=== PATIENT | female | born 1940 | race Caucasian/White ===

== ENCOUNTER 2018-05-31 10:07 | Emergency (ER) | payer OTHER ==
[2018-05-31] MEDS ORDERED: HYDROCODONE/APAP 7.5/325 MG TAB ONE (11:05)
--- NOTE | 2018-05-31 11:50 | ER ---
Nurse's Notes [facility] Name: Radha Limon Age: 78 yrs Sex: Female : 1940 Arrival Date: 05/31/2018 Time: 10:09 Bed 11 Private MD: None, None Diagnosis: Displaced fracture of fifth metatarsal bone, right foot Presentation: 05/31 10:11 Presenting complaint: Patient states: i fell a week ago and hurt my R foot mostly on hj the side of the foot, and now is swollen and it hurts, 8/10; denies hitting head and LOC; denies tingling and numbness;. Transition of care: patient was not received from another setting of care. Onset of symptoms was May 31, 2018. Risk Assessment: Do you want to hurt yourself or someone else? Patient reports no desire to harm self or others. Initial Sepsis Screen: Does the patient meet any 2 criteria? No. Patient's initial sepsis screen is negative. Does the patient have a suspected source of infection? No. Patient's initial sepsis screen is negative. Care prior to arrival: None. 10:11 Method Of Arrival: Ambulatory 10:11 Acuity: CRISTHIAN 4 hj Triage Assessment: 10:16 General: Appears in no apparent distress. uncomfortable, Behavior is calm, cooperative, hj appropriate for age. Pain: Complains of pain in lateral side of right foot and dorsum of right foot. Historical: - Allergies: 10:16 No Known Drug Allergies; hj - Home Meds: 10:16 aspirin 81 mg Oral chew 1 tab once daily [Active]; Furosemide Oral [Active]; ipratropium-albuterol 0.5 mg-3 mg(2.5 mg base)/3 mL Inhl nebu 3 mL 4 times per day [Active]; levothyroxine 50 mcg tab 1 tab once daily [Active]; lisinopril 10 mg Oral tab 1 tab once daily [Active]; metformin 500 mg Oral tab 1 tab 2 times per day [Active]; nitroglycerin 0.4 mg SL subl 1 tab [Active]; Plavix 75 mg Oral tab 1 tab once daily [Active]; ProAir 1to 2 puffs by mouth every 4-6 hrs as needed [Active]; simvastatin 20 mg Oral tab 1 tab once daily [Active]; Simvastatin Oral [Active]; Symbicort inhalation [Active]; - PMHx: 10:16 COPD; Diabetes - NIDDM; Hyperlipidemia; Hypothyroidism; hj - PSHx: 10:16 Heart procedure; Stent to right leg; Cholecystectomy; hj - Immunization history:: Adult Immunizations up to date. - Social history:: Smoking status: Patient uses tobacco products, Patient/guardian denies using alcohol. - Ebola Screening: : Patient negative for fever greater than or equal to 101.5 degrees Fahrenheit, and additional compatible Ebola Virus Disease symptoms Patient denies exposure to infectious person Patient denies travel to an Ebola-affected area in the 21 days before illness onset. Screenin:16 Abuse screen: Denies threats or abuse. Denies injuries from another. Nutritional hj screening: No deficits noted. Tuberculosis screening: No symptoms or risk factors identified. Fall Risk None identified. Assessment: 10:42 General: Appears in no apparent distress. Behavior is calm, cooperative. Pain: iw Complains of pain in right foot. Neuro: Level of Consciousness is awake, alert, obeys commands, Oriented to person, place, time, situation, Moves all extremities. Full function. Cardiovascular: Patient's skin is warm and dry. 10:43 Respiratory: Respiratory effort is even, unlabored, Respiratory pattern is regular, iw symmetrical. Vital Signs: 10:17 BP 109 / 94; Pulse 94; Resp 20; Temp 98.3(TE); Pulse Ox 94% on R/A; Weight 73.94 kg; hj Height 5 ft. 7 in. (170.18 cm); Pain 8/10; 10:17 Body Mass Index 25.53 (73.94 kg, 170.18 cm) ED Course: 10:09 Patient arrived in ED. mr 10:09 None, None is Private Physician. mr 10:14 Triage completed. hj 10:17 Arm band placed on left wrist. hj 10:17 Patient has correct armband on for positive identification. Bed in low position. Call light in reach. Side rails up X 1. 10:38 Johanna Benedict, MIKAL is Primary Nurse. iw 10:39 Owen Mantilla PA is PHCP. jr8 10:39 Taye Addison MD is Attending Physician. jr8 11:47 X-ray completed. Portable x-ray completed in exam room. Patient tolerated procedure la2 well. 11:48 Gilbert Crews DPM is Referral Physician. jr8 11:51 Ronald Carreno DPM is Referral Physician. jr8 11:51 Referral Physician role handed off by Gilbert Crews DPM jr8 12:00 XRAY Foot RIGHT 3 View In Process Unspecified. EDMS 12:20 No provider procedures requiring assistance completed. Patient did not have IV access iw during this emergency room visit. Administered Medications: 11:02 Drug: [place] (7.5 mg-325 mg) 1 tabs Route: PO; iw Outcome: 11:50 Discharge ordered by MD. jr8 12:22 Discharged to home via wheelchair, with family. iw 12:22 Condition: good 12:22 Discharge instructions given to patient, family, Instructed on discharge instructions, follow up and referral plans. medication usage, Demonstrated understanding of instructions, follow-up care, medications, Prescriptions given X 1. 12:24 Patient left the ED. iw Signatures: Dispatcher [employer] EDMS Agnieszka Moulton Irene RN MIKAL Owen Mantilla PA PA jr8 Carlito Andre RN RN hj Ardoin, Leslie la2 Corrections: (The following items were deleted from the chart) 10:14 10:11 Presenting complaint: Patient states: i fell a week ago and hurt my R foot, and hj now is swollen and it hurts, 06/02; denies hitting head and LOC; denies tingling and numbness; hj
--- NOTE | 2018-05-31 11:51 | EDPHYS ---
Physician Documentation [facility] Name: Radha Limon Age: 78 yrs Sex: Female : 1940 Arrival Date: 05/31/2018 Time: 10:09 Bed 11 Private MD: None, None ED Physician Taye Addison HPI: 05/31 10:56 This 78 yrs old Female presents to ER via Ambulatory with complaints of Foot jr8 Pain. 10:56 The patient presents with pain, swelling, tenderness. The complaints affect the lateral jr8 aspect of right foot and dorsum of right foot. Onset: The symptoms/episode began/occurred acutely, 2 week(s) ago. Modifying factors: The symptoms are alleviated by nothing. the symptoms are aggravated by movement, weight bearing. Associated signs and symptoms: The patient has no apparent associated signs or symptoms. Severity of symptoms: At their worst the symptoms were mild, in the emergency department the symptoms are unchanged. The patient has not experienced similar symptoms in the past. The patient has not recently seen a physician. stated that she fell 2 weeks ago on right foot. Since then has had continued pain . Historical: - Allergies: 10:16 No Known Drug Allergies; hj - Home Meds: 10:16 aspirin 81 mg Oral chew 1 tab once daily [Active]; Furosemide Oral [Active]; ipratropium-albuterol 0.5 mg-3 mg(2.5 mg base)/3 mL Inhl nebu 3 mL 4 times per day [Active]; levothyroxine 50 mcg tab 1 tab once daily [Active]; lisinopril 10 mg Oral tab 1 tab once daily [Active]; metformin 500 mg Oral tab 1 tab 2 times per day [Active]; nitroglycerin 0.4 mg SL subl 1 tab [Active]; Plavix 75 mg Oral tab 1 tab once daily [Active]; ProAir 1to 2 puffs by mouth every 4-6 hrs as needed [Active]; simvastatin 20 mg Oral tab 1 tab once daily [Active]; Simvastatin Oral [Active]; Symbicort inhalation [Active]; - PMHx: 10:16 COPD; Diabetes - NIDDM; Hyperlipidemia; Hypothyroidism; hj - PSHx: 10:16 Heart procedure; Stent to right leg; Cholecystectomy; hj - Immunization history:: Adult Immunizations up to date. - Social history:: Smoking status: Patient uses tobacco products, Patient/guardian denies using alcohol. - Ebola Screening: : Patient negative for fever greater than or equal to 101.5 degrees Fahrenheit, and additional compatible Ebola Virus Disease symptoms Patient denies exposure to infectious person Patient denies travel to an Ebola-affected area in the 21 days before illness onset. ROS: 10:56 Eyes: Negative for injury, pain, redness, and discharge, ENT: Negative for injury, jr8 pain, and discharge, Neck: Negative for injury, pain, and swelling, Cardiovascular: Negative for chest pain, palpitations, and edema, Respiratory: Negative for shortness of breath, cough, wheezing, and pleuritic chest pain, Abdomen/GI: Negative for abdominal pain, nausea, vomiting, diarrhea, and constipation, Back: Negative for injury and pain, Skin: Negative for injury, rash, and discoloration, Neuro: Negative for headache, weakness, numbness, tingling, and seizure. 10:56 MS/extremity: Positive for ecchymosis, pain, swelling, tenderness, of the right foot. Exam: 10:56 Cardiovascular: Regular rate and rhythm with a normal S1 and S2. No gallops, murmurs, jr8 or rubs. Normal PMI, no JVD. No pulse deficits. Respiratory: Lungs have equal breath sounds bilaterally, clear to auscultation and percussion. No rales, rhonchi or wheezes noted. No increased work of breathing, no retractions or nasal flaring. Skin: Warm, dry with normal turgor. Normal color with no rashes, no lesions, and no evidence of cellulitis. Neuro: Awake and alert, GCS 15, oriented to person, place, time, and situation. Cranial nerves II-XII grossly intact. Motor strength 5/5 in all extremities. Sensory grossly intact. Cerebellar exam normal. Normal gait. 10:56 Musculoskeletal/extremity: Extremities: grossly normal except: noted in the right foot: ecchymosis, pain, swelling, tenderness, ROM: intact in all extremities, limited active range of motion due to pain, limited passive range of motion due to pain, Circulation is intact in all extremities. Sensation intact. Vital Signs: 10:17 BP 109 / 94; Pulse 94; Resp 20; Temp 98.3(TE); Pulse Ox 94% on R/A; Weight 73.94 kg; hj Height 5 ft. 7 in. (170.18 cm); Pain 06/02; 10:17 Body Mass Index 25.53 (73.94 kg, 170.18 cm) Procedures: 11:48 Splinting: Splint applied to right foot using Ortho 3D boot, applied by nurse. Examined jr8 by me, post splint application: neurovascular intact, 2+ distal pulses palpable, brisk capillary refill noted, Patient tolerated well. MDM: 10:41 Patient medically screened. jr8 11:48 Data reviewed: vital signs, nurses notes, radiologic studies, plain films, and as a jr8 result, I will discharge patient. Data interpreted: Pulse oximetry: on room air is 94 %. Interpretation: acceptable. Counseling: I had a detailed discussion with the patient and/or guardian regarding: the historical points, exam findings, and any diagnostic results supporting the discharge/admit diagnosis, radiology results, the need for outpatient follow up, a freight solicitor, to return to the emergency department if symptoms worsen or persist or if there are any questions or concerns that arise at home. 05/31 10:40 Order name: XRAY Foot RIGHT 3 View; Complete Time: 12:16 jr8 Administered Medications: 11:02 Drug: [place] (7.5 mg-325 mg) 1 tabs Route: PO; Disposition: 15:23 Co-signature as Attending Physician, Taye Addison MD. rn Disposition: 05/31/18 11:50 Discharged to Home. Impression: Displaced fracture of fifth metatarsal bone, right foot. - Condition is Stable. - Discharge Instructions: Avulsion Fracture of the Foot. - Prescriptions for Tramadol 50 mg Oral Tablet - take 1 tablet by ORAL route every 8 hours as needed; 20 tablet. - Medication Reconciliation Form, Thank You Letter, Antibiotic Education, Prescription Opioid Use form. - Follow up: Gilbert Crews DPM; When: 2 - 3 days; Reason: Recheck today's complaints, Continuance of care, Re-evaluation by your physician. Follow up: Ronald Carreno DPM; When: 2 - 3 days; Reason: Recheck today's complaints, Continuance of care, Re-evaluation by your physician. - Problem is new. - Symptoms have improved. Signatures: Dispatcher [employer] Johanna Swift RN RN iw Nieto, Roman, MD MD rn Roszak Owen, PA PA jr8 Carlito Andre RN RN hj Corrections: (The following items were deleted from the chart) 11:51 11:50 05/31/2018 11:50 Discharged to Home. Impression: Displaced fracture of fifth jr8 metatarsal bone, right foot. Condition is Stable. Forms are Medication Reconciliation Form, Thank You Letter, Antibiotic Education, Prescription Opioid Use. Follow up: Gilbert Crews; When: 2 - 3 days; Reason: Recheck today's complaints, Continuance of care, Re-evaluation by your physician. Problem is new. Symptoms have improved. jr8 12:24 11:51 05/31/2018 11:50 Discharged to Home. Impression: Displaced fracture of fifth iw metatarsal bone, right foot. Condition is Stable. Discharge Instructions: Avulsion Fracture of the Foot. Prescriptions for Tramadol 50 mg Oral Tablet - take 1 tablet by ORAL route every 8 hours as needed; 20 tablet. and Forms are Medication Reconciliation Form, Thank You Letter, Antibiotic Education, Prescription Opioid Use. Follow up: Dr. Ronald Carreno; When: 2 - 3 days; Reason: Recheck today's complaints, Continuance of care, Re-evaluation by your physician. Problem is new. Symptoms have improved. jr8
--- NOTE | 2018-05-31 12:13 | RAD REPORT ---
EXAM DESCRIPTION: RAD - Foot Right 3 View - 05/31/2018 11:59 am CLINICAL HISTORY: PAIN COMPARISON: Foot Right 3 View dated 09/15/2017 FINDINGS: Oblique fracture is present involving the distal fifth metatarsal shaft. Soft tissue swell ing is seen about the foot.
[2018-05-31 12:28] VITALS: BP 109/94; TEMP 98.3; O2SAT 94
== END 2018-05-31 12:24 | disposition home or self-care (01) ==
LOC: ER 10:07
DX: S62.306A Unspecified fracture of fifth metacarpal bone, right hand, initial encounter for closed fracture (principal); W19.XXXA Unspecified fall, initial encounter; Y93.9 Activity, unspecified; Y92.9 Unspecified place or not applicable; Z79.01 Long term (current) use of anticoagulants; Z79.82 Long term (current) use of aspirin; Z72.0 Tobacco use; E78.5 Hyperlipidemia, unspecified; E03.9 Hypothyroidism, unspecified; E11.9 Type 2 diabetes mellitus without complications
CPT/HCPCS: 99283

== ENCOUNTER 2018-06-12 17:45 | Inpatient (IN) | payer OTHER ==
[2018-06-12 19:37] LABS: Protime INR 0.97
[2018-06-12] MEDS ORDERED: METHYLPREDNISOLONE 125 MG INJ ONE (19:47)
[2018-06-12] MEDS ORDERED: ALBUTEROL 2.5 MG/3 ML NEB SOL ONE ×2 (19:47→20:57)
[2018-06-12] MEDS ORDERED: FENTANYL CITR 100 MCG/2 ML ONE (19:48)
[2018-06-12] MEDS ORDERED: NA CHLORIDE 0.9% 1,000 ML ONE (19:48)
--- NOTE | 2018-06-12 20:00 | RAD REPORT ---
EXAM DESCRIPTION: RAD - Pelvis - 06/12/2018 7:37 pm CLINICAL HISTORY: fall Left-sided pain COMPARISON: None FINDINGS: AP pelvis, left hip and left femur - multiple projections are submitted No acute fracture or dislocation is seen. Diffuse osteopenia. No radiographic evidence of AVN. Heavy atherosclerosis is seen. If patient pain persists or there is difficulty with weight-bearing, MR imag ing followup would be recommended.
[2018-06-12 20:01] LABS: Absolute Lymphocytes (CBC) 1.6 K/uL (0.7-4.9); Absolute Monocytes 0.5 K/uL (0.1-1.3); Absolute Neutrophil 3.5 K/uL (1.8-8.0); Basophils % 0.4 % (0-1.3); Eosinophils % 0.7 % (0-4.4); Lymphocytes % 28.8 % (15.3-44.8); MCH 29.1 pg (27.0-35.0); MCV 90.5 fL (80-100); MPV 8.1 fL (7.6-11.3); Monocytes % 8.9 % (3.3-12.3); RBC Red Blood Cell Count 5.52 M/uL (3.86-4.86)
[2018-06-12 20:04] LABS: ALT/SGPT 10 U/L (12-78); AST/SGOT 20 U/L (15-37); Albumin 3.3 g/dL (3.4-5.0); Alkaline Phosphatase 102 U/L (45-117); BUN Blood Urea Nitrogen 15 mg/dL (7-18); Bicarbonate 36 mmol/L (21-32); Bilirubin Direct < 0.1 mg/dL (0-0.2); Bilirubin Total 0.5 mg/dL (0.2-1.0); CKMB Creatine Kinase MB < 1.0 ng/mL (0.3-3.6); Creatine Phosphokinase 72 U/L (26-192); Glucose Level 92 mg/dL (74-106); Lipase 134 U/L (73-393); Magnesium 2.4 mg/dL (1.8-2.4); NT PRO-BNP 1034 pg/mL (<450); Protein, Total 8.3 g/dL (6.4-8.2); Sodium Level 136 mmol/L (136-145)
--- NOTE | 2018-06-12 21:03 | RAD REPORT ---
EXAM DESCRIPTION: CT - Head C Spine Cap W Con - 06/12/2018 8:42 pm CLINICAL HISTORY: Trauma, head and neck injury. Chest, abdomen and pelvis pain. PAIN COMPARISON: Head C Spine Cap W Con dated 02/20/2016 TECHNIQUE: CT head without contrast. CT cervical spine without contrast with coronal and sagittal reformatted images. CT chest, abdomen and pelvis with IV contrast (approximately 100 mL nonionic IV contrast) with queen l and sagittal reformatted images of the spine. All CT scans are performed using dose optimization technique as appropriate and may include automated exposure control or mA/KV adjustment according to patient size. FINDINGS: CT HEAD WITHOUT CONTRAST: No intracranial hemorrhage, hydrocephalus or extra-axial fluid collection. Prominent diminished densi ty is seen in the periventricular and deep white matter compatible with chronic microvascular ischemi c changes. No areas of brain edema or midline shift. The paranasal sinuses and mastoids are clear. The calvarium is intact. CT CERVICAL SPINE WITHOUT CONTRAST: No fracture or subluxation. Significant carotid atherosclerosis noted. The prevertebral soft tissues are normal in thickness.A large diffuse thyroid goiter is seen. CT CHEST, ABDOMEN, PELVIS WITH CONTRAST: Mediastinal lymphadenopathy is noted, in the pretracheal space measuring 13 mm, right hilar region me asuring 15 mm and sub-carinal region measuring 12 mm. Irregular mass is present in the superior segme nt right lower lobe medially posterior to the right hilum measuring 3.4 x 3.3 cm. Adjacent opacities in the medial superior segment right lower lobe are likely related to postobstructive pneumonitis. Th e mass appears to abut the bronchus to the superior segment.Prominent COPD pattern is noted.No pneumo thorax or pericardial/pleural fluid. No evidence of intra-abdominal visceral injury, free fluid or free air. Mild liver cirrhosis suspecte d appear cholecystectomy clips is seen. Infrarenal abdominal aortic aneurysm is present measuring 4.2 cm in transverse dimension. Moderate mural thrombus is present. Calcifications are seen in the pancr eas likely related to chronic pancreatitis. No pelvic hematoma. Prominent degenerative changes present lower lumbar spine. 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 Mediastinal lymphadenopathy is present, presumably metastatic in nature. No trauma related abnormality is seen.
--- NOTE | 2018-06-12 21:03 | RAD REPORT ---
EXAM DESCRIPTION: RAD - Chest Single View - 06/12/2018 7:38 pm CLINICAL HISTORY: Cough;COPD Chest pain. COMPARISON: Chest Single View dated 09/15/2017; CHEST SINGLE VIEW dated 04/10/2015; CHEST SINGLE VIEW dated 04/08/2015 FINDINGS: Portable technique limits examination quality. Diffuse COPD is present. Right hilar soft tissue mass is suspected, new since the comparative study. The heart is mildly enlarged in size. No displaced fractures.
[2018-06-12 21:11] LABS: Urine Blood NEGATIVE (NEG); Urine Glucose NEGATIVE (NEG); Urine Protein TRACE (NEG); Urine Specific Gravity 1.025 (1.005-1.030)
--- NOTE | 2018-06-12 21:14 | EDPHYS ---
Physician Documentation [facility] Name: Radha Limon Age: 78 yrs Sex: Female : 1940 Arrival Date: 06/12/2018 Time: 18:03 Bed 27 Private MD: ED Physician Mat Mccloud HPI: 06/12 19:11 This 78 yrs old Female presents to ER via EMS with complaints of Fall Injury, zhou Shortness Of Breath. 19:11 This 78 yrs old Female presents to ER via EMS with complaints of Fall Injury, zhou Shortness Of Breath. 19:11 Details of fall: The patient fell from an upright position, while walking. Onset: The zhou symptoms/episode began/occurred just prior to arrival. Associated injuries: The patient sustained injury to the head, injury to the abdomen, left leg, decreased range of motion, painful injury. Severity of symptoms: At their worst the symptoms were mild, moderate, in the emergency department the symptoms are unchanged. The patient has not experienced similar symptoms in the past. Historical: - Allergies: 18:07 No Known Drug Allergies; dm5 - Home Meds: 18:07 aspirin 81 mg Oral chew 1 tab once daily [Active]; Furosemide Oral [Active]; dm5 ipratropium-albuterol 0.5 mg-3 mg(2.5 mg base)/3 mL Inhl nebu 3 mL 4 times per day [Active]; levothyroxine 50 mcg tab 1 tab once daily [Active]; lisinopril 10 mg Oral tab 1 tab once daily [Active]; metformin 500 mg Oral tab 1 tab 2 times per day [Active]; nitroglycerin 0.4 mg SL subl 1 tab [Active]; Plavix 75 mg Oral tab 1 tab once daily [Active]; ProAir 1to 2 puffs by mouth every 4-6 hrs as needed [Active]; simvastatin 20 mg Oral tab 1 tab once daily [Active]; Simvastatin Oral [Active]; Symbicort inhalation [Active]; - PMHx: 18:07 COPD; Diabetes - NIDDM; Hyperlipidemia; Hypothyroidism; dm5 - PSHx: 18:07 Heart procedure; Stent to right leg; Cholecystectomy; dm5 - Immunization history:: Adult Immunizations not up to date. - Social history:: Smoking status: Patient uses tobacco products, smokes one pack cigarettes per day. - Ebola Screening: : Patient negative for fever greater than or equal to 101.5 degrees Fahrenheit, and additional compatible Ebola Virus Disease symptoms Patient denies exposure to infectious person Patient denies travel to an Ebola-affected area in the 21 days before illness onset. ROS: 19:12 Constitutional: Negative for fever, chills, and weight loss, Eyes: Negative for injury, zhou pain, redness, and discharge, ENT: Negative for injury, pain, and discharge, Neck: Negative for injury, pain, and swelling, Cardiovascular: Negative for chest pain, palpitations, and edema, Back: Negative for injury and pain, : Negative for injury, bleeding, discharge, and swelling, Skin: Negative for injury, rash, and discoloration, Neuro: Negative for headache, weakness, numbness, tingling, and seizure, Psych: Negative for depression, anxiety, suicide ideation, homicidal ideation, and hallucinations, Allergy/Immunology: Negative for hives, rash, and allergies, Endocrine: Negative for neck swelling, polydipsia, polyuria, polyphagia, and marked weight changes, Hematologic/Lymphatic: Negative for swollen nodes, abnormal bleeding, and unusual bruising. 19:12 Respiratory: Positive for cough, shortness of breath, wheezing, expiratory. 19:12 Abdomen/GI: Positive for abdominal pain, of the left upper quadrant and left lower quadrant. 19:12 MS/extremity: Positive for decreased range of motion, pain, of the left hip and lateral aspect of left thigh. Exam: 19:12 Constitutional: This is a well developed, well nourished patient who is awake, alert, zhou and in no acute distress. Head/Face: Normocephalic, atraumatic. Eyes: Pupils equal round and reactive to light, extra-ocular motions intact. Lids and lashes normal. Conjunctiva and sclera are non-icteric and not injected. Cornea within normal limits. Periorbital areas with no swelling, redness, or edema. ENT: Nares patent. No nasal discharge, no septal abnormalities noted. Tympanic membranes are normal and external auditory canals are clear. Oropharynx with no redness, swelling, or masses, exudates, or evidence of obstruction, uvula midline. Mucous membranes moist. Neck: Trachea midline, no thyromegaly or masses palpated, and no cervical lymphadenopathy. Supple, full range of motion without nuchal rigidity, or vertebral point tenderness. No Meningismus. Chest/axilla: Normal chest wall appearance and motion. Nontender with no deformity. No lesions are appreciated. Cardiovascular: Regular rate and rhythm with a normal S1 and S2. No gallops, murmurs, or rubs. Normal PMI, no JVD. No pulse deficits. Female : Normal external genitalia. Skin: Warm, dry with normal turgor. Normal color with no rashes, no lesions, and no evidence of cellulitis. Neuro: Awake and alert, GCS 15, oriented to person, place, time, and situation. Cranial nerves II-XII grossly intact. Motor strength 5/5 in all extremities. Sensory grossly intact. Cerebellar exam normal. Normal gait. Psych: Awake, alert, with orientation to person, place and time. Behavior, mood, and affect are within normal limits. 19:12 Respiratory: mild respiratory distress is noted, Respirations: labored breathing, that is mild, Breath sounds: bronchial sounds, decreased breath sounds, rhonchi, wheezing: expiratory Respiratory rate: 35 Vital Signs: 18:07 BP 178 / 94; Pulse 91; Resp 37; Temp 99; Pulse Ox 94% on 2 lpm NC; Pain 7/10; dm5 20:27 BP 198 / 97; Pulse 88; Pulse Ox 94% on 2 lpm NC; rv 21:20 BP 141 / 122 LA Supine (auto/reg); Pulse 95; Resp 18 S; Pulse Ox 96% on 2.5 lpm NC; jp3 22:30 BP 134 / 71; Pulse 108; Pulse Ox 93% on BiPAP; bs1 MDM: 18:33 Patient medically screened. [facility] 19:14 Data reviewed: vital signs, nurses notes, lab test result(s), EKG, radiologic studies, [facility] CT scan, plain films. 06/12 19:08 Order name: Basic Metabolic Panel; Complete Time: 20:46 [facility] 06/12 19:08 Order name: CBC with Diff; Complete Time: 20:46 [facility] 06/12 19:08 Order name: Ckmb; Complete Time: 20:46 [facility] 06/12 19:08 Order name: CPK; Complete Time: 20:46 [facility] 06/12 19:08 Order name: LFT's; Complete Time: 20:46 [facility] 06/12 19:08 Order name: Magnesium; Complete Time: 20:46 [facility] 06/12 19:08 Order name: NT PRO-BNP; Complete Time: 20:46 [facility] 06/12 19:08 Order name: PT-INR; Complete Time: 20:46 [facility] 06/12 19:08 Order name: Ptt, Activated; Complete Time: 20:46 [facility] 06/12 19:08 Order name: Troponin (emerg Dept Use Only); Complete Time: 20:46 [facility] 06/12 19:08 Order name: Blood Culture Adult (2) 06/12 19:08 Order name: Lipase; Complete Time: 20:46 [facility] 06/12 20:47 Order name: ABG [facility] 06/12 20:53 Order name: Urine Dipstick--Ancillary (enter results); Complete Time: 22:06 ar 06/12 19:08 Order name: XRAY Chest (1 view); Complete Time: 21:06 [facility] 06/12 19:08 Order name: CT Traumagram (Head C Spine CAP W Con); Complete Time: 21:06 [facility] 06/12 19:08 Order name: Femur Left XRAY 06/12 19:08 Order name: Pelvis XRAY; Complete Time: 20:46 [facility] 06/12 19:08 Order name: Hip Left 2 View XRAY 06/12 22:05 Order name: BIPAP [facility] 06/12 19:08 Order name: EKG; Complete Time: 19:09 [facility] 06/12 19:08 Order name: Cardiac monitoring; Complete Time: 21:02 [facility] 06/12 19:08 Order name: EKG - Nurse/Tech; Complete Time: 21:02 [facility] 06/12 19:08 Order name: IV Saline Lock; Complete Time: 21:02 [facility] 06/12 19:08 Order name: Labs collected and sent; Complete Time: 21:02 [facility] 06/12 19:08 Order name: O2 Per Protocol; Complete Time: 21:02 [facility] 06/12 19:08 Order name: O2 Sat Monitoring; Complete Time: 21:02 [facility] 06/12 19:08 Order name: Urine Dipstick-Ancillary (obtain specimen); Complete Time: 21:02 [facility] 06/12 21:19 Order name: CONS Physician Consult EDMS Administered Medications: 19:45 Drug: Albuterol - atroVENT (3:1) (2.5 mg - 0.5 mg) 3 ml Route: Nebulizer; rv 20:23 Follow up: Response: No adverse reaction rv 19:58 Drug: NS 0.9% 500 ml Route: IV; Rate: bolus; Site: right antecubital; rv 23:05 Follow up: IV Status: Completed infusion rv 19:58 Drug: fentaNYL (PF) 25 mcg Route: IVP; Site: right antecubital; rv 20:24 Follow up: Response: No adverse reaction rv 19:58 Drug: SOLU-Medrol 125 mg Route: IVP; Site: right antecubital; rv 20:24 Follow up: Response: No adverse reaction rv 19:59 Drug: NS 0.9% 1000 ml Route: IV; Rate: 125 ml/hr; Site: right antecubital; rv 23:04 Follow up: IV Status: Completed infusion rv 20:35 Drug: Albuterol 5 mg Route: Inhalation; rv 22:45 Drug: levofloxacin 500 mg Volume: 100 ml; Route: IVPB; Infused Over: 60 mins; Site: rv right antecubital; 22:54 Drug: Decadron - Dexamethasone 10 mg Route: IVP; Site: right antecubital; rv 23:04 Follow up: Response: Medication administered at discharge. rv 22:54 Drug: Magnesium Sulfate 1 grams Route: IVPB; Infused Over: 1 hrs; Site: left forearm; rv 23:04 Follow up: IV Status: Infusion continued upon admission rv 22:54 Drug: Pepcid 20 mg Route: IVP; Site: right antecubital; rv 23:03 Follow up: Response: Medication administered at discharge. rv Disposition: 06/12/18 21:13 Hospitalization ordered by Bell Crump for Inpatient Admission. 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 - Bed requested for Telemetry/MedSurg (Inpatient). - Status is Inpatient Admission. bs1 - Condition is Fair. - Problem is new. - Symptoms have improved. UTI on Admission? No Signatures: Dispatcher [employer] Vira Sanchez RN RN dm5 Mat Mccloud MD MD cha Garcia, Cindy, RN RN Bella Fernandez RN RN bs1 Mario Ching RN RN rv Corrections: (The following items were deleted from the chart) 22:05 21:13 Hospitalization Ordered by Bell Crump MD for Inpatient Admission. 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 Bed requested for Telemetry/MedSurg (Inpatient). Status is Inpatient Admission. Condition is Fair. Problem is new. Symptoms have improved. UTI on Admission? No. [facility] 23:23 22:05 06/12/2018 21:13 Hospitalization Ordered by Bell Crump MD for Inpatient bs1 Admission. 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 Bed requested for Telemetry/MedSurg (Inpatient). Status is Inpatient Admission. Condition is Fair. Problem is new. Symptoms have improved. UTI on Admission? No. cg
--- NOTE | 2018-06-12 21:14 | ER ---
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 pt has a history of falls. dm5 "always on the left side" per patient. Pt complains of pain to the left leg. Transition of care: patient was not received from another setting of care. Onset of symptoms was June 12, 2018. Risk Assessment: Do you want to hurt yourself or someone else? Patient reports no desire to harm self or others. Initial Sepsis Screen: Does the patient meet any 2 criteria? RR > 20 per min. No. Patient's initial sepsis screen is negative. Does the patient have a suspected source of infection? No. Patient's initial sepsis screen is negative. Care prior to arrival: None. 18:04 Method Of Arrival: EMS: [facility] dm5 18:04 Acuity: CRISTHIAN 3 dm5 18:07 Note EMS reports pt o2 sat at home was 88%. dm5 Historical: - Allergies: 18:07 No Known Drug Allergies; dm5 - Home Meds: 18:07 aspirin 81 mg Oral chew 1 tab once daily [Active]; Furosemide Oral [Active]; dm5 ipratropium-albuterol 0.5 mg-3 mg(2.5 mg base)/3 mL Inhl nebu 3 mL 4 times per day [Active]; levothyroxine 50 mcg tab 1 tab once daily [Active]; lisinopril 10 mg Oral tab 1 tab once daily [Active]; metformin 500 mg Oral tab 1 tab 2 times per day [Active]; nitroglycerin 0.4 mg SL subl 1 tab [Active]; Plavix 75 mg Oral tab 1 tab once daily [Active]; ProAir 1to 2 puffs by mouth every 4-6 hrs as needed [Active]; simvastatin 20 mg Oral tab 1 tab once daily [Active]; Simvastatin Oral [Active]; Symbicort inhalation [Active]; - PMHx: 18:07 COPD; Diabetes - NIDDM; Hyperlipidemia; Hypothyroidism; dm5 - PSHx: 18:07 Heart procedure; Stent to right leg; Cholecystectomy; dm5 - Immunization history:: Adult Immunizations not up to date. - Social history:: Smoking status: Patient uses tobacco products, smokes one pack cigarettes per day. - Ebola Screening: : Patient negative for fever greater than or equal to 101.5 degrees Fahrenheit, and additional compatible Ebola Virus Disease symptoms Patient denies exposure to infectious person Patient denies travel to an Ebola-affected area in the 21 days before illness onset. Screenin:14 Abuse screen: Denies threats or abuse. Denies injuries from another. Nutritional rv screening: No deficits noted. Tuberculosis screening: No symptoms or risk factors identified. Fall Risk None identified. Assessment: 18:13 General: Appears in no apparent distress. uncomfortable, Behavior is calm, cooperative. rv Pain: Complains of pain in left leg. 18:13 Neuro: Level of Consciousness is awake, alert, obeys commands, Oriented to person, rv place, time, situation. Cardiovascular: Capillary refill < 3 seconds. Respiratory: Airway is patent. GI: No signs and/or symptoms were reported involving the gastrointestinal system. : No signs and/or symptoms were reported regarding the genitourinary system. EENT: No signs and/or symptoms were reported regarding the EENT system. Derm: Skin is intact. 20:27 Reassessment: Patient appears in no apparent distress at this time. Patient and/or rv family updated on plan of care and expected duration. Pain level reassessed. Patient is alert, oriented x 3, equal unlabored respirations, skin warm/dry/pink. Vital Signs: 18:07 BP 178 / 94; Pulse 91; Resp 37; Temp 99; Pulse Ox 94% on 2 lpm NC; Pain 7/10; dm5 20:27 BP 198 / 97; Pulse 88; Pulse Ox 94% on 2 lpm NC; rv 21:20 BP 141 / 122 LA Supine (auto/reg); Pulse 95; Resp 18 S; Pulse Ox 96% on 2.5 lpm NC; jp3 22:30 BP 134 / 71; Pulse 108; Pulse Ox 93% on BiPAP; bs1 ED Course: 18:03 Patient arrived in ED. dm5 18:06 Triage completed. dm5 18:07 Arm band placed on right wrist. Patient placed in an exam room, on a stretcher, on dm5 oxygen, on hall monitor, on pulse oximetry. 18:15 Inserted saline lock: 20 gauge in right antecubital area, using aseptic technique. rv 18:17 Patient has correct armband on for positive identification. Bed in low position. Call rv light in reach. Side rails up X2. Adult w/ patient. Pulse ox on. NIBP on. 18:33 Mat Mccloud MD is Attending Physician. zhou 19:37 XRAY Chest (1 view) In Process Unspecified. EDMS 19:37 Femur Left XRAY In Process Unspecified. EDMS 19:37 Pelvis XRAY In Process Unspecified. EDMS 19:37 Hip Left 2 View XRAY In Process Unspecified. EDMS 20:42 CT Traumagram (Head C Spine CAP W Con) In Process Unspecified. EDMS 21:11 Bell Crump MD is Hospitalizing Provider. zhou 21:19 Oxygen administration via nasal cannula 2.5L/min. jp3 22:55 Inserted saline lock: 20 gauge in left forearm, using aseptic technique. rv 23:05 No provider procedures requiring assistance completed. Patient admitted, IV remains in rv place. intact. Administered Medications: 19:45 Drug: Albuterol - atroVENT (3:1) (2.5 mg - 0.5 mg) 3 ml Route: Nebulizer; rv 20:23 Follow up: Response: No adverse reaction rv 19:58 Drug: NS 0.9% 500 ml Route: IV; Rate: bolus; Site: right antecubital; rv 23:05 Follow up: IV Status: Completed infusion rv 19:58 Drug: fentaNYL (PF) 25 mcg Route: IVP; Site: right antecubital; rv 20:24 Follow up: Response: No adverse reaction rv 19:58 Drug: SOLU-Medrol 125 mg Route: IVP; Site: right antecubital; rv 20:24 Follow up: Response: No adverse reaction rv 19:59 Drug: NS 0.9% 1000 ml Route: IV; Rate: 125 ml/hr; Site: right antecubital; rv 23:04 Follow up: IV Status: Completed infusion rv 20:35 Drug: Albuterol 5 mg Route: Inhalation; rv 22:45 Drug: levofloxacin 500 mg Volume: 100 ml; Route: IVPB; Infused Over: 60 mins; Site: rv right antecubital; 22:54 Drug: Decadron - Dexamethasone 10 mg Route: IVP; Site: right antecubital; rv 23:04 Follow up: Response: Medication administered at discharge. rv 22:54 Drug: Magnesium Sulfate 1 grams Route: IVPB; Infused Over: 1 hrs; Site: left forearm; rv 23:04 Follow up: IV Status: Infusion continued upon admission rv 22:54 Drug: Pepcid 20 mg Route: IVP; Site: right antecubital; rv 23:03 Follow up: Response: Medication administered at discharge. rv Outcome: 21:13 Decision to Hospitalize by Provider. zhou 23:05 Admitted to Tele accompanied by tech, via stretcher, room 409, with chart, Other bipap rv Report called to MARYBEL REN 23:05 Condition: good 23:05 Instructed on the need for admit. 23:23 Patient left the ED. bs1 Signatures: Dispatcher [employer] Vira Sanchez, RN RN dm5 Mat Mccloud MD MD cha Salazar, Brittany RN RN bs1 Mario Ching RN RN rv José Miguel Peres 3
[2018-06-12 22:01] LABS: Arterial Blood Carboxyhemoglob 4.4 % (0-1.5); Blood Gas Oxyhemoglobin 86.2 % (94-97); Blood O2 Saturation 91.2 % (92-98.5)
--- NOTE | 2018-06-12 22:14 | P.HP ---
Certification for Inpatient Patient admitted to: Inpatient With expected LOS: >2 Midnights Practitioner: I am a practitioner with admitting privileges, knowledge of patient current condition, hospital course, and medical plan of care. Services: Services provided to patient in accordance with Admission requirements found in Title 42 Section 412.3 of the Code of Federal Regulations Patient History Date of Service: 06/12/18 Reason for admission: new hilar mass, fall History of Present Illness: Ms Limon is a 78-year-old woman with history of COPD, tobacco abuse, hypertension , diabetes mellitus type 2, hypothyroidism, who was at home today when she accidentally tripped and fell from an upright position. As consequence of the fall, she he started, abdominal wound, left shoulder and left leg. She denied any loss of conscious. She also denied any dizziness, palpitation, or chest pain prior to the fall. The patient states that she has been more weak since a couple of weeks. Her daughters, who are at the bedside, states that the patient has been losing weight in the last month. The patient says that he has no appetite. The patient denied any fever or chills, not increasing cough, no bloody expectoration. In ED, she had an extensive workup, including CT of the head/cervical/thorax/abdomen/pelvis. CT of the head report not acute abnormality. 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 Allergies No Known Drug Allergies Allergy (Unverified 04/09/15 01:46) Unknown No Known Allergies Allergy (Uncoded 02/20/16 15:04) Unknown Home medications list reviewed: Yes Home Medications: Mag Hydroxide 8% [Milk Of Magnesia*] 30 ml PO PRN PRN 04/09/15 Nitroglycerin [Nitrostat*] 1 tab SL PRN PRN 04/09/15 Aspirin Chewable [Aspirin Chewable*] 162 mg PO DAILY #60 tab.chew 04/10/15 Clopidogrel Bisulfate [Plavix*] 1 tab PO DAILY #30 tablet 04/10/15 Furosemide [Lasix*] 40 mg PO DAILY #30 tab 04/10/15 Levothyroxine Sodium [Unithroid] 50 mcg PO DAILY #30 tablet 04/10/15 Lisinopril [Prinivil*] 10 mg PO DAILY #30 tab 04/10/15 Metformin ER [Glucophage ER*] 500 mg PO DAILY #30 tab.sa 04/10/15 Simvastatin 40 mg PO DAILY #30 tablet 04/10/15 predniSONE [Deltasone] 20 mg PO BID #10 tab 04/10/15 - Past Medical/Surgical History Diabetic: Yes -: CHF -: COPD -: DMII -: Hypothyroid -: Hyperlipidemia -: Asthma -: Choley -: Eye sx X3 -: Colon surgery -: Cardiac stent -: PAD stent bilaterally - Family History Mother -: Heart disease - Social History Smoking Status: Current every day smoker Counseled patient to stop smoking for: less than 10 minutes Smoking therapy provided: Yes Patient receptive to therapy: Yes Alcohol use: Yes CD- Drugs: No Caffeine use: Yes Review of Systems 10-point ROS is otherwise unremarkable Physical Examination - Physical Exam General: Alert, In no apparent distress HEENT: Atraumatic, PERRLA, Mucous membr. moist/pink, EOMI, Sclerae nonicteric Neck: Supple, 2+ carotid pulse no bruit, No LAD, Without JVD or thyroid abnormality Respiratory: Diminished, Expiratory wheezes Cardiovascular: Regular rate/rhythm, Normal S1 S2 Gastrointestinal: Normal bowel sounds, No tenderness Musculoskeletal: No tenderness Integumentary: No rashes Neurological: Normal speech, Normal strength at 5/5 x4 extr, Normal tone, Normal affect Lymphatics: No axilla or inguinal lymphadenopathy - Studies Laboratory Data (last 24 hrs) 06/12/18 18:45: PT 11.5, INR 0.97, APTT 27.6 06/12/18 18:45: WBC 5.7, Hgb 16.1 H, Hct 50.0 H, Plt Count 208 06/12/18 18:45: Sodium 136, Potassium 4.0, BUN 15, Creatinine 0.70, Glucose 92, Magnesium 2.4, Total Bilirubin 0.5, AST 20, ALT 10 L, Alkaline Phosphatase 102, Lipase 134 Assessment and Plan - Problems (Diagnosis) (1) Fall Current Visit: Yes Status: Acute Qualifiers: Encounter type: initial encounter Qualified Code(s): W19.XXXA - Unspecified fall, initial encounter (2) Hilar mass Current Visit: Yes Status: Acute (3) Hypertension Current Visit: Yes Status: Acute Qualifiers: Hypertension type: essential hypertension Qualified Code(s): I10 - Essential (primary) hypertension (4) Weakness Current Visit: Yes Status: Acute (5) COPD (chronic obstructive pulmonary disease) Onset Date: 04/09/15 Current Visit: No Status: Acute Qualifiers: COPD type: unspecified COPD Qualified Code(s): J44.9 - Chronic obstructive pulmonary disease, unspecified - Plan The patient will be admitted to the hospital due to progressive weakness, associated with new right hilar mass found. She sustained a fall at home this afternoon, fortunately, there is no bone fractures found. Will consult sales agent financial report service, for evaluation recommendation. Consult PT. - Advance Directives Does patient have a Living Will: No Does patient have a Durable POA for Healthcare: No - Code Status/Comfort Care Code Status Assessed: Yes Code Status: Full Code
[2018-06-12] MEDS ORDERED: MAGNESIUM SULFATE 1 gm IVPB 1 GM/100 ML BAG IV ONE (22:46)
[2018-06-12] MEDS ORDERED: DEXAMETHASONE 10 MG/ML VIAL ONE (22:46)
[2018-06-12] MEDS ORDERED: FAMOTIDINE 20 MG/2 ML VIAL IV ONE (22:46)
[2018-06-12] MEDS ORDERED: Levofloxacin500mg IV 500 MG/100 ML BAG IV ONE (22:46)
[2018-06-13] MEDS ORDERED: IPRATROPIUM BROM 0.5MG/2.5ML NEB PRN (00:04)
[2018-06-13] MEDS ORDERED: ONDANSETRON 4 MG/2 ML VIAL IV PRN (00:04)
[2018-06-13] MEDS ORDERED: NICOTINE 14 MG/PAT TD PRN (00:04)
[2018-06-13] MEDS ORDERED: ACETAMINOPHEN 500 MG TAB PO PRN (00:04)
[2018-06-13] MEDS ORDERED: ALBUTEROL 2.5 MG/3 ML NEB SOL NEB PRN (00:04)
[2018-06-13] MEDS: METHYLPREDNISOLONE 40 MG INJ IV SCH ×3 (01:24→16:34)
[2018-06-13 02:08] VITALS: BMI 21.4
[2018-06-13 06:33] LABS: Absolute Lymphocytes (CBC) 0.4 K/uL (0.7-4.9); Absolute Neutrophil 4.1 K/uL (1.8-8.0); Basophils % 0.1 % (0-1.3); Hematocrit 47.8 % (36.0-45.0); Lymphocytes % 9.3 % (15.3-44.8); MCH 29.5 pg (27.0-35.0); MPV 8.3 fL (7.6-11.3); RBC Red Blood Cell Count 5.31 M/uL (3.86-4.86)
[2018-06-13 06:41] LABS: Potassium 4.5 mmol/L (3.5-5.1)
[2018-06-13] MEDS: INSULIN -REGULAR HUMAN 50 UNIT/0.5 ML ML SQ SCH ×3 (07:30→16:34)
[2018-06-13 08:30] VITALS: O2SAT 96
--- NOTE | 2018-06-13 08:36 | P.CNS ---
Date of Consult: 06/20/18 Reason for Consult: Rlung mass Chief Complaint: Fall History of Present Illness: Pt is 78 yrs age Aw fall and pain in Right foot. Hx of COPD. ON BD's heavy smoker. Has SOBOE. found to have R hilar mas with possible adenopathy.Pt admitted with fall no fractures Allergies hydrocortisone Allergy (Verified 06/12/18 23:57) Nausea/Vomiting Home Medications: Mag Hydroxide 8% [Milk Of Magnesia*] 30 ml PO PRN PRN 04/09/15 Nitroglycerin [Nitrostat*] 1 tab SL PRN PRN 04/09/15 Aspirin Chewable [Aspirin Chewable*] 162 mg PO DAILY #60 tab.chew 04/10/15 Clopidogrel Bisulfate [Plavix*] 1 tab PO DAILY #30 tablet 04/10/15 Furosemide [Lasix*] 40 mg PO DAILY #30 tab 04/10/15 Levothyroxine Sodium [Unithroid] 50 mcg PO DAILY #30 tablet 04/10/15 Lisinopril [Prinivil*] 10 mg PO DAILY #30 tab 04/10/15 Metformin ER [Glucophage ER*] 500 mg PO DAILY #30 tab.sa 04/10/15 Simvastatin 40 mg PO DAILY #30 tablet 04/10/15 predniSONE [Deltasone] 20 mg PO BID #10 tab 04/10/15 - Past Medical/Surgical History Diabetic: Yes -: CHF -: COPD -: DMII -: Hypothyroid -: Hyperlipidemia -: Asthma -: Choley -: Eye sx X3 -: Colon surgery -: Cardiac stent -: PAD stent bilaterally - Family History Father Notes: parkinsons Sister History Unknown: Yes Brother Medical History: Heart disease Notes: heart attack Mother Medical History: Heart disease - Social History Smoking Status: Current every day smoker Alcohol use: No CD- Drugs: No Caffeine use: Yes Place of Residence: Home Review of Systems 10-point ROS is otherwise unremarkable Respiratory: Shortness of Breath Musculoskeletal: Foot Pain Physical Examination Temp Pulse Resp BP Pulse Ox 97.8 F 86 20 144/76 H 96 06/13/18 00:00 06/13/18 00:00 06/13/18 00:00 06/13/18 00:00 06/13/18 00:00 General: Alert, Oriented x3 HEENT: Atraumatic Neck: Supple Respiratory: Diminished, Expiratory wheezes Cardiovascular: No edema, Regular rate/rhythm Gastrointestinal: Normal bowel sounds, Soft and benign Musculoskeletal: No clubbing, No swelling Integumentary: No rashes, No breakdown Laboratory Data (last 24 hrs) 06/12/18 18:45: PT 11.5, INR 0.97, APTT 27.6 06/12/18 18:45: WBC 5.7, Hgb 16.1 H, Hct 50.0 H, Plt Count 208 06/12/18 18:45: Sodium 136, Potassium 4.0, BUN 15, Creatinine 0.70, Glucose 92, Magnesium 2.4, Total Bilirubin 0.5, AST 20, ALT 10 L, Alkaline Phosphatase 102, Lipase 134 - Problems (1) Lung mass Current Visit: Yes Status: Acute Plan: R lung mass and adenopathy. High risk for lung cancer. Heavy smoker and hx of sevre COPD. Needs OP ABURTO wiht PET scan, PFt's MRI etc. Advised pt to f/u with me in 1-2 wks. Mass not amenable to FNA or bronch. Will need T surgery evaluation (2) COPD (chronic obstructive pulmonary disease) Onset Date: 04/09/15 Current Visit: No Status: Acute Plan: HX of severe COPD Active smoker. Need to update list of inhalers. Pt should be on LABA and LAMA with inhaled steroid. Advsied to quit smoking hyposci hypercapneic. Qualifiers: COPD type: unspecified COPD Qualified Code(s): J44.9 - Chronic obstructive pulmonary disease, unspecified
[2018-06-13 09:32] LABS: Blood Morphology Comment NOT SEEN (NOT SEEN); Platelet Estimate ADEQ; Urine White Blood Cell Casts OK
--- NOTE | 2018-06-13 12:46 | EKG ---
Test Date: 2018-06-13 Test Time: 00:53:39 Print Shop Stenographer: MEASUREMENT RESULTS: Intervals: Rate: 79 CA: 154 QRSD: 78 QT: 442 QTc: 506 Huntley: P: 65 CA: 154 QRS: -37 T: 44 INTERPRETIVE STATEMENTS: Sinus rhythm with fusion complexes Possible Left atrial enlargement Left axis deviation Anterior infarct, age undetermined Abnormal ECG Compared to ECG 09/15/2017 10:07:11 Fusion complex(es) now present Left-axis deviation now present Myocardial infarct finding still present Electronically Signed On 06-13-18 12:44:24 CDT by Casper Jon
--- NOTE | 2018-06-13 15:40 | P.SSS ---
Patient History Date of Service: 06/13/18 Reason for admission: Fall History of Present Illness: Ms Limon is a 78-year-old woman with history of COPD, tobacco abuse, hypertension , diabetes mellitus type 2, hypothyroidism, who was at home today when she accidentally tripped and fell from an upright position. As consequence of the fall, she he started, abdominal wound, left shoulder and left leg. She denied any loss of conscious. She also denied any dizziness, palpitation, or chest pain prior to the fall. The patient states that she has been more weak since a couple of weeks. Her daughters, who are at the bedside, states that the patient has been losing weight in the last month. The patient says that he has no appetite. The patient denied any fever or chills, not increasing cough, no bloody expectoration. In ED, she had an extensive workup, including CT of the head/cervical/thorax/abdomen/pelvis. CT of the head report not acute abnormality. 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 Allergies hydrocortisone Allergy (Verified 06/12/18 23:57) Nausea/Vomiting Home Medications: Mag Hydroxide 8% [Milk Of Magnesia*] 30 ml PO PRN PRN 04/09/15 Nitroglycerin [Nitrostat*] 1 tab SL PRN PRN 04/09/15 Aspirin Chewable [Aspirin Chewable*] 162 mg PO DAILY #60 tab.chew 04/10/15 Clopidogrel Bisulfate [Plavix*] 1 tab PO DAILY #30 tablet 04/10/15 Furosemide [Lasix*] 40 mg PO DAILY #30 tab 04/10/15 Levothyroxine Sodium [Unithroid] 50 mcg PO DAILY #30 tablet 04/10/15 Lisinopril [Prinivil*] 10 mg PO DAILY #30 tab 04/10/15 Metformin ER [Glucophage ER*] 500 mg PO DAILY #30 tab.sa 04/10/15 Simvastatin 40 mg PO DAILY #30 tablet 04/10/15 predniSONE [Prednisone*] 20 mg PO BID #10 tab 04/10/15 - Past Medical/Surgical History Has patient received pneumonia vaccine in the past: Yes Diabetic: Yes -: CHF -: COPD -: DMII -: Hypothyroid -: Hyperlipidemia -: Asthma -: Choley -: Eye sx X3 -: Colon surgery -: Cardiac stent -: PAD stent bilaterally - Family History Father Notes: parkinsons Sister History Unknown: Yes Brother -: Heart disease Notes: heart attack Mother -: Heart disease - Social History Smoking Status: Current every day smoker Alcohol use: No CD- Drugs: No Caffeine use: Yes Place of Residence: Home Review of Systems 10-point ROS is otherwise unremarkable General: As per HPI Physical Examination - Vital Signs Temperature: 97.6 F Blood Pressure: 169/87 Pulse: 71 Respirations: 18 Pulse Ox (%): 96 - Physical Exam General: Alert, In no apparent distress HEENT: Atraumatic, PERRLA, Mucous membr. moist/pink, EOMI, Sclerae nonicteric Neck: Supple, 2+ carotid pulse no bruit, No LAD, Without JVD or thyroid abnormality Respiratory: Clear to auscultation bilaterally, Normal air movement Cardiovascular: Regular rate/rhythm, Normal S1 S2 Gastrointestinal: Normal bowel sounds, No tenderness Musculoskeletal: No tenderness Integumentary: No rashes Neurological: Normal gait, Normal speech, Normal strength at 5/5 x4 extr, Normal tone, Normal affect Lymphatics: No axilla or inguinal lymphadenopathy - Studies Laboratory Data (last 24 hrs) 06/12/18 18:45: PT 11.5, INR 0.97, APTT 27.6 06/12/18 18:45: WBC 5.7, Hgb 16.1 H, Hct 50.0 H, Plt Count 208 06/12/18 18:45: Sodium 136, Potassium 4.0, BUN 15, Creatinine 0.70, Glucose 92, Magnesium 2.4, Total Bilirubin 0.5, AST 20, ALT 10 L, Alkaline Phosphatase 102, Lipase 134 - Diagnosis (Problem(s)) (1) Fall Onset Date: 06/13/18 Current Visit: Yes Status: Resolved Qualifiers: Encounter type: initial encounter Qualified Code(s): W19.XXXA - Unspecified fall, initial encounter (2) Hilar mass Onset Date: 06/13/18 Current Visit: Yes Status: Acute (3) Hypertension Onset Date: 06/13/18 Current Visit: Yes Status: Chronic Qualifiers: Hypertension type: essential hypertension Qualified Code(s): I10 - Essential (primary) hypertension (4) CHF (congestive heart failure) Onset Date: 04/09/15 Current Visit: No Status: Chronic Qualifiers: Heart failure type: unspecified Heart failure chronicity: chronic Qualified Code(s): I50.9 - Heart failure, unspecified (5) COPD (chronic obstructive pulmonary disease) Onset Date: 04/09/15 Current Visit: No Status: Chronic Qualifiers: COPD type: unspecified COPD Qualified Code(s): J44.9 - Chronic obstructive pulmonary disease, unspecified Treatment Summary: Overall during the hospital stay patient main stable. Patient initially admitted to the hospital for right-sided hilar mass. Patient has a long history smoking this lung cancer is highly on the differential. Patient was seen by pulmonology here in the hospital who recommended outpatient workup for her lung mass. Patient will be following up with pulmonology in about 1-2 weeks post discharge. Patient remained stable while here in the hospital no dyspnea was noted and thus was discharged home under stable condition. - Disposition Disposition: ROUTINE DISCHARGE Condition: GOOD Diet: Regular Activity: Ad micheal
[2018-06-13 17:49] VITALS: BP 181/78; TEMP 97.7
--- NOTE | 2018-06-14 10:51 | RAD REPORT ---
EXAM DESCRIPTION: RAD - Femur Left - 06/12/2018 7:37 pm CLINICAL HISTORY: Fall Left-sided pain COMPARISON: None FINDINGS: AP pelvis, left hip and left femur - multiple projections are submitted No acute fracture or dislocation is seen. Diffuse osteopenia. No radiographic evidence of AVN. Heavy atherosclerosis is seen. If patient pain persists or there is difficulty with weight-bearing, MR imag ing followup would be recommended.
--- NOTE | 2018-06-14 10:51 | RAD REPORT ---
EXAM DESCRIPTION: RAD - Hip Left 2 View - 06/12/2018 7:37 pm CLINICAL HISTORY: Fall Left-sided pain COMPARISON: None FINDINGS: AP pelvis, left hip and left femur - multiple projections are submitted No acute fracture or dislocation is seen. Diffuse osteopenia. No radiographic evidence of AVN. Heavy atherosclerosis is seen. If patient pain persists or there is difficulty with weight-bearing, MR imag ing followup would be recommended.
== END 2018-06-13 18:11 | disposition home or self-care (01) | DRG 204 ==
LOC: ER 17:45 → ERHOLD 21:15 → 4TH 23:04
PROVIDERS: ADMIT Internal Medicine; ATTEND Family Medicine
DX: R91.8 Other nonspecific abnormal finding of lung field (principal); R53.1 Weakness; J44.9 Chronic obstructive pulmonary disease, unspecified; F17.210 Nicotine dependence, cigarettes, uncomplicated; E11.9 Type 2 diabetes mellitus without complications; I50.9 Heart failure, unspecified; I11.0 Hypertensive heart disease with heart failure; E78.5 Hyperlipidemia, unspecified; R63.4 Abnormal weight loss; E03.9 Hypothyroidism, unspecified; Z88.8 Allergy status to other drugs, medicaments and biological substances; Z79.84 Long term (current) use of oral hypoglycemic drugs; Z79.02 Long term (current) use of antithrombotics/antiplatelets; Z79.82 Long term (current) use of aspirin; Z79.52 Long term (current) use of systemic steroids; W01.0XXA Fall on same level from slipping, tripping and stumbling without subsequent striking against object, initial encounter; Y92.009 Unspecified place in unspecified non-institutional (private) residence as the place of occurrence of the external cause; Z95.5 Presence of coronary angioplasty implant and graft
CPT/HCPCS: 36415; 70450; 71045; 71260; 72125; 72170; 74177; 80048; 80076; 81003; 82550; 82553; 82805; 82962; 83690; 83735; 83880; 84484; 85025; 85610; 85730; 87040; 93005; 94640; 94660; 97163; 99285; J1100; J2920; J2930; J3010; J3475; J7030; Q9967

== ENCOUNTER 2018-11-06 18:27 | Inpatient (IN) | payer OTHER ==
[2018-11-06] MEDS ORDERED: ALBUTEROL 2.5 MG/3 ML NEB SOL ONE (19:11)
[2018-11-06] MEDS ORDERED: ACETAMINOPHEN 325 MG TABLET ONE ×2 (19:12→20:30)
[2018-11-06] MEDS ORDERED: IPRATROPIUM BROM 0.5MG/2.5ML ONE (19:12)
[2018-11-06] MEDS ORDERED: ACETAMINOPHEN 500 MG TAB ONE (19:13)
[2018-11-06 19:14] LABS: Absolute Lymphocytes (CBC) 0.8 K/uL (0.7-4.9); Absolute Neutrophil 10.1 K/uL (1.8-8.0); Basophils % 0.3 % (0-1.3); Lymphocytes % 7.1 % (15.3-44.8); MPV 8.4 fL (7.6-11.3); Monocytes % 8.1 % (3.3-12.3); RBC Red Blood Cell Count 4.58 M/uL (3.86-4.86)
[2018-11-06 19:18] LABS: Protime INR 1.09
[2018-11-06 19:31] LABS: ALT/SGPT 17 U/L (12-78); AST/SGOT 30 U/L (15-37); Albumin 3.1 g/dL (3.4-5.0); Alkaline Phosphatase 111 U/L (45-117); BUN Blood Urea Nitrogen 30 mg/dL (7-18); Bicarbonate 31 mmol/L (21-32); Bilirubin Direct 0.5 mg/dL (0-0.2); Bilirubin Total 1.1 mg/dL (0.2-1.0); CKMB Creatine Kinase MB < 1.0 ng/mL (0.3-3.6); Creatine Phosphokinase 165 U/L (26-192); Glucose Level 129 mg/dL (74-106); Lipase 87 U/L (73-393); Magnesium 2.2 mg/dL (1.8-2.4); NT PRO-BNP 424 pg/mL (<450); Potassium 3.8 mmol/L (3.5-5.1); Protein, Total 8.1 g/dL (6.4-8.2); Sodium Level 132 mmol/L (136-145); Troponin (Emerg Dept Use Only) < 0.02 ng/mL (0.0-0.045)
--- NOTE | 2018-11-06 20:33 | RAD REPORT ---
EXAM DESCRIPTION: Ute Single View11/06/2018 8:13 pm CLINICAL HISTORY: Shortness of breath COMPARISON: May 2018 FINDINGS: The mid lateral left lung is hazy suspicious for a pneumonia. The 3.4 centimeter mass within the right lung seen on the prior exam is either stable or diminished i n size. The heart is normal size
[2018-11-06] MEDS ORDERED: NA CHLORIDE 0.9% 500 ML ONE ×2 (20:52→23:33)
--- NOTE | 2018-11-06 21:17 | ER ---
Nurse's Notes [facility] Name: Radha Limon Age: 78 yrs Sex: Female : 1940 Arrival Date: 11/06/2018 Time: 18:30 Bed 7 Private MD: Diagnosis: COPD exacerbation;Pneumonia due to other specified infectious organisms Presentation: 11/06 18:30 Presenting complaint: EMS states: Shortness of breath x 2 days, worsening today. jl7 Transition of care: patient was not received from another setting of care. Onset of symptoms was November 04, 2018. Risk Assessment: Do you want to hurt yourself or someone else? Patient reports no desire to harm self or others. Care prior to arrival: None. 18:30 Method Of Arrival: EMS: [facility] 18:30 Acuity: CRISTHIAN 2 jl7 Triage Assessment: 18:33 General: Appears in no apparent distress. uncomfortable, Behavior is calm, cooperative, jl7 appropriate for age. Pain: Complains of pain in mid-sternal area Pain does not radiate. Pain currently is 10 out of 10 on a pain scale. Quality of pain is described as pressure, Is intermittent. EENT: No signs and/or symptoms were reported regarding the EENT system. Neuro: Level of Consciousness is awake, alert, obeys commands, Oriented to person, place, time, situation. Cardiovascular: Heart tones S1 S2 present Patient's skin is warm and dry. Respiratory: Reports shortness of breath at rest Airway is patent Respiratory effort is even, labored, Respiratory pattern is symmetrical, tachypnea Breath sounds with wheezes bilaterally. Onset: The symptoms/episode began/occurred 2 days ago, the patient has moderate shortness of breath. GI: No signs and/or symptoms were reported involving the gastrointestinal system. : No signs and/or symptoms were reported regarding the genitourinary system. Derm: Skin is pink, warm \\T\\ dry. Musculoskeletal: No signs and/or symptoms reported regarding the musculoskeletal system. Historical: - Allergies: 18:33 hydrocortisone; jl7 - PMHx: 18:33 COPD; Diabetes - NIDDM; Hyperlipidemia; Hypothyroidism; jl7 - Social history:: Smoking status: Patient uses tobacco products, pt states "I quit a couple days ago. Was smoking 3 cigarettes/day.". - Ebola Screening: : No symptoms or risks identified at this time. Screenin:09 Abuse screen: Denies threats or abuse. Denies injuries from another. Nutritional aa1 screening: No deficits noted. Tuberculosis screening: No symptoms or risk factors identified. Fall Risk IV access (20 points). Assessment: 19:09 General: Appears in no apparent distress. comfortable, Behavior is calm, cooperative, aa1 appropriate for age. Pain: Denies pain. Neuro: Level of Consciousness is awake, alert, obeys commands. Cardiovascular: Reports shortness of breath, Denies chest pain, lightheadedness, palpitations, Heart tones S1 S2 present Capillary refill < 3 seconds Patient's skin is warm and dry. Respiratory: Reports shortness of breath at rest cough that is Airway is patent Respiratory effort is even, unlabored, Respiratory pattern is tachypnea Breath sounds are coarse bilaterally. GI: No signs and/or symptoms were reported involving the gastrointestinal system. : No signs and/or symptoms were reported regarding the genitourinary system. EENT: No signs and/or symptoms were reported regarding the EENT system. Derm: Skin is intact, is healthy with good turgor, Skin is pink, warm \\T\\ dry. Musculoskeletal: Circulation, motion, and sensation intact. Capillary refill < 3 seconds. 20:46 Reassessment: Patient appears in no apparent distress at this time. Patient and/or aa1 family updated on plan of care and expected duration. Pain level reassessed. Patient is alert, oriented x 3, equal unlabored respirations, skin warm/dry/pink. Tests have resulted and awaiting review from MD. 21:37 Reassessment: Patient appears in no apparent distress at this time. Patient and/or aa1 family updated on plan of care and expected duration. Pain level reassessed. Patient is alert, oriented x 3, equal unlabored respirations, skin warm/dry/pink. MD at bedside discussing results with pt \\T\\ family; pt to be admitted. 22:58 Reassessment: Patient appears in no apparent distress at this time. Patient and/or aa1 family updated on plan of care and expected duration. Pain level reassessed. Patient is alert, oriented x 3, equal unlabored respirations, skin warm/dry/pink. Dr. Rojas at bedside for admission assessment. Vital Signs: 18:33 BP 124 / 74; Pulse 107; Resp 30 S; Temp 101.9(O); Pulse Ox 82% on R/A; Weight 63.96 kg jl7 (R); Height 5 ft. 6 in. (167.64 cm) (R); Pain 10/10; 18:37 BP 126 / 55; Pulse 106; Resp 30 S; Pulse Ox 98% on 3 lpm NC; jl7 19:09 BP 128 / 68; Pulse 101; Resp 28; Pulse Ox 100% on Nebulizer Mask; Pain 0/10; aa1 20:31 BP 91 / 49; Pulse 108; Resp 29; Pulse Ox 94% on NC; mt 20:43 Temp 98.8(O); mt 21:00 BP 97 / 53; Pulse 102; Resp 22; Pulse Ox 96% on 2 lpm NC; Pain 0/10; aa1 21:37 BP 101 / 55; Pulse 95; Resp 26; Pulse Ox 95% on 3 lpm NC; Pain 0/10; aa1 22:54 BP 97 / 55; Pulse 78; Resp 24; Pulse Ox 98% on NC; mt 11/07 00:09 BP 101 / 53; Pulse 73; Resp 24; Temp 98.3(O); Pulse Ox 99% on 2 lpm NC; fc 11/06 18:33 Body Mass Index 22.76 (63.96 kg, 167.64 cm) [facility] ED Course: 11/06 18:30 Patient arrived in ED. jl7 18:32 Triage completed. jl7 18:33 Arm band placed on right wrist. jl7 18:41 Lazaro Mc MD is Attending Physician. tw4 18:55 Inserted saline lock: 20 gauge in right antecubital area, using aseptic technique. ca1 Blood collected. 18:55 Initial lab(s) drawn, by me, sent to lab. First set of blood cultures drawn by me. ca1 19:00 Oxygen administration via nasal cannula \\T\\ 3L/min. aa1 19:04 Belkys Siddiqui, RN is Primary Nurse. ca1 19:09 Patient has correct armband on for positive identification. Bed in low position. Call aa1 light in reach. Side rails up X2. penology professor on. Pulse ox on. NIBP on. 19:19 Notified ED physician of a critical lab result(s). d dimer 1432. fc 20:13 Chest Single View XRAY In Process Unspecified. EDMS 21:14 Louie Rojas MD is Hospitalizing Provider. tw4 11/07 00:11 No provider procedures requiring assistance completed. Patient admitted, IV remains in fc place. Administered Medications: 11/06 19:06 Drug: Tylenol 1000 mg Route: PO; jl7 20:47 Follow up: Response: No adverse reaction; Temperature is decreased aa1 19:06 Drug: Albuterol - atroVENT (3:1) (2.5 mg - 0.5 mg) 3 ml Route: Nebulizer; jl7 20:47 Follow up: Response: No adverse reaction; Marked relief of symptoms aa1 20:50 Drug: NS 0.9% 500 ml Route: IV; Rate: bolus; Site: right antecubital; aa1 21:50 Follow up: IV Status: Completed infusion aa1 21:32 Drug: Rocephin - (cefTRIAXone) 2 grams Route: IVPB; Infused Over: 30 mins; Site: right aa1 antecubital; 21:42 Follow up: IV Status: Completed infusion aa1 21:32 Drug: LevaQUIN 500 mg Volume: 100 ml; Route: IVPB; Infused Over: 60 mins; Site: right aa1 antecubital; 22:35 Follow up: IV Status: Completed infusion aa1 23:20 Drug: NS 0.9% 500 ml Route: IV; Rate: bolus; Site: right antecubital; rr5 Outcome: 21:16 Decision to Hospitalize by Provider. tw4 11/07 00:13 Admitted to Tele accompanied by tech, via wheelchair, room 429, with chart, Report fc called to Janis REN Condition: good Discharge instructions given to patient, Instructed on the need for admit, Demonstrated understanding of instructions. 00:30 Patient left the ED. aa1 Signatures: Dispatcher [employer] EDMS Samantha Paris RN RN aa1 Dacia Muniz RN MIKAL Jeremiah Rehman RN RN jl7 Neena Morales mt, Terrence, MD MD tw4 Joao Arreaga RN RN rr5 Belkys Siddiqui RN RN ca1
--- NOTE | 2018-11-06 21:17 | EDPHYS ---
Physician Documentation [facility] Name: Radha Limon Age: 78 yrs Sex: Female : 1940 Arrival Date: 11/06/2018 Time: 18:30 Bed 7 Private MD: ED Physician Lazaro Mc HPI: 11/07 22:11 This 78 yrs old Female presents to ER via EMS with complaints of Shortness Of tw4 Breath. 22:11 The patient has shortness of breath at rest. Onset: The symptoms/episode began/occurred tw4 today. Duration: The symptoms are continuous, and are unchanged since they started. The patient's shortness of breath has no apparent modifying factors. Associated signs and symptoms: The patient has no apparent associated signs or symptoms. Severity of symptoms: At their worst the symptoms were moderate in the emergency department the symptoms are unchanged. The patient has not experienced similar symptoms in the past. The patient has not recently seen a physician. Historical: - Allergies: 11/06 18:33 hydrocortisone; jl7 - PMHx: 18:33 COPD; Diabetes - NIDDM; Hyperlipidemia; Hypothyroidism; jl7 - Social history:: Smoking status: Patient uses tobacco products, pt states "I quit a couple days ago. Was smoking 3 cigarettes/day.". - Ebola Screening: : No symptoms or risks identified at this time. ROS: 11/07 22:11 Constitutional: Negative for fever, chills, and weight loss, Cardiovascular: Negative tw4 for chest pain, palpitations, and edema, Abdomen/GI: Negative for abdominal pain, nausea, vomiting, diarrhea, and constipation, Back: Negative for injury and pain, MS/Extremity: Negative for injury and deformity, Skin: Negative for injury, rash, and discoloration. Respiratory: Positive for shortness of breath, at rest. Exam: 22:11 Constitutional: This is a well developed, well nourished patient who is awake, alert, tw4 and in no acute distress. Head/Face: Normocephalic, atraumatic. Chest/axilla: Normal chest wall appearance and motion. Nontender with no deformity. No lesions are appreciated. Cardiovascular: Regular rate and rhythm with a normal S1 and S2. No gallops, murmurs, or rubs. Normal PMI, no JVD. No pulse deficits. Respiratory: Lungs have equal breath sounds bilaterally, clear to auscultation and percussion. No rales, rhonchi or wheezes noted. No increased work of breathing, no retractions or nasal flaring. Abdomen/GI: Soft, non-tender, with normal bowel sounds. No distension or tympany. No guarding or rebound. No evidence of tenderness throughout. Back: No spinal tenderness. No costovertebral tenderness. Full range of motion. MS/ Extremity: Pulses equal, no cyanosis. Neurovascular intact. Full, normal range of motion. Neuro: Awake and alert, GCS 15, oriented to person, place, time, and situation. Cranial nerves II-XII grossly intact. Motor strength 5/5 in all extremities. Sensory grossly intact. Cerebellar exam normal. Normal gait. Vital Signs: 11/06 18:33 BP 124 / 74; Pulse 107; Resp 30 S; Temp 101.9(O); Pulse Ox 82% on R/A; Weight 63.96 kg jl7 (R); Height 5 ft. 6 in. (167.64 cm) (R); Pain 10/10; 18:37 BP 126 / 55; Pulse 106; Resp 30 S; Pulse Ox 98% on 3 lpm NC; jl7 19:09 BP 128 / 68; Pulse 101; Resp 28; Pulse Ox 100% on Nebulizer Mask; Pain 0/10; aa1 20:31 BP 91 / 49; Pulse 108; Resp 29; Pulse Ox 94% on NC; mt 20:43 Temp 98.8(O); mt 21:00 BP 97 / 53; Pulse 102; Resp 22; Pulse Ox 96% on 2 lpm NC; Pain 0/10; aa1 21:37 BP 101 / 55; Pulse 95; Resp 26; Pulse Ox 95% on 3 lpm NC; Pain 0/10; aa1 22:54 BP 97 / 55; Pulse 78; Resp 24; Pulse Ox 98% on NC; mt 11/07 00:09 BP 101 / 53; Pulse 73; Resp 24; Temp 98.3(O); Pulse Ox 99% on 2 lpm NC; fc 11/06 18:33 Body Mass Index 22.76 (63.96 kg, 167.64 cm) [facility] MDM: 11/06 18:41 Patient medically screened. tw4 11/07 22:11 Differential diagnosis: Anemia asthma, Myocardial Infarction pneumonia, reactive airway tw4 disease, Sepsis. Antibiotic administration: Levaquin given, Rocephin and Zithromax given. Data reviewed: vital signs, nurses notes. Data interpreted: Pulse oximetry: Interpretation: hypoxia. Plan: will initiate a nebulizer treatment. Test interpretation: by ED physician or midlevel provider: ECG. Counseling: I had a detailed discussion with the patient and/or guardian regarding: the historical points, exam findings, and any diagnostic results supporting the discharge/admit diagnosis. Medication response: albuterol nebulizer treatment(s) partially relieved the patient's wheezing. Response to treatment: the patient's symptoms have mildly improved after treatment, and as a result, I will admit patient. Physician consultation: Louie Rojas MD regarding admission, patient's condition, need to evaluate the patient as soon as possible, and will see patient in ED. 11/06 18:42 Order name: Blood Culture Adult (2) 11/06 18:42 Order name: BMP; Complete Time: 20:41 11/06 20:43 Interpretation: Normal except: NA 132; CL 95; GLUC 129; BUN 30; GFR 60. 11/06 18:42 Order name: CBC with Diff; Complete Time: 20:41 11/06 20:42 Interpretation: Normal except: WBC 12.0; MCV 93.9; KELSEY% 84.5; LYM% 7.1; NEUT A 10.1. 11/06 18:42 Order name: Ckmb; Complete Time: 20:43 11/06 20:43 Interpretation: Within normal limits: CKMB < 1.0. 11/06 18:42 Order name: CPK; Complete Time: 20:43 11/06 20:43 Interpretation: Within normal limits: CPK 165. 11/06 18:42 Order name: D-Dimer; Complete Time: 20:41 11/06 18:42 Order name: Hepatic Function; Complete Time: 20:41 11/06 20:42 Interpretation: Normal except: BILID 0.5; BILIT 1.1; ALB 3.1; GLOB 5.0; A/G 0.6. 11/06 18:42 Order name: Lipase; Complete Time: 20:41 11/06 20:43 Interpretation: Within normal limits: LIP 87. 11/06 18:42 Order name: Magnesium tw4 11/06 18:42 Order name: NT PRO-BNP 4 11/06 18:42 Order name: PT-INR; Complete Time: 20:43 11/06 20:43 Interpretation: Normal except: PT 12.9. 11/06 18:42 Order name: Ptt, Activated 4 11/06 18:42 Order name: Troponin (emerg Dept Use Only) 4 11/06 21:20 Order name: Lactate 4 11/06 19:43 Order name: Chest Single View XRAY 4 11/06 23:02 Order name: CBC with Automated Diff EDMS 11/06 23:02 Order name: CBC with Automated Diff EDMS 11/06 23:02 Order name: Comprehensive Metabolic Panel EDMS 11/06 23:02 Order name: Comprehensive Metabolic Panel EDMS 11/06 23:02 Order name: Lactate EDMS 11/06 23:02 Order name: Lactate EDMS 11/06 23:02 Order name: Magnesium EDMS 11/06 23:02 Order name: Magnesium EDMS 11/06 23:02 Order name: Phosphorus EDMS 11/06 23:02 Order name: Phosphorus EDMS 11/06 23:02 Order name: NT PRO-BNP EDMS 11/06 23:02 Order name: NT PRO-BNP EDMS 11/06 18:42 Order name: EKG; Complete Time: 18:43 11/06 18:42 Order name: Cardiac monitoring; Complete Time: 18:51 11/06 18:42 Order name: EKG - Nurse/Tech; Complete Time: 18:51 11/06 18:42 Order name: IV Saline Lock; Complete Time: 19:08 11/06 18:42 Order name: Labs collected and sent; Complete Time: 19:08 11/06 18:42 Order name: O2 Per Protocol; Complete Time: 18:51 11/06 18:42 Order name: O2 Sat Monitoring; Complete Time: 18:52 11/06 23:02 Order name: Heart Healthy EDMS Administered Medications: 11/06 19:06 Drug: Tylenol 1000 mg Route: PO; jl7 20:47 Follow up: Response: No adverse reaction; Temperature is decreased aa1 19:06 Drug: Albuterol - atroVENT (3:1) (2.5 mg - 0.5 mg) 3 ml Route: Nebulizer; jl7 20:47 Follow up: Response: No adverse reaction; Marked relief of symptoms aa1 20:50 Drug: NS 0.9% 500 ml Route: IV; Rate: bolus; Site: right antecubital; aa1 21:50 Follow up: IV Status: Completed infusion aa1 21:32 Drug: Rocephin - (cefTRIAXone) 2 grams Route: IVPB; Infused Over: 30 mins; Site: right aa1 antecubital; 21:42 Follow up: IV Status: Completed infusion aa1 21:32 Drug: LevaQUIN 500 mg Volume: 100 ml; Route: IVPB; Infused Over: 60 mins; Site: right aa1 antecubital; 22:35 Follow up: IV Status: Completed infusion aa1 23:20 Drug: NS 0.9% 500 ml Route: IV; Rate: bolus; Site: right antecubital; rr5 Disposition: 11/06/18 21:16 Hospitalization ordered by Louie Rojas for Inpatient Admission. Preliminary diagnosis are COPD exacerbation, Pneumonia due to other specified infectious organisms. - Bed requested for Telemetry/MedSurg (Inpatient). - Status is Inpatient Admission. aa1 - Condition is Stable. - Problem is new. - Symptoms have improved. UTI on Admission? No Signatures: Dispatcher [employer] EDMS Samantha Paris RN RN aa1 Jeremiah Rehman RN RN jl7 Lazaro Mc MD MD tw4 Joao Arreaga RN RN rr5 Corrections: (The following items were deleted from the chart) 23:52 21:16 Hospitalization Ordered by Louie Rojas MD for Inpatient Admission. Preliminary rr5 diagnosis is COPD exacerbation; Pneumonia due to other specified infectious organisms. Bed requested for Telemetry/MedSurg (Inpatient). Status is Inpatient Admission. Condition is Stable. Problem is new. Symptoms have improved. UTI on Admission? No. tw4 11/07 00:30 11/06 23:52 11/06/2018 21:16 Hospitalization Ordered by Louie Rojas MD for Inpatient aa1 Admission. Preliminary diagnosis is COPD exacerbation; Pneumonia due to other specified infectious organisms. Bed requested for Telemetry/MedSurg (Inpatient). Status is Inpatient Admission. Condition is Stable. Problem is new. Symptoms have improved. UTI on Admission? No. rr5
[2018-11-06] MEDS ORDERED: Levofloxacin500mg IV 500 MG/100 ML BAG IV ONE (21:33)
[2018-11-06] MEDS ORDERED: CEFTRIAXONE/SWI 1gm 2 GM/20 ML SYR ONE (21:33)
[2018-11-06] MEDS ORDERED: ONDANSETRON 4 MG/2 ML VIAL IV PRN (22:57)
[2018-11-06] MEDS ORDERED: NA CHLORIDE 0.9% 1,000 ML IV SCH (23:00)
[2018-11-07] MEDS ORDERED: PIPER/TAZO/NS 3.375gm 6.750 GM/200 ML BAG ONE (00:55)
[2018-11-07 01:04] VITALS: BMI 20.7
[2018-11-07] MEDS: METHYLPREDNISOLONE 125 MG INJ IV SCH ×2 (01:11→06:07)
[2018-11-07] MEDS: PIPER/TAZO/NS 3.375gm 3.375 GM/100 ML BAG IVPB SCH ×2 (01:11→06:08)
[2018-11-07] MEDS: IPRATROPIUM BROM 0.5MG/2.5ML NEB SCH ×6 (02:30→20:00)
[2018-11-07] MEDS: ALBUTEROL 2.5 MG/3 ML NEB SOL NEB SCH ×4 (02:30→20:00)
--- NOTE | 2018-11-07 04:28 | P.HP ---
Certification for Inpatient Patient admitted to: Observation With expected LOS: <2 Midnights Patient will require the following post-hospital care: None Practitioner: I am a practitioner with admitting privileges, knowledge of patient current condition, hospital course, and medical plan of care. Services: Services provided to patient in accordance with Admission requirements found in Title 42 Section 412.3 of the Code of Federal Regulations Patient History Date of Service: 11/06/18 Reason for admission: Shortness of breath/pneumonia History of Present Illness: Patient is a 78-year-old female who presented to the emergency room with shortness of breath. Patient has been coughing and congested along with fever. Patient states she has not been feeling well for the last few days. In the emergency room, she had labs which revealed hyponatremia. Patient also had a chest x-ray which revealed haziness in the lateral left lung field suspicious for pneumonia. Patient was also found to have a 3.5cm mass in the right lung. This was seen at the months ago when patient was in the hospital after falling in May of 2018. Patient's best to follow up with her behavior support specialist. However , this has not had an. The mass is not really changed in size. Will probably get another CT of the chest in the morning to further evaluate this. Patient will also need an echocardiogram as patient has a history of diastolic heart failure. At this time will admit patient to the hospital for IV antibiotic therapy along with treatment of COPD exacerbation. Allergies hydrocortisone Allergy (Verified 06/12/18 23:57) Nausea/Vomiting Home Medications: Mag Hydroxide 8% [Milk Of Magnesia*] 30 ml PO PRN PRN 04/09/15 Nitroglycerin [Nitrostat*] 1 tab SL PRN PRN 04/09/15 Aspirin Chewable [Aspirin Chewable*] 162 mg PO DAILY #60 tab.chew 04/10/15 Clopidogrel Bisulfate [Plavix*] 1 tab PO DAILY #30 tablet 04/10/15 Furosemide [Lasix*] 40 mg PO DAILY #30 tab 04/10/15 Levothyroxine Sodium [Unithroid] 50 mcg PO DAILY #30 tablet 04/10/15 Lisinopril [Prinivil*] 10 mg PO DAILY #30 tab 04/10/15 Metformin ER [Glucophage ER*] 500 mg PO DAILY #30 tab.sa 04/10/15 Simvastatin 40 mg PO DAILY #30 tablet 04/10/15 predniSONE [Prednisone*] 20 mg PO BID #10 tab 04/10/15 - Past Medical/Surgical History Has patient received pneumonia vaccine in the past: No Diabetic: No -: CHF -: COPD -: DMII -: Hypothyroid -: Hyperlipidemia -: Asthma -: Choley -: Eye sx X3 -: Colon surgery -: Cardiac stent -: PAD stent bilaterally - Family History Father Notes: parkinsons Brother Medical History: Heart disease Notes: heart attack Mother Medical History: Heart disease - Social History Smoking Status: Former smoker Alcohol use: No CD- Drugs: No Caffeine use: Yes Place of Residence: Home Review of Systems 10-point ROS is otherwise unremarkable Physical Examination - Vital Signs Temperature: 98.3 F Blood Pressure: 101/53 Pulse: 73 Respirations: 24 Pulse Ox (%): 98 - Physical Exam General: Alert, In no apparent distress, Oriented x3 HEENT: Atraumatic, Normocephalic, PERRLA, Mucous membr. moist/pink Neck: Supple, 2+ carotid pulse no bruit, JVD not distended, No Thyromegaly, No LAD Respiratory: Expiratory wheezes, Rhonchi/gurgles Cardiovascular: Regular rate/rhythm, Normal S1 S2, Systolic murmur Gastrointestinal: Normal bowel sounds, Soft and benign, Non-distended, No tenderness, No rebound, No guarding Musculoskeletal: No clubbing Integumentary: No rashes, No breakdown, No tenderness/swelling, No warmth, No cyanosis Neurological: Normal speech, Normal strength at 5/5 x4 extr, Normal tone, Sensation intact, Cranial nerves 3-12 intact Lymphatics: No axilla or inguinal lymphadenopathy - Studies Laboratory Data (last 24 hrs) 11/06/18 18:55: PT 12.9 H, INR 1.09, APTT 26.9 11/06/18 18:55: WBC 12.0 H, Hgb 14.1, Hct 43.0, Plt Count 197 11/06/18 18:55: Sodium 132 L, Potassium 3.8, BUN 30 H, Creatinine 0.90, Glucose 129 H, Magnesium 2.2, Total Bilirubin 1.1 H, AST 30, ALT 17, Alkaline Phosphatase 111, Lipase 87 Assessment & Plan - Problems (Diagnosis) (1) Pneumonia Current Visit: Yes Status: Acute (2) Hyponatremia Current Visit: Yes Status: Acute (3) Hilar mass Onset Date: 06/13/18 Current Visit: No Status: Acute (4) CHF (congestive heart failure) Onset Date: 04/09/15 Current Visit: No Status: Chronic Qualifiers: Heart failure type: unspecified Heart failure chronicity: chronic Qualified Code(s): I50.9 - Heart failure, unspecified (5) COPD (chronic obstructive pulmonary disease) Onset Date: 04/09/15 Current Visit: No Status: Chronic Qualifiers: COPD type: unspecified COPD Qualified Code(s): J44.9 - Chronic obstructive pulmonary disease, unspecified (6) Hypertension Onset Date: 06/13/18 Current Visit: No Status: Chronic Qualifiers: Hypertension type: essential hypertension Qualified Code(s): I10 - Essential (primary) hypertension - Plan 1. Continue with IV antibiotics 2. Awaiting sputum and blood culture 3. Will proceed with CT scan of the chest if pneumonia is not improved to evaluate for postobstructive pneumonia 4. Pulmonary consultation 5. Continue with nebs as needed 6. O2 per protocol 7. Continue with gentle hydration 8. Repeat labs including CBC and renal function in a.m. 9. Echo with doppler 10. GI and DVT prophylaxis - Advance Directives Does patient have a Living Will: No Does patient have a Durable POA for Healthcare: No - Code Status/Comfort Care Code Status Assessed: Yes Code Status: Full Code Critical Care: No Time Spent Managing PTS Care (In Minutes): 50
[2018-11-07] MEDS ORDERED: MAGNESIUM HYDROXIDE 8% 30 ML PO PRN (04:44)
[2018-11-07 04:47] LABS: Absolute Lymphocytes (CBC) 0.4 K/uL (0.7-4.9); Absolute Monocytes 0.5 K/uL (0.1-1.3); Absolute Neutrophil 8.5 K/uL (1.8-8.0); Basophils % 0.1 % (0-1.3); Hematocrit 38.5 % (36.0-45.0); Lymphocytes % 4.3 % (15.3-44.8); MPV 8.5 fL (7.6-11.3); Monocytes % 5.3 % (3.3-12.3); RBC Red Blood Cell Count 4.09 M/uL (3.86-4.86)
[2018-11-07 04:59] LABS: Albumin 2.6 g/dL (3.4-5.0); Bilirubin Total 0.6 mg/dL (0.2-1.0); Phosphorus 2.5 mg/dL (2.5-4.9); Potassium 3.7 mmol/L (3.5-5.1); Protein, Total 6.7 g/dL (6.4-8.2)
[2018-11-07] MEDS ORDERED: POTASSIUM CL SA 10 MEQ TAB PO ONE (05:36)
[2018-11-07 05:47] LABS: Blood Morphology Comment NOT SEEN (NOT SEEN); Platelet Estimate ADEQ
[2018-11-07] MEDS: LEVOTHYROXINE SOD 0.05 MG TABLET PO SCH (06:07)
--- NOTE | 2018-11-07 06:48 | EKG ---
Test Date: 2018-11-06 Test Time: 18:31:31 Physician Coding Specialist: JALEESA MEASUREMENT RESULTS: Intervals: Rate: 99 SC: 136 QRSD: 82 QT: 328 QTc: 420 Sidell: P: 72 SC: 136 QRS: 27 T: 62 INTERPRETIVE STATEMENTS: Sinus rhythm with premature atrial complexes Low voltage QRS Borderline ECG Compared to ECG 06/13/2018 00:53:39 Atrial premature complex(es) now present Low QRS voltage now present Left-axis deviation no longer present Myocardial infarct finding no longer present Electronically Signed On 11-07-18 06:47:59 MANAGER PROCESS EXCELLENCE by Satinder Domingo
[2018-11-07] MEDS ORDERED: PNEUMOCOCCAL VACCINE 0.5 ML IMVAC ONE (08:00)
[2018-11-07] MEDS ORDERED: INFLUENZA VACCINE (for 3y+) 0.5 ML DOSE IMVAC ONE (08:00)
[2018-11-07] MEDS ORDERED: ASPIRIN 81 MG CHEWABLE TABLET PO SCH (09:00)
[2018-11-07] MEDS ORDERED: PIPER/TAZO/NS 3.375gm 3.375 GM/100 ML BAG IVPB SCH (09:00)
[2018-11-07] MEDS ORDERED: CLOPIDOGREL 75 MG TABLET PO SCH (09:00)
--- NOTE | 2018-11-07 10:01 | RAD REPORT ---
EXAM DESCRIPTION: CT - Chest Angio - 11/07/2018 9:34 am CLINICAL HISTORY: Chest pain. Lung mass COMPARISON: Head C Spine Cap W Con dated 06/12/2018; Chest Single View dated 11/06/2018 TECHNIQUE: CT angiogram of the pulmonary arteries was performed with MIP. All CT scans are performed using dose optimization technique as appropriate and may include automated exposure control or mA/KV adjustment according to patient size. FINDINGS: Prominent thyroid goiter is seen, diffuse. No evidence of pulmonary thromboembolism. No acute aortic finding demonstrated. Aortic atherosclerosis affects the arch. Diffuse COPD is present with airspace opacity in the lingula likely representing pneumonia. Irregular mass is again seen posterior to the right hilar structures measuring 3.5 x 3.5 cm, previously 3.4 x 3.3 cm, likely neoplastic. Mild adenopathy is seen in the mediastinum, including the pretracheal space measuring up to 15 mm, ri ght hilum measuring 14 mm, sub-carinal space measuring 21 mm. Trace left pleural fluid is present. Cholecystectomy clips are seen. IMPRESSION: No evidence of pulmonary thromboembolism. Moderate infiltrate is present in the lingula, compatible with developing pneumonia. Fractional increase in size in medial right lung base mass, likely malignant. Moderate mediastinal and right hilar lymphadenopathy. Diffuse thyroid goiter.
[2018-11-07] MEDS: FUROSEMIDE 40 MG TABLET PO SCH (10:12)
[2018-11-07] MEDS: ATORVASTATIN 20 MG TAB PO SCH (10:12)
[2018-11-07] MEDS: ENOXAPARIN 40 MG/0.4 ML SQ SCH (10:12)
[2018-11-07] MEDS: LISINOPRIL 10 MG TAB PO SCH (10:13)
[2018-11-07] MEDS ORDERED: Levofloxacin500mg IV 500 MG/100 ML BAG IV SCH (11:00)
[2018-11-07] MEDS: ACETAMINOPHEN 500 MG TAB PO PRN (12:47)
--- NOTE | 2018-11-07 13:03 | P.PN ---
Subjective Date of Service: 11/07/18 Chief Complaint: Shortness of breath/pneumonia Patient seen and examined at bedside with RN. Chart reviewed. Case discussed with pulmonology at this time. CT chest consistent with right medial lung mass. Patient is currently Ramses smoker for over 20 years smokes about 1 and half pack a day. Patient is scheduled for possible bronchoscopy with pulmonology tomorrow. Review of Systems 10-point ROS is otherwise unremarkable Physical Examination - Vital Signs Temperature: 97.8 F Blood Pressure: 133/61 Pulse: 82 Respirations: 20 Pulse Ox (%): 95 - Physical Exam General: Alert, In no apparent distress HEENT: Atraumatic, PERRLA, EOMI Neck: Supple, JVD not distended Respiratory: Normal air movement, Crackles/rales, Inspiratory wheezes Cardiovascular: Regular rate/rhythm, Normal S1 S2 Gastrointestinal: Normal bowel sounds, No tenderness Musculoskeletal: No tenderness Integumentary: No rashes Neurological: Normal speech, Normal tone, Normal affect Lymphatics: No axilla or inguinal lymphadenopathy - Studies Laboratory Data (last 24 hrs) 11/06/18 18:55: PT 12.9 H, INR 1.09, APTT 26.9 11/06/18 18:55: WBC 12.0 H, Hgb 14.1, Hct 43.0, Plt Count 197 11/06/18 18:55: Sodium 132 L, Potassium 3.8, BUN 30 H, Creatinine 0.90, Glucose 129 H, Magnesium 2.2, Total Bilirubin 1.1 H, AST 30, ALT 17, Alkaline Phosphatase 111, Lipase 87 Medications List Reviewed: Yes Assessment And Plan - Current Problems (Diagnosis) (1) Pneumonia Onset Date: 11/07/18 Current Visit: Yes Status: Acute Plan: CT and Xray of the Chest consistent with PNA -Switched to IV levaquin for now -Awaiting on Culture at this time -Pulmonology consulted. Awaiting [facility] Qualifiers: Pneumonia type: due to unspecified organism Laterality: unspecified laterality Lung location: unspecified part of lung Qualified Code(s): J18.9 - Pneumonia, unspecified organism (2) Lung mass Current Visit: No Status: Acute Plan: RIght Lung Medial Mass. Worse then Prior Imaging. Most likely malignancy -H/O Smoking for > 20 years -pulmonology has been consulted. Awaiting recommendations at this time -possible bronchoscopy to get a tissue biopsy. -will get Oncology involved once biopsy results (3) CHF (congestive heart failure) Onset Date: 04/09/15 Current Visit: No Status: Chronic Qualifiers: Heart failure type: unspecified Heart failure chronicity: chronic Qualified Code(s): I50.9 - Heart failure, unspecified (4) COPD (chronic obstructive pulmonary disease) Onset Date: 04/09/15 Current Visit: No Status: Chronic Qualifiers: COPD type: unspecified COPD Qualified Code(s): J44.9 - Chronic obstructive pulmonary disease, unspecified (5) Hypertension Onset Date: 06/13/18 Current Visit: No Status: Chronic Qualifiers: Hypertension type: essential hypertension Qualified Code(s): I10 - Essential (primary) hypertension - Plan Pending clinical improvement at this time. Awaiting pulmonology is recommendations. Possible bronchoscopy with tissue biopsy of the lung mass. Discharge Plan: Home Plan to discharge in: 48 Hours - Code Status/Comfort Care Code Status Assessed: Yes Critical Care: No
[2018-11-07] MEDS: Levofloxacin500mg IV 500 MG/100 ML BAG IV SCH (20:54)
[2018-11-07] MEDS: predniSONE 10 MG TAB PO SCH (20:54)
[2018-11-08] MEDS: IPRATROPIUM BROM 0.5MG/2.5ML NEB SCH ×6 (03:15→20:00)
[2018-11-08] MEDS: ALBUTEROL 2.5 MG/3 ML NEB SOL NEB SCH ×4 (03:15→20:00)
[2018-11-08 04:46] LABS: Potassium 4.1 mmol/L (3.5-5.1)
[2018-11-08] MEDS: LEVOTHYROXINE SOD 0.05 MG TABLET PO SCH (05:35)
--- NOTE | 2018-11-08 08:08 | P.CNS ---
Date of Consult: 11/08/18 Chief Complaint: Pneumonia and right-sided lung mass History of Present Illness: Patient is 78 years of age heavy smoker admitted with altered mental status. Apparently she was having some respiratory complaints chest congestion shortness of breath patient has left-sided pneumonia with a right-sided lung mass feeling better since admission denies any cough chest pain sputum or hemoptysis poor historian Allergies hydrocortisone Allergy (Verified 11/07/18 05:01) Nausea/Vomiting Home Medications: Furosemide 40 mg PO DAILY 11/07/18 Levothyroxine Sodium 50 mcg PO DAILY 11/07/18 Lisinopril 10 mg PO DAILY 11/07/18 Nitroglycerin [Nitrostat] 0.4 mg SL Q6H PRN 11/07/18 Simvastatin 80 mg PO BEDTIME 11/07/18 - Past Medical/Surgical History Diabetic: No -: CHF -: COPD -: DMII -: Hypothyroid -: Hyperlipidemia -: Asthma -: Choley -: Eye sx X3 -: Colon surgery -: Cardiac stent -: PAD stent bilaterally - Family History Father Notes: parkinsons Brother Medical History: Heart disease Notes: heart attack Mother Medical History: Heart disease - Social History Smoking Status: Current every day smoker Alcohol use: No CD- Drugs: No Caffeine use: Yes Place of Residence: Home Review of Systems 10-point ROS is otherwise unremarkable General: Weakness Respiratory: Shortness of Breath Physical Examination Temp Pulse Resp BP Pulse Ox 98 F 76 20 120/59 L 95 11/08/18 00:00 11/08/18 00:00 11/08/18 00:00 11/08/18 00:00 11/08/18 00:00 General: Alert, Oriented x3 HEENT: Atraumatic Neck: Supple Respiratory: Clear to auscultation bilaterally, Diminished Cardiovascular: No edema, Regular rate/rhythm, Normal S1 S2 Gastrointestinal: Normal bowel sounds, Soft and benign - Problems (1) Pneumonia Onset Date: 11/07/18 Current Visit: Yes Status: Acute Plan: Patient is 78 years of age admitted with the left-sided pneumonia cultures negative white count is back to normal patient is responding well to levofloxacin can be discharged home on 5 mg daily for 10 days Qualifiers: Pneumonia type: due to unspecified organism Laterality: unspecified laterality Lung location: unspecified part of lung Qualified Code(s): J18.9 - Pneumonia, unspecified organism (2) Hilar mass Onset Date: 06/13/18 Current Visit: No Status: Acute Plan: Patient has right-sided lung mass will need an outpatient bronchoscopy inform the patient the possibility of lung cancer advised to quit smoking discuss with the patient the risk of bronchoscopy bleeding infection lung collapse with plan to probably schedule it in 2 weeks I have ordered a daily room air pulse ox probably has underlying COPD and outpatient lung function test
--- NOTE | 2018-11-08 08:38 | ECHO ---
HEIGHT: 5 ft 9 in WEIGHT: 140 lb 6.4 oz DATE OF STUDY: 11/07/[address]: Louie Rojas MD 2-DIMENSIONAL: YES M.MODE: YES DOPPLER: YES COLOR FLOW: YES TDS: YES PORTABLE: NO DEFINITY: NO BUBBLE STUDY: NO DIAGNOSIS: DYSPNEA CARDIAC HISTORY: CATHERIZATION: YES SURGERY: NO PROSTHETIC VALVE: NO PACEMAKER: NO MEASUREMENTS (cm) DIASTOLIC (NORMALS) SYSTOLIC (NORMALS) IVSd 0.9 (0.6-1.2) LA Diam 3.1 (1.9-4.0) LVEF 75% LVIDd 4.0 (3.5-5.7) LVIDs 2.3 (2.0-3.5) %FS 43% LVPWd 0.9 (0.6-1.2) Ao Diam 2.9 (2.0-3.7) 2 DIMENSIONAL ASSESSMENT: RIGHT ATRIUM: NORMAL LEFT ATRIUM: NORMAL RIGHT VENTRICLE: NORMAL LEFT VENTRICLE: NORMAL TRICUSPID VALVE: NORMAL MITRAL VALVE: MITRAL ANNULAR CALCIFICATION PULMONIC VALVE: NORMAL AORTIC VALVE: NORMAL PERICARDIAL EFFUSION: NONE AORTIC ROOT: NORMAL LEFT VENTRICULAR WALL MOTION: NORMAL DOPPLER/COLOR FLOW: NORMAL COMMENTS: MITRAL ANNULAR CALCIFICATION. NORMAL LEFT VENTRICULAR SIZE AND FUNCTION. NO WALL MOTION ABNORMALITIES. NO EFFUSION. TECHNICALLY DIFFICULT STUDY. TECHNOLOGIST: DELFINO WILLOUGHBY
[2018-11-08] MEDS: ENOXAPARIN 40 MG/0.4 ML SQ SCH (10:05)
[2018-11-08] MEDS: ATORVASTATIN 20 MG TAB PO SCH (10:05)
[2018-11-08] MEDS: predniSONE 10 MG TAB PO SCH ×2 (10:06→21:02)
[2018-11-08] MEDS: FUROSEMIDE 40 MG TABLET PO SCH (10:08)
[2018-11-08] MEDS: LISINOPRIL 10 MG TAB PO SCH (10:08)
--- NOTE | 2018-11-08 12:14 | P.DS ---
Admission Date: 11/07/18 Discharge Date: 11/08/18 Disposition: ROUTINE DISCHARGE Discharge Condition: GOOD Reason for Admission: Pneumonia and right-sided lung mass - Problems (1) Pneumonia Onset Date: 11/07/18 Current Visit: Yes Status: Acute Qualifiers: Pneumonia type: due to unspecified organism Laterality: unspecified laterality Lung location: unspecified part of lung Qualified Code(s): J18.9 - Pneumonia, unspecified organism (2) Lung mass Current Visit: No Status: Acute (3) CHF (congestive heart failure) Onset Date: 04/09/15 Current Visit: No Status: Chronic Qualifiers: Heart failure type: unspecified Heart failure chronicity: chronic Qualified Code(s): I50.9 - Heart failure, unspecified (4) COPD (chronic obstructive pulmonary disease) Onset Date: 04/09/15 Current Visit: No Status: Chronic Qualifiers: COPD type: unspecified COPD Qualified Code(s): J44.9 - Chronic obstructive pulmonary disease, unspecified (5) Hypertension Onset Date: 06/13/18 Current Visit: No Status: Chronic Qualifiers: Hypertension type: essential hypertension Qualified Code(s): I10 - Essential (primary) hypertension Brief History of Present Illness: Patient is a 78-year-old female who presented to the emergency room with shortness of breath. Patient has been coughing and congested along with fever. Patient states she has not been feeling well for the last few days. In the emergency room, she had labs which revealed hyponatremia. Patient also had a chest x-ray which revealed haziness in the lateral left lung field suspicious for pneumonia. Patient was also found to have a 3.5cm mass in the right lung. This was seen at the months ago when patient was in the hospital after falling in May of 2018. Patient's best to follow up with her spiritual care coordinator. However , this has not had an. The mass is not really changed in size. Will probably get another CT of the chest in the morning to further evaluate this. Patient will also need an echocardiogram as patient has a history of diastolic heart failure. At this time will admit patient to the hospital for IV antibiotic therapy along with treatment of COPD exacerbation. Hospital Course: Overall during the hospital stay patient remained stable Patient was initially admitted to the hospital for pneumonia. CT scan of the chest was done which was consistent with a right hilar lung mass as well along with pneumonia. Pulmonology was consulted. Patient initially was started on IV Zosyn and was switched over to IV Levaquin while here in the hospital. Did overall well. Pneumonia had marked improvement. At that time pulmonology recommended the patient can be discharged home to continue on her COPD medication and p.o. Levaquin 500 for total of 10 days. Patient's lung mass will be worked up outpatient by pulmonology. Pulmonology recommendation was outpatient bronchoscopy once pneumonia has resolved. Patient was asked to follow up with her spiritual care coordinator in about 1-2 days post discharge and was also educated extensively on smoking cessation and proper followup for her lung mass. Patient demonstrate understanding and thus was discharged home under stable condition. Vital Signs/Physical Exam: Temp Pulse Resp BP Pulse Ox 97.6 F 75 18 115/58 L 97 11/08/18 08:00 11/08/18 10:08 11/08/18 08:00 11/08/18 10:08 11/08/18 08:00 General: Alert, In no apparent distress HEENT: Atraumatic, PERRLA, EOMI Neck: Supple, JVD not distended Respiratory: Clear to auscultation bilaterally, Normal air movement Cardiovascular: Regular rate/rhythm, Normal S1 S2 Gastrointestinal: Normal bowel sounds, No tenderness Musculoskeletal: No tenderness Integumentary: No rashes Neurological: Normal speech, Normal tone, Normal affect Lymphatics: No axilla or inguinal lymphadenopathy Laboratory Data at Discharge: WBC 9.4 K/uL (4.3-10.9) D 11/07/18 04:16 Hgb 12.6 g/dL (12.0-15.0) 11/07/18 04:16 Hct 38.5 % (36.0-45.0) 11/07/18 04:16 Plt Count 178 K/uL (152-406) 11/07/18 04:16 PT 12.9 SECONDS (9.5-12.5) H 11/06/18 18:55 INR 1.09 11/06/18 18:55 APTT 26.9 SECONDS (24.3-36.9) 11/06/18 18:55 Sodium 136 mmol/L (136-145) 11/08/18 04:05 Potassium 4.1 mmol/L (3.5-5.1) 11/08/18 04:05 BUN 26 mg/dL (7-18) H 11/08/18 04:05 Creatinine 0.97 mg/dL (0.55-1.3) 11/08/18 04:05 Glucose 240 mg/dL (74-106) H 11/08/18 04:05 Phosphorus 2.5 mg/dL (2.5-4.9) 11/07/18 04:16 Magnesium 2.0 mg/dL (1.8-2.4) 11/07/18 04:16 Total Bilirubin 0.6 mg/dL (0.2-1.0) 11/07/18 04:16 AST 26 U/L (15-37) 11/07/18 04:16 ALT 16 U/L (12-78) 11/07/18 04:16 Alkaline Phosphatase 97 U/L (45-117) 11/07/18 04:16 Lipase 87 U/L (73-393) 11/06/18 18:55 Home Medications: Furosemide 40 mg PO DAILY 11/07/18 Levothyroxine Sodium 50 mcg PO DAILY 11/07/18 Lisinopril 10 mg PO DAILY 11/07/18 Nitroglycerin [Nitrostat*] 0.4 mg SL Q6H PRN 11/07/18 Simvastatin 80 mg PO BEDTIME 11/07/18 levoFLOXacin [Levaquin] 500 mg PO DAILY #10 tab 11/08/18 predniSONE [Deltasone*] 10 mg PO BID #20 tab 11/08/18 New Medications: levoFLOXacin [Levaquin] 500 mg PO DAILY #10 tab predniSONE [Deltasone*] 10 mg PO BID #20 tab Diet: Regular Activity: Ad micheal Followup: Abhijit Black MD [ACTIVE - CAN ADMIT] - 1 Week
[2018-11-08] MEDS: Levofloxacin500mg IV 500 MG/100 ML BAG IV SCH (21:02)
[2018-11-09] MEDS: ALBUTEROL 2.5 MG/3 ML NEB SOL NEB SCH ×2 (02:00→07:50)
[2018-11-09] MEDS: IPRATROPIUM BROM 0.5MG/2.5ML NEB SCH ×3 (04:00→07:50)
[2018-11-09 04:31] VITALS: O2SAT 93
[2018-11-09] MEDS: LEVOTHYROXINE SOD 0.05 MG TABLET PO SCH (05:44)
[2018-11-09 09:49] VITALS: BP 109/53; TEMP 97.8
[2018-11-09] MEDS: FUROSEMIDE 40 MG TABLET PO SCH (09:54)
[2018-11-09] MEDS: ATORVASTATIN 20 MG TAB PO SCH (09:54)
[2018-11-09] MEDS: LISINOPRIL 10 MG TAB PO SCH (09:55)
[2018-11-09] MEDS: predniSONE 10 MG TAB PO SCH (09:55)
[2018-11-09] MEDS: ACETAMINOPHEN 500 MG TAB PO PRN (09:59)
[2018-11-09] MEDS: ENOXAPARIN 40 MG/0.4 ML SQ SCH (10:00)
--- NOTE | 2018-11-09 12:02 | P.PN ---
Subjective Date of Service: 11/09/18 Chief Complaint: Pneumonia and right-sided lung mass Patient seen and examined at bedside with RN. Chart reviewed. Case discussed with pulmonology at this time. Patient doing well overall. Was scheduled to go home yesterday however oxygen was not delivered this discharge was held. Oxygen is not delivered and will be discharged home today. Review of Systems 10-point ROS is otherwise unremarkable Physical Examination - Vital Signs Temperature: 97.8 F Blood Pressure: 109/53 Pulse: 100 Respirations: 28 Pulse Ox (%): 96 - Physical Exam General: Alert, In no apparent distress HEENT: Atraumatic, PERRLA, EOMI Neck: Supple, JVD not distended Respiratory: Clear to auscultation bilaterally, Normal air movement Cardiovascular: Regular rate/rhythm, Normal S1 S2 Gastrointestinal: Normal bowel sounds, No tenderness Musculoskeletal: No tenderness Integumentary: No rashes Neurological: Normal speech, Normal tone, Normal affect Lymphatics: No axilla or inguinal lymphadenopathy - Studies Medications List Reviewed: Yes Assessment And Plan - Current Problems (Diagnosis) (1) Pneumonia Onset Date: 11/07/18 Current Visit: Yes Status: Acute Qualifiers: Pneumonia type: due to unspecified organism Laterality: unspecified laterality Lung location: unspecified part of lung Qualified Code(s): J18.9 - Pneumonia, unspecified organism (2) Lung mass Current Visit: No Status: Acute (3) CHF (congestive heart failure) Onset Date: 04/09/15 Current Visit: No Status: Chronic Qualifiers: Heart failure type: unspecified Heart failure chronicity: chronic Qualified Code(s): I50.9 - Heart failure, unspecified (4) COPD (chronic obstructive pulmonary disease) Onset Date: 04/09/15 Current Visit: No Status: Chronic Qualifiers: COPD type: unspecified COPD Qualified Code(s): J44.9 - Chronic obstructive pulmonary disease, unspecified (5) Hypertension Onset Date: 06/13/18 Current Visit: No Status: Chronic Qualifiers: Hypertension type: essential hypertension Qualified Code(s): I10 - Essential (primary) hypertension - Plan Patient is not cleared for discharge is home oxygenation has been arranged for. Patient to continue taking antibiotics at home and follow up with pulmonology for bronchoscopy outpatient to biopsy the lung mass. Discharge Plan: Home Plan to discharge in: 48 Hours - Code Status/Comfort Care Code Status Assessed: Yes Critical Care: No
== END 2018-11-09 12:56 | disposition home or self-care (01) | DRG 194 ==
LOC: ER 18:27 → ERHOLD 22:57 → 4TH 11-07 00:14 → OBSVTOIN 11-07 14:48
PROVIDERS: ADMIT Hospitalist; ATTEND Hospitalist
DX: J18.9 Pneumonia, unspecified organism (principal); J44.0 Chronic obstructive pulmonary disease with (acute) lower respiratory infection; E87.1 Hypo-osmolality and hyponatremia; J44.1 Chronic obstructive pulmonary disease with (acute) exacerbation; I11.0 Hypertensive heart disease with heart failure; I50.9 Heart failure, unspecified; R91.8 Other nonspecific abnormal finding of lung field; E03.9 Hypothyroidism, unspecified; Z23 Encounter for immunization
CPT/HCPCS: 36415; 71045; 71275; 80048; 80053; 80076; 82550; 82553; 83036; 83605; 83690; 83735; 83880; 84100; 84484; 85025; 85379; 85610; 85730; 87040; 90670; 93005; 93306; 94640; 96361; 96365; 96375; 99285; G0009; G0378; J0696; J1650; J2543; J2930; J7030; J7512; Q9967

== ENCOUNTER 2019-02-07 16:44 | Emergency (ER) | payer OTHER ==
[2019-02-07] MEDS ORDERED: ALBUTEROL 2.5 MG/3 ML NEB SOL ONE (17:26)
[2019-02-07] MEDS ORDERED: IPRATROPIUM BROM 0.5MG/2.5ML ONE (17:27)
--- NOTE | 2019-02-07 17:49 | EKG ---
Test Date: 2019-02-07 Test Time: 17:01:28 [employer]: EVGENY MEASUREMENT RESULTS: Intervals: Rate: 70 ND: 156 QRSD: 84 QT: 430 QTc: 464 [place]: P: 76 ND: 156 QRS: 15 T: 61 INTERPRETIVE STATEMENTS: Normal sinus rhythm Possible Anterior infarct, age undetermined Abnormal ECG Compared to ECG 11/06/2018 18:31:31 Myocardial infarct finding now present Atrial premature complex(es) no longer present Electronically Signed On 02-07-19 17:48:27 CDT by Satinder Domingo
[2019-02-07 17:53] LABS: Absolute Lymphocytes (CBC) 1.9 K/uL (0.7-4.9); Absolute Monocytes 0.4 K/uL (0.1-1.3); Absolute Neutrophil 3.2 K/uL (1.8-8.0); Basophils % 0.5 % (0-1.3); Eosinophils % 1.7 % (0-4.4); Hematocrit 42.7 % (36.0-45.0); Lymphocytes % 32.9 % (15.3-44.8); MPV 8.3 fL (7.6-11.3); Monocytes % 7.9 % (3.3-12.3); RBC Red Blood Cell Count 4.51 M/uL (3.86-4.86)
--- NOTE | 2019-02-07 17:59 | RAD REPORT ---
EXAM DESCRIPTION: [facility] Single View02/07/2019 5:31 pm CLINICAL HISTORY: Chest pain COMPARISON: October 2018 FINDINGS: The lungs are hyperaerated. Right lung mass is without obvious change. Left lung opacities have resolved. Heart is normal size
[2019-02-07 18:01] LABS: Urine Appearance CLEAR; Urine Bilirubin NEGATIVE (NEG); Urine Blood NEGATIVE (NEG); Urine Color YELLOW; Urine Glucose NEGATIVE (NEG); Urine Protein NEGATIVE (NEG); Urine Specific Gravity <=1.005 (1.005-1.030); Urine Urobilinogen 0.2 mg/dL (0.2-1.0); Urine pH 6.5 (5.0-7.0)
--- NOTE | 2019-02-07 18:01 | RAD REPORT ---
EXAM DESCRIPTION: CT - Head Brain Wo Cont - 02/07/2019 5:52 pm CLINICAL HISTORY: Alteration of awareness/confusion COMPARISON: May 2018 TECHNIQUE: Computed axial tomography of the head was obtained. IV contrast was not requested. All CT scans are performed using dose optimization technique as appropriate and may include automated exposure control or mA/KV adjustment according to patient size. FINDINGS: An intracranial bleed is not seen . The ventricles are normal in caliber. No extra-axial fluid collection is noted. Moderate low-density areas within periventricular, deep and subcortical white matter likely represent ischemic changes secondary to small vessel disease. Fluid within the sinuses/ mastoids is not seen. IMPRESSION: No acute intracranial abnormality is seen. If patient's symptoms persist MRI of the bra in would be recommended.
[2019-02-07 18:02] LABS: Urine Microscopic Reflex ORDER UMIC
[2019-02-07 18:04] LABS: Albumin 3.7 g/dL (3.4-5.0); Bilirubin Direct 0.1 mg/dL (0-0.2); Bilirubin Total 0.6 mg/dL (0.2-1.0); Magnesium 2.2 mg/dL (1.8-2.4); Protein, Total 7.5 g/dL (6.4-8.2)
[2019-02-07 18:11] LABS: Urine Bacteria <20 /HPF (<20); Urine Culture Reflex Order REFLEXED; Urine Mucus 2+ /HPF (NONE SEEN); Urine RBC <5 /HPF (NONE SEEN)
[2019-02-07 18:11] LABS: Urine Blood NEGATIVE (NEG); Urine Glucose NEGATIVE (NEG); Urine Protein NEGATIVE (NEG); Urine pH 6.5 (5.0-7.0)
--- NOTE | 2019-02-07 18:15 | EDPHYS ---
Physician Documentation [facility] Name: Radha Limon Age: 78 yrs Sex: Female : 1940 Arrival Date: 02/07/2019 Time: 16:46 Bed 6 Private MD: ED Physician Taye Addison HPI: 02/07 17:01 This 78 yrs old Female presents to ER via EMS with complaints of Altered jr8 Mental Status. 17:01 The patient presents with confusion. Onset: The symptoms/episode began/occurred jr8 suddenly, just prior to arrival. Possible causes: unknown. Associated signs and symptoms: Pertinent positives: abdominal pain, confusion, dizziness, shortness of breath, Pertinent negatives: abdominal pain, ataxia, blurred vision, chest pain, combativeness, diarrhea, headache, nausea, palpitations. Current symptoms: In the emergency department the patient's symptoms have resolved, the patient is alert and fully oriented, has normal speech, has normal responsiveness. Patient's baseline: Neuro: alert and fully oriented, Motor: no deficits, Ambulation: walks without assistance, Speech: normal. The patient has not recently seen a physician. Per patient's daughter, the patient became disoriented just EXTERMINATOR TERMITE. She took her diaper off and was talking about walking through a maze. Her daughter allowed her to rest with her home oxygen on (patient had not been wearing it). After resting while awaiting EMS patient's symptoms improved. Patient's daughter not at bedside at this time. Patient denies all complaints except feeling fatigued. Historical: - Allergies: 16:51 Hydrocortisone; ss - Home Meds: 16:51 aspirin 81 mg Oral chew 1 tab once daily [Active]; levothyroxine 50 mcg tab 1 tab once ss daily [Active]; lisinopril 10 mg Oral tab 1 tab once daily [Active]; metformin 500 mg Oral tab 1 tab 2 times per day [Active]; nitroglycerin 0.4 mg SL subl 1 tab [Active]; simvastatin 20 mg Oral tab 1 tab once daily [Active]; ipratropium-albuterol 0.5 mg-3 mg(2.5 mg base)/3 mL Inhl nebu 3 mL 4 times per day [Active]; - PMHx: 16:51 COPD; Diabetes - NIDDM; Hyperlipidemia; Hypothyroidism; CHF; ss - Immunization history:: Adult Immunizations up to date. - Social history:: Smoking status: Patient uses tobacco products, 3 cigarettes/day . - Ebola Screening: : Patient denies exposure to infectious person Patient denies travel to an Ebola-affected area in the 21 days before illness onset. ROS: 17:01 ENT: Negative for injury, pain, and discharge, Cardiovascular: Negative for chest pain, jr8 palpitations, and edema, Respiratory: Negative for shortness of breath worse than baseline COPD, cough, wheezing, and pleuritic chest pain, Abdomen/GI: Negative for abdominal pain, nausea, vomiting, diarrhea, and constipation, : Negative for injury, bleeding, discharge, and swelling, Skin: Negative for injury, rash, and discoloration, Neuro: Negative for headache, weakness, numbness, tingling, and seizure. 17:01 Constitutional: Positive for fatigue, Negative for body aches, chills, fever, malaise, poor PO intake, weight loss. Exam: 17:01 ECG was reviewed by the Attending Physician. jr8 17:06 Constitutional: This is a well developed, well nourished patient who is awake, alert, jr8 and in no acute distress. ENT: Nares patent. No nasal discharge, no septal abnormalities noted. Tympanic membranes are normal and external auditory canals are clear. Oropharynx with no redness, swelling, or masses, exudates, or evidence of obstruction, uvula midline. Mucous membranes moist. Neck: Trachea midline, no thyromegaly or masses palpated, and no cervical lymphadenopathy. Supple, full range of motion without nuchal rigidity, or vertebral point tenderness. No Meningismus. Cardiovascular: Regular rate and rhythm with a normal S1 and S2. No gallops, murmurs, or rubs. Normal PMI, no JVD. No pulse deficits. Abdomen/GI: Soft, non-tender, with normal bowel sounds. No distension or tympany. No guarding or rebound. No evidence of tenderness throughout. Back: No spinal tenderness. No costovertebral tenderness. Full range of motion. Skin: Warm, dry with normal turgor. Normal color with no rashes, no lesions, and no evidence of cellulitis. MS/ Extremity: Pulses equal, no cyanosis. Neurovascular intact. Full, normal range of motion. 17:06 Respiratory: mild respiratory distress is noted, Respirations: no acute changes, labored breathing, that is mild, pursed lip breathing, that is mild, tachypnea, that is mild, Breath sounds: wheezing: inspiratory expiratory that is mild. 17:06 Neuro: Orientation: to person, place \T\ time. Not oriented to time, Mentation: is normal, Memory: is normal, Cranial nerves: grossly normal, Motor: is normal, Sensation: is normal, Deep tendon reflexes are normal. Vital Signs: 16:51 BP 158 / 75; Pulse 79; Resp 16; Pulse Ox 89% on R/A; Weight 63.05 kg; Height 5 ft. 7 ss in. (170.18 cm); Pain 0/10; 16:53 Pulse Ox 99% on 2 lpm NC; aa5 16:53 Temp 98.4(O); aa5 17:57 BP 169 / 94; Pulse 78; Resp 18 S; Pulse Ox 96% on 2 lpm NC; aa5 18:29 BP 154 / 79; Pulse 80; Resp 16 S; Pulse Ox 99% on 2 lpm NC; aa5 16:51 Body Mass Index 21.77 (63.05 kg, 170.18 cm) ss MDM: 16:51 Patient medically screened. jr8 18:12 Data reviewed: vital signs, nurses notes, lab test result(s), EKG, radiologic studies, jr CT scan, plain films. Data interpreted: Pulse oximetry: on 2L(s) per nasal canula, is 96 %. Interpretation: normal. Counseling: I had a detailed discussion with the patient and/or guardian regarding: the historical points, exam findings, and any diagnostic results supporting the discharge/admit diagnosis, lab results, radiology results, the need for outpatient follow up, a family practitioner, to return to the emergency department if symptoms worsen or persist or if there are any questions or concerns that arise at home. Response to treatment: the patient's symptoms have resolved after treatment. ED course: Based on story it sounds like patient acutely became altered secondary to not having her home oxygen on. Patient has had complete resolution of symptoms since oxygen was administered. Patient without any complaint currently. VS, labs, and images unremarkable. Will send home with return precautions . 02/07 17:11 Order name: Basic Metabolic Panel; Complete Time: 18:09 jr8 02/07 17:11 Order name: CBC with Diff; Complete Time: 18:09 jr8 02/07 17:11 Order name: LFT's; Complete Time: 18:09 8 02/07 17:11 Order name: Magnesium; Complete Time: 18:09 8 02/07 17:11 Order name: UA; Complete Time: 18:14 8 02/07 17:31 Order name: Urine Dipstick--Ancillary (enter results); Complete Time: 18:14 bd 02/07 17:11 Order name: XRAY Chest (1 view); Complete Time: 18:09 8 02/07 17:11 Order name: EKG; Complete Time: 17:12 8 02/07 17:11 Order name: Cardiac monitoring; Complete Time: 17:23 [facility] 02/07 17:11 Order name: EKG - Nurse/Tech; Complete Time: 17:55 [facility] 02/07 17:11 Order name: CT Head Brain wo Cont; Complete Time: 18:09 [facility] 02/07 18:04 Order name: Urine Microscopic Only; Complete Time: 18:14 EDMS 02/07 18:12 Order name: Urine Culture [facility] 02/07 17:11 Order name: IV Saline Lock; Complete Time: 17:37 8 02/07 17:11 Order name: Labs collected and sent; Complete Time: 17:37 02/07 17:11 Order name: O2 Per Protocol; Complete Time: 17:23 [facility] 02/07 17:11 Order name: O2 Sat Monitoring; Complete Time: 17:23 8 02/07 17:11 Order name: Blood Glucose Level; Complete Time: 17:37 jr8 EC:01 Rate is 70 beats/min. Rhythm is regular. QRS [place] is Normal. IN interval is normal. QRS jr8 interval is normal. QT interval is normal. No ST changes noted. Clinical impression: Normal ECG. Interpreted by me. Reviewed by me. Administered Medications: 17:23 Drug: Albuterol - atroVENT (3:1) (2.5 mg - 0.5 mg) 3 ml Route: Nebulizer; aa5 17:40 Follow up: Response: No adverse reaction aa5 Point of Care Testing: Blood Glucose: 17:25 Blood Glucose: 92 mg/dL; aa5 Ranges: Critical Glucose Levels:Adult <50 mg/dl or >400 mg/dl <40 mg/dl or >180 mg/dl Disposition: 18:55 Co-signature as Attending Physician, Taye Addison MD. rn Disposition: 02/07/19 18:14 Discharged to Home. Impression: Altered mental status, unspecified. - Condition is Stable. - Discharge Instructions: Confusion, Hypoxemia. - Medication Reconciliation Form, Thank You Letter, Antibiotic Education, Prescription Opioid Use form. - Follow up: Private Physician; When: 1 - 2 days; Reason: Recheck today's complaints, Continuance of care, Re-evaluation by your physician. - Problem is new. - Symptoms have improved. Signatures: Dispatcher [employer] EDMS Taye Addison MD MD rn Calderon, Audri RN RN aa5 Katherin Galeas RN RN Owen Menjivar PA PA jr8 Corrections: (The following items were deleted from the chart) 18:53 18:14 02/07/2019 18:14 Discharged to Home. Impression: Altered mental status, aa5 unspecified. Condition is Stable. Forms are Medication Reconciliation Form, Thank You Letter, Antibiotic Education, Prescription Opioid Use. Follow up: Private Physician; When: 1 - 2 days; Reason: Recheck today's complaints, Continuance of care, Re-evaluation by your physician. Problem is new. Symptoms have improved. jr8
--- NOTE | 2019-02-07 18:15 | ER ---
Nurse's Notes [facility] Name: Radha Limon Age: 78 yrs Sex: Female : 1940 Arrival Date: 02/07/2019 Time: 16:46 Bed 6 Private MD: Diagnosis: Altered mental status, unspecified Presentation: 02/07 16:47 Presenting complaint: EMS states: Daughter told EMS that approximately 2 hours ago, ss patient began hallucinating. Pt is on continuous home O2. On EMS arrival, it was noted that O2 hose seemed to be malfunctioning as it was pinched, but did not place her back on O2 at her O2 was 94-95% on RA. Pt currently A\\T\\O x3 on arrival to ED. O2 89% initially. Placed back on O2 2L VIA NC. Transition of care: patient was not received from another setting of care. Onset of symptoms was February 07, 2019. Risk Assessment: Do you want to hurt yourself or someone else? Patient reports no desire to harm self or others. Initial Sepsis Screen: Does the patient meet any 2 criteria? No. Patient's initial sepsis screen is negative. Does the patient have a suspected source of infection? No. Patient's initial sepsis screen is negative. Care prior to arrival: None. 16:47 Method Of Arrival: EMS: [facility] 16:47 Acuity: CRISTHIAN 3 ss Historical: - Allergies: 16:51 Hydrocortisone; ss - Home Meds: 16:51 aspirin 81 mg Oral chew 1 tab once daily [Active]; levothyroxine 50 mcg tab 1 tab once ss daily [Active]; lisinopril 10 mg Oral tab 1 tab once daily [Active]; metformin 500 mg Oral tab 1 tab 2 times per day [Active]; nitroglycerin 0.4 mg SL subl 1 tab [Active]; simvastatin 20 mg Oral tab 1 tab once daily [Active]; ipratropium-albuterol 0.5 mg-3 mg(2.5 mg base)/3 mL Inhl nebu 3 mL 4 times per day [Active]; - PMHx: 16:51 COPD; Diabetes - NIDDM; Hyperlipidemia; Hypothyroidism; CHF; ss - Immunization history:: Adult Immunizations up to date. - Social history:: Smoking status: Patient uses tobacco products, 3 cigarettes/day . - Ebola Screening: : Patient denies exposure to infectious person Patient denies travel to an Ebola-affected area in the 21 days before illness onset. Screenin:50 Abuse screen: Denies threats or abuse. Nutritional screening: No deficits noted. aa5 Tuberculosis screening: No symptoms or risk factors identified. Fall Risk None identified. Assessment: 16:50 General: Appears comfortable, Behavior is calm, cooperative. Pain: Denies pain. Neuro: aa5 Level of Consciousness is awake, alert, obeys commands, Oriented to person, place, time, situation, Assistant Food Service Manager are equal bilaterally Moves all extremities. Speech is normal, Facial symmetry appears normal, Pupils are PERRLA. Cardiovascular: Heart tones S1 S2 present 1+ non-pitting edema noted to bilateral lower extremities Rhythm is regular. Respiratory: Airway is patent Respiratory effort is even, unlabored, Respiratory pattern is regular, symmetrical, Breath sounds with wheezes bilaterally. GI: Abdomen is round Bowel sounds present X 4 quads. Abd is soft and non tender X 4 quads. : No signs and/or symptoms were reported regarding the genitourinary system. EENT: No signs and/or symptoms were reported regarding the EENT system. Derm: Skin is pink, warm \\T\\ dry. Musculoskeletal: Range of motion: intact in all extremities. 17:40 Reassessment: PT to CT via stretcher . aa5 17:56 Reassessment: Patient is alert, oriented x 3, equal unlabored respirations, skin aa5 warm/dry/pink. Pt back from CT scan . 18:30 Reassessment: Patient is alert, oriented x 3, equal unlabored respirations, skin aa5 warm/dry/pink. Patient denies pain at this time. Awaiting EMS for d/c home. Pt states "I called my daughter to let her know I was being discharged" . 18:45 Reassessment: Patient is alert, oriented x 3, equal unlabored respirations, skin aa5 warm/dry/pink. Vital Signs: 16:51 BP 158 / 75; Pulse 79; Resp 16; Pulse Ox 89% on R/A; Weight 63.05 kg; Height 5 ft. 7 ss in. (170.18 cm); Pain 0/10; 16:53 Pulse Ox 99% on 2 lpm NC; aa5 16:53 Temp 98.4(O); aa5 17:57 BP 169 / 94; Pulse 78; Resp 18 S; Pulse Ox 96% on 2 lpm NC; aa5 18:29 BP 154 / 79; Pulse 80; Resp 16 S; Pulse Ox 99% on 2 lpm NC; aa5 16:51 Body Mass Index 21.77 (63.05 kg, 170.18 cm) ED Course: 16:46 Patient arrived in ED. aa5 16:47 Kelin Figueroa, RN is Primary Nurse. aa5 16:47 Arm band placed on. aa5 16:47 Pulse ox on. NIBP on. Pt refused cardiac monitoring at this time. aa5 16:47 Patient has correct armband on for positive identification. aa5 16:49 Triage completed. 16:51 Owen Mantilla PA is PHCP. jr8 16:51 Taye Addison MD is Attending Physician. jr8 17:21 EKG done, by orthopaedic technologist. reviewed by Owen HARDEN. 3 17:[address] via stretcher. nj 17:25 Initial lab(s) drawn, by id, sent to lab. Inserted saline lock: 20 gauge in left aa5 forearm, using aseptic technique. Blood collected. 17:31 XRAY Chest (1 view) In Process Unspecified. EDMS 17:39 environmental monitoring technician on. Pt agreed to cardiac monitoring at this time. aa5 17:51 CT completed. Patient tolerated procedure well. Patient moved back from AK. nj 17:52 CT Head Brain wo Cont In Process Unspecified. EDMS 18:45 No provider procedures requiring assistance completed. IV discontinued, intact, aa5 bleeding controlled, No redness/swelling at site. Pressure dressing applied. Administered Medications: 17:23 Drug: Albuterol - atroVENT (3:1) (2.5 mg - 0.5 mg) 3 ml Route: Nebulizer; aa5 17:40 Follow up: Response: No adverse reaction aa5 Point of Care Testing: Blood Glucose: 17:25 Blood Glucose: 92 mg/dL; aa5 Ranges: Outcome: 18:14 Discharge ordered by . jrCrystal 18:50 Discharged to home via [facility] aa5 18:50 Condition: stable 18:50 Discharge instructions given to patient, Instructed on discharge instructions, follow up and referral plans. Demonstrated understanding of instructions, follow-up care. 18:53 Patient left the ED. aa5 Signatures: Dispatcher [employer] EDKelin Yung RN RN aa5 Katherin Galeas RN RN ss Roszak, Josh, PA PA jr8 Bandar Harrison Shakira 3 Corrections: (The following items were deleted from the chart) 16:53 16:47 BP 189 / 70; Pulse 70bpm; Resp 18bpm; Spontaneous; Pulse Ox 89% RA; aa5 aa5 16:53 16:50 Pulse Ox 99% 2 lpm Nasal Cannula; aa5 aa5 17:47 16:50 Cardiovascular: Heart tones S1 S2 present Rhythm is regular aa5 aa5
[2019-02-07 19:00] VITALS: TEMP 98.4
[2019-02-07 19:03] VITALS: BP 154/79; O2SAT 99
== END 2019-02-07 18:53 | disposition home or self-care (01) ==
LOC: ER 16:44
DX: R41.82 Altered mental status, unspecified (principal); R94.31 Abnormal electrocardiogram [ECG] [EKG]; E11.9 Type 2 diabetes mellitus without complications; E03.9 Hypothyroidism, unspecified; E78.5 Hyperlipidemia, unspecified; J44.9 Chronic obstructive pulmonary disease, unspecified; Z79.82 Long term (current) use of aspirin; Z79.84 Long term (current) use of oral hypoglycemic drugs; F17.210 Nicotine dependence, cigarettes, uncomplicated; Z79.899 Other long term (current) drug therapy
CPT/HCPCS: 36415; 70450; 71045; 80048; 80076; 81003; 81015; 82962; 83735; 85025; 87086; 87088; 93005; 94640; 99285

== ENCOUNTER 2019-09-15 02:14 | Inpatient (IN) | payer OTHER ==
[2019-09-15 02:44] LABS: Absolute Lymphocytes (CBC) 1.4 K/uL (0.7-4.9); Basophils % 0.5 % (0-1.3); Hematocrit 47.7 % (36.0-45.0); Lymphocytes % 26.1 % (15.3-44.8); MPV 7.7 fL (7.6-11.3); RBC Red Blood Cell Count 4.92 M/uL (3.86-4.86)
[2019-09-15] MEDS ORDERED: METHYLPREDNISOLONE 125 MG INJ ONE (02:45)
[2019-09-15] MEDS ORDERED: Levofloxacin500mg IV 500 MG/100 ML BAG IV ONE (02:46)
[2019-09-15] MEDS ORDERED: IPRATROPIUM BROM 0.5MG/2.5ML ONE (02:46)
[2019-09-15] MEDS ORDERED: NITROGLYCERIN 1 GM PKT TD ONE (02:46)
[2019-09-15] MEDS ORDERED: LEVALBUTEROL 1.25 MG/3 ML NEB ONE (02:46)
[2019-09-15] MEDS ORDERED: FUROSEMIDE 40 MG/4 ML VIAL ONE (02:46)
--- NOTE | 2019-09-15 02:50 | ER ---
Nurse's Notes [facility] Name: Radha Limon Age: 79 yrs Sex: Female : 1940 Arrival Date: 09/15/2019 Time: 02:21 Bed 3 Private MD: Diagnosis: Dyspnea;Hypoxemia;Acute upper respiratory infection, unspecified;Tobacco abuse counseling;Tobacco use;Chronic obstructive pulmonary disease with (acute) exacerbation;Respiratory failure, unspecified with hypercapnia;Essential (primary) hypertension Presentation: 09/15 02:12 Presenting complaint: EMS states: that they were toned for pt having shortness of fc breath. Upon their arrival pt had sats of 20% and was wheezing bilaterally. Transition of care: patient was not received from another setting of care. Onset of symptoms was September 12, 2019. Risk Assessment: Do you want to hurt yourself or someone else? Patient reports no desire to harm self or others. Initial Sepsis Screen: Does the patient meet any 2 criteria? RR > 20 per min. HR > 90 bpm. Yes Does the patient have a suspected source of infection? No. Patient's initial sepsis screen is negative. Care prior to arrival: Glucose check: 131 Oxygen administered. via a non-rebreather mask. 02:12 Method Of Arrival: EMS: [facility] 02:12 Acuity: CRISTHIAN 2 fc Triage Assessment: 02:20 Respiratory: Onset: The symptoms/episode began/occurred today, the patient has severe jd3 shortness of breath. Historical: - Allergies: 03:10 Hydrocortisone; fc - PMHx: 03:10 COPD; Emphysema; Hypothyroidism; Hypertension; Diabetes - NIDDM; Pneumonia; CHF; fc Hyperlipidemia; - Immunization history:: Last tetanus immunization: unknown, Flu vaccine is up to date. - Social history:: Smoking status: Patient uses tobacco products, smokes two packs cigarettes per day. Patient/guardian denies using alcohol, street drugs. - Ebola Screening: : Patient negative for fever greater than or equal to 101.5 degrees Fahrenheit, and additional compatible Ebola Virus Disease symptoms Patient denies exposure to infectious person Patient denies travel to an Ebola-affected area in the 21 days before illness onset. - Family history:: not pertinent. Screenin:12 Abuse screen: Denies threats or abuse. Nutritional screening: No deficits noted. fc Tuberculosis screening: No symptoms or risk factors identified. Fall Risk None identified. Assessment: 02:25 General: Appears distressed, uncomfortable, Behavior is cooperative, appropriate for jd3 age, restless. Pain: Denies pain. Neuro: Level of Consciousness is awake, alert, obeys commands, Oriented to person, place, time, situation. Cardiovascular: Heart tones S1 S2 present Capillary refill < 3 seconds Patient's skin is warm and dry. Rhythm is regular. Respiratory: Reports shortness of breath at rest labored breathing Airway is patent Respiratory effort is labored, gasping, shallow, Respiratory pattern is symmetrical, hyperventilation tachypnea Breath sounds are diminished bilaterally. GI: No signs and/or symptoms were reported involving the gastrointestinal system. Patient currently denies diarrhea, nausea, vomiting. : No signs and/or symptoms were reported regarding the genitourinary system. EENT: No signs and/or symptoms were reported regarding the EENT system. Derm: Skin is intact, Skin is dry, Skin is normal, Skin temperature is warm. Musculoskeletal: Circulation, motion, and sensation intact. Range of motion: intact in all extremities. 03:03 Reassessment: Patient appears in no apparent distress at this time. Patient and/or jd3 family updated on plan of care and expected duration. Pain level reassessed. Patient is alert, oriented x 3, equal unlabored respirations, skin warm/dry/pink. appears less distressed. pt tolerating BiPap mask well. 04:06 Reassessment: Patient appears in no apparent distress at this time. Patient and/or jd3 family updated on plan of care and expected duration. Pain level reassessed. Patient is alert, oriented x 3, equal unlabored respirations, skin warm/dry/pink. Respiratory: Airway is patent Respiratory effort is unlabored, Respiratory pattern is symmetrical, tachypnea. 04:54 Reassessment: Patient appears in no apparent distress at this time. No changes from [facility] previously documented assessment. Patient and/or family updated on plan of care and expected duration. Pain level reassessed. Patient is alert, oriented x 3, equal unlabored respirations, skin warm/dry/pink. daughter called [phone]. Patient states feeling better. Vital Signs: 02:12 BP 187 / 85; Pulse 90; Resp 30; Temp 97.7(O); Pulse Ox 62% on R/A; Weight 61.23 kg (R); fc Height 5 ft. 7 in. (170.18 cm) (R); Pain 0/10; 02:14 Pulse Ox 86% on 50% Venturi mask; fc 02:17 Pulse Ox 98% on 60% BiPAP; fc 03:02 BP 147 / 119; Pulse 85; Resp 26 S; Pulse Ox 100% on 60% BiPAP; jd3 04:05 BP 141 / 99; Pulse 83; Resp 22 S; Pulse Ox 99% on 60% BiPAP; jd3 02:12 Body Mass Index 21.14 (61.23 kg, 170.18 cm) fc ED Course: 02:12 Arm band placed on Patient placed in an exam room, on a stretcher. fc 02:12 Patient has correct armband on for positive identification. Placed in gown. Bed in low fc position. Call light in reach. Side rails up X2. campus monitor on. Pulse ox on. NIBP on. 02:12 No provider procedures requiring assistance completed. fc 02:16 Inserted saline lock: 20 gauge in right antecubital area, using aseptic technique. fc ,using aseptic technique. per Monty REN. 02:16 O2 via Bipap 12/7 with Fio2 of 60%. fc 02:17 Inserted saline lock: 20 gauge in left forearm, using aseptic technique. ,using aseptic fc technique. per [employer]. 02:21 Patient arrived in ED. fc 02:24 Triage completed. fc 02:36 Mat Mccloud MD is Attending Physician. zhou 02:41 Monty Elliott RN is Primary Nurse. jd3 02:41 Chest Single View XRAY In Process Unspecified. EDMS 02:48 Louie Rojas MD is Hospitalizing Provider. zhou 03:19 Notified ED physician of a critical lab result(s). co2 of 43. fc 04:40 Patient admitted, IV remains in place. jd3 Administered Medications: 02:45 Not Given (Duplicate Order): NS 0.9% (30 ml/kg) 30 ml/kg IV at bolus once; Sepsis zhou Protocol 03:00 Drug: SOLU-Medrol 125 mg Route: IVP; Site: left forearm; jd3 04:00 Follow up: Response: No adverse reaction jd3 03:01 Drug: Xopenex 3.75 mg Route: Inhalation; jd3 03:01 Drug: AtroVENT Aerosol 0.5 mg Route: Inhalation; jd3 03:01 Drug: Lasix 40 mg Route: IVP; Site: left forearm; jd3 04:00 Follow up: Response: No adverse reaction jd3 03:01 Drug: Nitro-Bid Ointment 2 % 1 inches Route: Transdermal; Site: anterior chest wall; jd3 03:02 Drug: LevaQUIN 500 mg Volume: 100 ml; Route: IVPB; Infused Over: 60 mins; Site: right jd3 antecubital; 04:00 Follow up: Response: No adverse reaction; IV Status: Completed infusion jd3 03:22 Drug: NS 0.9% 1000 ml Route: IV; Rate: 75 ml/hr; Site: right antecubital; jd3 04:57 Follow up: Response: No adverse reaction; IV Status: Infusion continued upon admission jd3 03:23 Drug: Pepcid 20 mg Route: IVP; Site: right antecubital; jd3 04:20 Follow up: Response: No adverse reaction jd3 04:03 Drug: Nicoderm CQ 21 mg/24 hr 1 patches {Note: placed to right arm..} Route: jd3 Transdermal; Site: affected area; Outcome: 02:49 Decision to Hospitalize by Provider. zhou 04:40 Condition: stable jd3 04:40 Instructed on the need for admit, Demonstrated understanding of instructions. 04:53 Admitted to Tele accompanied by tech, via stretcher, room 431, with oxygen, with chart, jd3 Report called to Sandrine REN 05:32 Patient left the ED. jd3 Signatures: Dispatcher [employer] EDCA Mat Mccloud MD MD cha Chretien, Felicia, RN Monty Guerra RN RN jd3 Corrections: (The following items were deleted from the chart) 03:05 03:02 BP 147 / 119; Pulse 85bpm; Resp 29bpm; Spontaneous; Pulse Ox 100% 02 60% BiPAP; jd3 jd3 04:40 04:05 BP 141 / 117; Pulse 83bpm; Resp 22bpm; Spontaneous; Pulse Ox 99% 02 60% BiPAP; [id number] 04:56 04:54 Reassessment: Patient appears in no apparent distress at this time. No changes jd3 from previously documented assessment. Patient and/or family updated on plan of care and expected duration. Pain level reassessed. Patient is alert, oriented x 3, equal unlabored respirations, skin warm/dry/pink. Patient states feeling better. jd3
--- NOTE | 2019-09-15 02:50 | EDPHYS ---
Physician Documentation [facility] Name: Radha Limon Age: 79 yrs Sex: Female : 1940 Arrival Date: 09/15/2019 Time: 02:21 Bed 3 Private MD: ED Physician Mat Mccloud HPI: 09/15 02:41 This 79 yrs old Female presents to ER via EMS with complaints of Shortness Of zhou Breath. 02:41 The patient has shortness of breath with light activity. Onset: The symptoms/episode zhou began/occurred 2 day(s) ago. Duration: The symptoms are continuous, and are steadily getting worse. The patient's shortness of breath has no apparent modifying factors. Associated signs and symptoms: Pertinent positives: non-productive cough. Severity of symptoms: At their worst the symptoms were mild moderate in the emergency department the symptoms are unchanged. The patient has not experienced similar symptoms in the past. Historical: - Allergies: 03:10 Hydrocortisone; fc - PMHx: 03:10 COPD; Emphysema; Hypothyroidism; Hypertension; Diabetes - NIDDM; Pneumonia; CHF; fc Hyperlipidemia; - Immunization history:: Last tetanus immunization: unknown, Flu vaccine is up to date. - Social history:: Smoking status: Patient uses tobacco products, smokes two packs cigarettes per day. Patient/guardian denies using alcohol, street drugs. - Ebola Screening: : Patient negative for fever greater than or equal to 101.5 degrees Fahrenheit, and additional compatible Ebola Virus Disease symptoms Patient denies exposure to infectious person Patient denies travel to an Ebola-affected area in the 21 days before illness onset. - Family history:: not pertinent. ROS: 02:41 Constitutional: Negative for fever, chills, and weight loss, Eyes: Negative for injury, zhou pain, redness, and discharge, ENT: Negative for injury, pain, and discharge, Neck: Negative for injury, pain, and swelling, Cardiovascular: Negative for chest pain, palpitations, and edema, Abdomen/GI: Negative for abdominal pain, nausea, vomiting, diarrhea, and constipation, Back: Negative for injury and pain, : Negative for injury, bleeding, discharge, and swelling, MS/Extremity: Negative for injury and deformity, Skin: Negative for injury, rash, and discoloration, Neuro: Negative for headache, weakness, numbness, tingling, and seizure, Psych: Negative for depression, anxiety, suicide ideation, homicidal ideation, and hallucinations, Allergy/Immunology: Negative for hives, rash, and allergies, Endocrine: Negative for neck swelling, polydipsia, polyuria, polyphagia, and marked weight changes, Hematologic/Lymphatic: Negative for swollen nodes, abnormal bleeding, and unusual bruising. 02:41 Respiratory: Positive for cough, shortness of breath, wheezing, inspiratory, expiratory. Exam: 02:41 Constitutional: This is a well developed, well nourished patient who is awake, alert, zhou and in no acute distress. Head/Face: Normocephalic, atraumatic. Eyes: Pupils equal round and reactive to light, extra-ocular motions intact. Lids and lashes normal. Conjunctiva and sclera are non-icteric and not injected. Cornea within normal limits. Periorbital areas with no swelling, redness, or edema. ENT: Nares patent. No nasal discharge, no septal abnormalities noted. Tympanic membranes are normal and external auditory canals are clear. Oropharynx with no redness, swelling, or masses, exudates, or evidence of obstruction, uvula midline. Mucous membranes moist. Neck: Trachea midline, no thyromegaly or masses palpated, and no cervical lymphadenopathy. Supple, full range of motion without nuchal rigidity, or vertebral point tenderness. No Meningismus. Chest/axilla: Normal chest wall appearance and motion. Nontender with no deformity. No lesions are appreciated. Cardiovascular: Regular rate and rhythm with a normal S1 and S2. No gallops, murmurs, or rubs. Normal PMI, no JVD. No pulse deficits. Abdomen/GI: Soft, non-tender, with normal bowel sounds. No distension or tympany. No guarding or rebound. No evidence of tenderness throughout. Back: No spinal tenderness. No costovertebral tenderness. Full range of motion. Female : Normal external genitalia. Skin: Warm, dry with normal turgor. Normal color with no rashes, no lesions, and no evidence of cellulitis. MS/ Extremity: Pulses equal, no cyanosis. Neurovascular intact. Full, normal range of motion. Neuro: Awake and alert, GCS 15, oriented to person, place, time, and situation. Cranial nerves II-XII grossly intact. Motor strength 5/5 in all extremities. Sensory grossly intact. Cerebellar exam normal. Normal gait. Psych: Awake, alert, with orientation to person, place and time. Behavior, mood, and affect are within normal limits. 02:41 Respiratory: mild respiratory distress is noted, Respirations: prolonged exhalation, pursed lip breathing, that is mild, that is moderate, Breath sounds: rhonchi, + upper airway congestion. wheezing: inspiratory expiratory Vital Signs: 02:12 BP 187 / 85; Pulse 90; Resp 30; Temp 97.7(O); Pulse Ox 62% on R/A; Weight 61.23 kg (R); fc Height 5 ft. 7 in. (170.18 cm) (R); Pain 0/10; 02:14 Pulse Ox 86% on 50% Venturi mask; 02:17 Pulse Ox 98% on 60% BiPAP; 03:02 BP 147 / 119; Pulse 85; Resp 26 S; Pulse Ox 100% on 60% BiPAP; jd3 04:05 BP 141 / 99; Pulse 83; Resp 22 S; Pulse Ox 99% on 60% BiPAP; jd3 02:12 Body Mass Index 21.14 (61.23 kg, 170.18 cm) MDM: 02:36 Patient medically screened. [facility] 02:45 Data reviewed: vital signs, nurses notes, lab test result(s), EKG, radiologic studies, zhou plain films. 09/15 02:32 Order name: Basic Metabolic Panel; Complete Time: 03:42 09/15 02:32 Order name: Blood Culture Adult (2) 09/15 02:32 Order name: CBC with Diff; Complete Time: 03:17 09/15 02:32 Order name: Ckmb; Complete Time: 03:42 09/15 02:32 Order name: CPK; Complete Time: 03:42 09/15 02:32 Order name: Lactate; Complete Time: 03:17 09/15 02:32 Order name: LFT's; Complete Time: 03:42 09/15 02:32 Order name: Lipase; Complete Time: 03:42 09/15 02:32 Order name: Procalcitonin; Complete Time: 03:42 09/15 02:32 Order name: Protime (+inr); Complete Time: 03:17 09/15 02:32 Order name: Ptt, Activated; Complete Time: 03:17 09/15 02:32 Order name: Troponin (emerg Dept Use Only); Complete Time: 03:42 09/15 02:32 Order name: Urine Microscopic Only 09/15 02:37 Order name: Magnesium; Complete Time: 03:17 [facility] 09/15 02:32 Order name: Chest Single View XRAY 09/15 02:37 Order name: NT PRO-BNP; Complete Time: 03:17 [facility] 09/15 02:40 Order name: Urine Culture [facility] 09/15 02:51 Order name: Glucose, Ancillary Testing; Complete Time: 03:17 [facility] 09/15 03:16 Order name: ABG; Complete Time: 03:42 [facility] 09/15 05:15 Order name: Urine Dipstick--Ancillary (enter results) [facility] 09/15 05:28 Order name: Urine Dipstick-Ancillary [facility] 09/15 02:32 Order name: Accucheck; Complete Time: 02:41 09/15 02:32 Order name: Cardiac monitoring; Complete Time: 02:32 09/15 02:32 Order name: EKG - Nurse/Tech; Complete Time: 02:32 09/15 02:32 Order name: IV Saline Lock - Large Bore; Complete Time: 02:32 09/15 02:32 Order name: Labs collected and sent; Complete Time: 02:32 09/15 02:32 Order name: O2 Per Protocol; Complete Time: 02:32 09/15 02:32 Order name: O2 Sat Monitoring; Complete Time: 02:32 09/15 02:37 Order name: EKG; Complete Time: 02:38 [facility] 09/15 02:37 Order name: IV Saline Lock; Complete Time: 02:41 [facility] 09/15 04:41 Order name: Heart Healthy EDMS Administered Medications: 02:45 Not Given (Duplicate Order): NS 0.9% (30 ml/kg) 30 ml/kg IV at bolus once; Sepsis [facility] Protocol 03:00 Drug: SOLU-Medrol 125 mg Route: IVP; Site: left forearm; jd3 04:00 Follow up: Response: No adverse reaction jd3 03:01 Drug: Xopenex 3.75 mg Route: Inhalation; jd3 03:01 Drug: AtroVENT Aerosol 0.5 mg Route: Inhalation; jd3 03:01 Drug: Lasix 40 mg Route: IVP; Site: left forearm; jd3 04:00 Follow up: Response: No adverse reaction jd3 03:01 Drug: Nitro-Bid Ointment 2 % 1 inches Route: Transdermal; Site: anterior chest wall; jd3 03:02 Drug: LevaQUIN 500 mg Volume: 100 ml; Route: IVPB; Infused Over: 60 mins; Site: right jd3 antecubital; 04:00 Follow up: Response: No adverse reaction; IV Status: Completed infusion jd3 03:22 Drug: NS 0.9% 1000 ml Route: IV; Rate: 75 ml/hr; Site: right antecubital; jd3 04:57 Follow up: Response: No adverse reaction; IV Status: Infusion continued upon admission jd3 03:23 Drug: Pepcid 20 mg Route: IVP; Site: right antecubital; jd3 04:20 Follow up: Response: No adverse reaction jd3 04:03 Drug: Nicoderm CQ 21 mg/24 hr 1 patches {Note: placed to right arm..} Route: jd3 Transdermal; Site: affected area; Disposition: 09/15/19 02:49 Hospitalization ordered by Louie Rojas for Inpatient Admission. Preliminary diagnosis are Dyspnea, Hypoxemia, Acute upper respiratory infection, unspecified, Tobacco abuse counseling, Tobacco use, Chronic obstructive pulmonary disease with (acute) exacerbation, Respiratory failure, unspecified with hypercapnia, Essential (primary) hypertension. - Bed requested for Telemetry/MedSurg (Inpatient). - Status is Inpatient Admission. jd3 - Condition is Fair. - Problem is new. - Symptoms have improved. UTI on Admission? No Signatures: Dispatcher [employer] EDMS Idalia Valdes RN RN mw Anderson, Corey, MD MD cha Chretien, Felicia, RN RN fc Davies, Jonathon, RN RN jd3 Corrections: (The following items were deleted from the chart) 03:11 02:49 Hospitalization Ordered by Louie Rojas MD for Inpatient Admission. Preliminary diagnosis is Dyspnea; Hypoxemia; Acute upper respiratory infection, unspecified; Tobacco abuse counseling; Tobacco use; Chronic obstructive pulmonary disease with (acute) exacerbation. Bed requested for Telemetry/MedSurg (Inpatient). Status is Inpatient Admission. Condition is Fair. Problem is new. Symptoms have improved. UTI on Admission? No. zhou 03:43 03:11 09/15/2019 02:49 Hospitalization Ordered by Louie Rojas MD for Inpatient zhou Admission. Preliminary diagnosis is Dyspnea; Hypoxemia; Acute upper respiratory infection, unspecified; Tobacco abuse counseling; Tobacco use; Chronic obstructive pulmonary disease with (acute) exacerbation. Bed requested for Telemetry/MedSurg (Inpatient). Status is Inpatient Admission. Condition is Fair. Problem is new. Symptoms have improved. UTI on Admission? No. mw 05:32 03:43 09/15/2019 02:49 Hospitalization Ordered by Louie Rojas MD for Inpatient jd3 Admission. Preliminary diagnosis is Dyspnea; Hypoxemia; Acute upper respiratory infection, unspecified; Tobacco abuse counseling; Tobacco use; Chronic obstructive pulmonary disease with (acute) exacerbation; Respiratory failure, unspecified with hypercapnia; Essential (primary) hypertension. Bed requested for Telemetry/MedSurg (Inpatient). Status is Inpatient Admission. Condition is Fair. Problem is new. Symptoms have improved. UTI on Admission? No. zhou
[2019-09-15 02:54] LABS: Protime INR 0.89
[2019-09-15 03:03] LABS: Magnesium 2.2 mg/dL (1.8-2.4)
[2019-09-15] MEDS ORDERED: NA CHLORIDE 0.9% 1,000 ML ONE (03:12)
[2019-09-15] MEDS ORDERED: FAMOTIDINE 20 MG/2 ML VIAL IV ONE (03:12)
[2019-09-15 03:17] LABS: ALT/SGPT 9 U/L (12-78); AST/SGOT 19 U/L (15-37); Albumin 3.5 g/dL (3.4-5.0); Alkaline Phosphatase 81 U/L (45-117); BUN Blood Urea Nitrogen 16 mg/dL (7-18); Bilirubin Direct 0.1 mg/dL (0-0.2); Bilirubin Total 0.5 mg/dL (0.2-1.0); Creatine Phosphokinase 59 U/L (26-192); Glucose Level 136 mg/dL (74-106); Lipase 133 U/L (73-393); Potassium 4.4 mmol/L (3.5-5.1); Protein, Total 7.6 g/dL (6.4-8.2); Sodium Level 136 mmol/L (136-145); Troponin (Emerg Dept Use Only) < 0.02 ng/mL (0.0-0.045)
[2019-09-15 03:19] LABS: Bicarbonate 43 mmol/L (21-32)
[2019-09-15 03:36] LABS: Arterial Blood Carboxyhemoglob 1.1 % (0-1.5); Blood Gas Oxyhemoglobin 97.1 % (94-97); Blood O2 Saturation 99.1 % (92-98.5)
[2019-09-15] MEDS ORDERED: NICOTINE 21 MG/PAT TD ONE (03:53)
[2019-09-15] MEDS ORDERED: ACETAMINOPHEN 500 MG TAB PO PRN (04:36)
[2019-09-15] MEDS ORDERED: IPRATROPIUM BROM 0.5MG/2.5ML NEB PRN (04:36)
[2019-09-15] MEDS ORDERED: ALBUTEROL 2.5 MG/3 ML NEB SOL NEB PRN ×2 (04:36→08:00)
[2019-09-15] MEDS ORDERED: ONDANSETRON 4 MG/2 ML VIAL IV PRN (04:36)
[2019-09-15] MEDS ORDERED: NA CHLORIDE 0.9% 1,000 ML IV SCH (05:00)
[2019-09-15 05:27] LABS: Urine Blood NEGATIVE (NEG); Urine Glucose NEGATIVE (NEG); Urine Protein NEGATIVE (NEG); Urine Specific Gravity 1.015 (1.005-1.030)
[2019-09-15 05:31] LABS: Urine Bacteria <20 /HPF (<20); Urine Culture Reflex Order NOT NEEDED; Urine RBC NONE SEEN /HPF (NONE SEEN)
[2019-09-15] MEDS ORDERED: AZITHROMYCIN IV 500 MG in NA CHLORIDE 0.9% 250 ML IVPB SCH ×2 (06:00→09:00)
[2019-09-15 06:12] VITALS: BMI 22.6
[2019-09-15 08:48] LABS: Arterial Blood Carboxyhemoglob 1.8 % (0-1.5); Blood Gas Oxyhemoglobin 90.7 % (94-97); Blood O2 Saturation 92.9 % (92-98.5)
[2019-09-15] MEDS ORDERED: CEFTRIAXONE 1 GM/NS 50 ML 1 GM/50 ML BAG IV SCH (09:00)
[2019-09-15] MEDS ORDERED: CEFTRIAXONE/SWI 1gm 1 GM/10 ML SYR IVP SCH (09:00)
--- NOTE | 2019-09-15 09:45 | RAD REPORT ---
EXAM DESCRIPTION: RAD - Chest Single View - 09/15/2019 2:43 am CLINICAL HISTORY: SOB Chest pain. COMPARISON: Chest Single View dated 02/07/2019; Chest Single View dated 11/06/2018; Chest Single View dated 06/12/2018; Chest Single View dated 09/15/2017; Chest Angio dated 11/07/2018 FINDINGS: Portable technique limits examination quality. Emphysematous changes are noted. Right hilar mass again seen, increased moderately in size since comp arative study. The heart is normal in size. Aortic atherosclerosis.
--- NOTE | 2019-09-15 09:58 | P.HP ---
Certification for Inpatient Patient admitted to: Inpatient With expected LOS: >2 Midnights Patient will require the following post-hospital care: None Practitioner: I am a practitioner with admitting privileges, knowledge of patient current condition, hospital course, and medical plan of care. Services: Services provided to patient in accordance with Admission requirements found in Title 42 Section 412.3 of the Code of Federal Regulations Patient History Date of Service: 09/15/19 Reason for admission: Respiratory distress History of Present Illness: Patient is a 79-year-old female came to the hospital with respiratory distress. She was found have hypercapnic hypoxic respiratory failure. She was placed on BiPAP. Her respiratory status is started to improve. Will continue with nebs, steroids, and antibiotics. Will get her weaned off of BiPAP. Will repeat her ABGs and try to get her on nasal cannula as she is very upset about being on a BiPAP. She is feeling better and at this time will repeat ABGs to see if we can place her on nasal cannula. She does have hypercapnia and would benefit from BiPAP. She also needs to refrain from smoking. She continues to smoke 4 cigarettes daily. She will be admitted for inpatient treatment. Allergies hydrocortisone Allergy (Verified 11/07/18 05:01) Nausea/Vomiting Home Medications: Furosemide 40 mg PO DAILY 11/07/18 Levothyroxine Sodium 50 mcg PO DAILY 11/07/18 Lisinopril 10 mg PO DAILY 11/07/18 Nitroglycerin [Nitrostat*] 0.4 mg SL Q6H PRN 11/07/18 Simvastatin 80 mg PO BEDTIME 11/07/18 levoFLOXacin [Levaquin] 500 mg PO DAILY #10 tab 11/08/18 predniSONE [Deltasone*] 10 mg PO BID #20 tab 11/08/18 - Past Medical/Surgical History Has patient received pneumonia vaccine in the past: Yes Diabetic: No -: CHF -: COPD -: DMII -: Hypothyroid -: Hyperlipidemia -: Asthma -: Choley -: Eye sx X3 -: Colon surgery -: Cardiac stent -: PAD stent bilaterally - Family History Father Notes: parkinsons Brother Medical History: Heart disease Notes: heart attack Mother Medical History: Heart disease - Social History Smoking Status: Current every day smoker Alcohol use: Yes Caffeine use: Yes Place of Residence: Home Review of Systems 10-point ROS is otherwise unremarkable Physical Examination - Vital Signs Temperature: 98.1 F Blood Pressure: 123/61 Pulse: 87 Respirations: 20 Pulse Ox (%): 96 - Physical Exam General: Alert, Oriented x3, Severe distress HEENT: Atraumatic, PERRLA, Mucous membr. moist/pink, EOMI, Sclerae nonicteric Neck: Supple, 2+ carotid pulse no bruit, No LAD, Without JVD or thyroid abnormality Respiratory: Diminished, Expiratory wheezes Cardiovascular: Regular rate/rhythm, Normal S1 S2, Systolic murmur Gastrointestinal: Normal bowel sounds, Soft and benign, Non-distended, No tenderness Musculoskeletal: No clubbing, No swelling, No tenderness Integumentary: No rashes Neurological: Normal gait, Normal speech, Normal strength at 5/5 x4 extr, Normal tone, Sensation intact, Cranial nerves 3-12 intact, Normal affect Lymphatics: No axilla or inguinal lymphadenopathy - Studies Laboratory Data (last 24 hrs) 09/15/19 02:25: Magnesium 2.2 09/15/19 02:25: PT 10.6, INR 0.89, APTT 24.8 09/15/19 02:25: WBC 5.3, Hgb 15.1 H, Hct 47.7 H, Plt Count 218 09/15/19 02:25: Sodium 136, Potassium 4.4, BUN 16, Creatinine 0.70, Glucose 136 H, Total Bilirubin 0.5, AST 19, ALT 9 L, Alkaline Phosphatase 81, Lipase 133 Assessment & Plan - Problems (Diagnosis) (1) Acute on chronic respiratory failure with hypoxia and hypercapnia Current Visit: Yes Status: Acute (2) Lung mass Current Visit: No Status: Acute (3) CHF (congestive heart failure) Onset Date: 04/09/15 Current Visit: No Status: Chronic Qualifiers: (4) COPD (chronic obstructive pulmonary disease) Onset Date: 04/09/15 Current Visit: No Status: Chronic Qualifiers: (5) Hypertension Onset Date: 06/13/18 Current Visit: No Status: Chronic Qualifiers: - Plan 1. Continue with IV antibiotics 2. Awaiting sputum and blood culture 3. Repeat chest x-ray 4. Will proceed with CT scan of the chest 5. Pulmonary consultation 6. Continue with nebs as needed 7. O2 per protocol 8. Continue with gentle hydration 9. Repeat labs including CBC and renal function in a.m. 10. GI and DVT prophylaxis Discharge Plan: Home Plan to discharge in: Greater than 2 days - Advance Directives Does patient have a Living Will: Yes Does patient have a Durable POA for Healthcare: Yes - Code Status/Comfort Care Code Status Assessed: Yes Code Status: Full Code Critical Care: No Time Spent Managing PTS Care (In Minutes): 45
--- NOTE | 2019-09-15 11:32 | P.CNS ---
Date of Consult: 09/15/19 Reason for Consult: Respiratory failure and lung mass Chief Complaint: Respiratory distress lung mass presumed lung cancer History of Present Illness: Patient is 79 years of age a very poor poor historian very agitated wants to go home admitted with respiratory failure. Admitted with respiratory distress apparently she was living with a nephew at asked her to leave the house and she became very anxious patient is an active smoker was started on BiPAP uses bronchodilators at home. Patient was last admitted in Oct as found to have a right hilar mass patient did not follow up presumed lung cancer he had appears to me that the lung mass is increased in size Allergies hydrocortisone Allergy (Verified 11/07/18 05:01) Nausea/Vomiting Home Medications: Levothyroxine Sodium 50 mcg PO DAILY 11/07/18 Lisinopril 10 mg PO DAILY 11/07/18 Clopidogrel Bisulfate [Plavix] 1 tab PO DAILY 09/15/19 Levalbuterol [Xopenex*] 1 puff IH Q4H 09/15/19 Metformin ER [Glucophage ER*] 1 tab PO DAILY 09/15/19 - Past Medical/Surgical History Diabetic: No -: CHF -: COPD -: DMII -: Hypothyroid -: Hyperlipidemia -: Asthma -: Choley -: Eye sx X3 -: Colon surgery -: Cardiac stent -: PAD stent bilaterally - Family History Father Notes: parkinsons Brother Medical History: Heart disease Notes: heart attack Mother Medical History: Heart disease - Social History Smoking Status: Current every day smoker Alcohol use: Yes CD- Drugs: No Caffeine use: Yes Place of Residence: Home Review of Systems General: Weakness, Other (Weight loss) Respiratory: Cough, Shortness of Breath Neurological: Weakness Physical Examination Temp Pulse Resp BP Pulse Ox 98.1 F 87 20 123/61 96 09/15/19 09:58 09/15/19 09:58 09/15/19 09:58 09/15/19 09:58 09/15/19 09:58 General: Alert, In no apparent distress, Oriented x3 Respiratory: Diminished, Expiratory wheezes Cardiovascular: No edema, Normal pulses, Regular rate/rhythm Gastrointestinal: Normal bowel sounds, Soft and benign Musculoskeletal: No clubbing, No swelling Laboratory Data (last 24 hrs) 09/15/19 02:25: Magnesium 2.2 09/15/19 02:25: PT 10.6, INR 0.89, APTT 24.8 09/15/19 02:25: WBC 5.3, Hgb 15.1 H, Hct 47.7 H, Plt Count 218 09/15/19 02:25: Sodium 136, Potassium 4.4, BUN 16, Creatinine 0.70, Glucose 136 H, Total Bilirubin 0.5, AST 19, ALT 9 L, Alkaline Phosphatase 81, Lipase 133 - Problems (1) Hilar mass Onset Date: 06/13/18 Current Visit: No Status: Acute Plan: Patient is 79 years of age admitted with respiratory distress she has history us of COPD and was admitted in October this year with a right hilar mass that seems to have progressed patient is hypoxic hypercapnic respiratory failure still continues to smoke. Patient did not follow-up regarding a diagnostic workup for her lung mass. She has a little agitated wants to go home the right hilar mass looks worse patient is hypoxic hypercapnic I suspect that she has chronic hypercapnia I recommend also adding and Diamox patient is a bronchodilator need to be optimize she only takes Xopenex at home I recommend a long-acting bronchodilator he could start off with Advair or Symbicort and had low doses of prednisone and a previous admission patient had pneumonia there is no clinical evidence of sepsis this time there is no evidence of pneumonia Dc antibiotics at steroids I have also started here on Dulera which she can go home on follow-up with me in 2 weeks when consider hospice care
[2019-09-15] MEDS: METHYLPREDNISOLONE 40 MG INJ IV SCH ×2 (12:23→16:03)
[2019-09-15] MEDS: ALBUTEROL 2.5 MG/3 ML NEB SOL NEB SCH ×2 (13:25→20:00)
--- NOTE | 2019-09-15 14:20 | EKG ---
Test Date: 2019-09-15 Test Time: 02:26:26 Towel Folder: VEENA MEASUREMENT RESULTS: Intervals: Rate: 81 UT: 146 QRSD: 80 QT: 384 QTc: 446 [place]: P: 76 UT: 146 QRS: 67 T: 44 INTERPRETIVE STATEMENTS: Sinus rhythm with marked sinus arrhythmia Possible Left atrial enlargement Anterior infarct, age undetermined Abnormal ECG Compared to ECG 02/07/2019 17:01:28 No significant changes Electronically Signed On 09-15-19 14:19:16 [employer] by Casper Jon
[2019-09-15] MEDS: ENOXAPARIN 40 MG/0.4 ML SQ SCH ×2 (16:02→16:10)
[2019-09-15] MEDS: DULERA 200/5 (MOMETASONE/FORMOTEROL) INHALER IH SCH (21:00)
[2019-09-16] MEDS: METHYLPREDNISOLONE 40 MG INJ IV SCH ×3 (01:00→17:05)
[2019-09-16] MEDS: ALBUTEROL 2.5 MG/3 ML NEB SOL NEB SCH ×4 (01:05→19:15)
[2019-09-16 04:15] LABS: Absolute Lymphocytes (CBC) 0.5 K/uL (0.7-4.9); Hematocrit 41.3 % (36.0-45.0); Lymphocytes % 13.3 % (15.3-44.8); MPV 8.1 fL (7.6-11.3); RBC Red Blood Cell Count 4.37 M/uL (3.86-4.86)
[2019-09-16 04:48] LABS: Albumin 3.2 g/dL (3.4-5.0); Bilirubin Total 0.7 mg/dL (0.2-1.0); Phosphorus 2.8 mg/dL (2.5-4.9); Potassium 4.1 mmol/L (3.5-5.1); Protein, Total 6.7 g/dL (6.4-8.2)
[2019-09-16] MEDS: ENOXAPARIN 40 MG/0.4 ML SQ SCH (08:12)
[2019-09-16] MEDS: DULERA 200/5 (MOMETASONE/FORMOTEROL) INHALER IH SCH ×2 (09:23→21:00)
[2019-09-16] MEDS ORDERED: GLUCAGON 1 MG/VIAL IM PRN (11:37)
[2019-09-16] MEDS ORDERED: D50W 25 GM/50 ML SYRINGE/VIAL IV PRN (11:37)
[2019-09-16] MEDS ORDERED: HYDRALAZINE HCL 20 MG/ML VIAL IV PRN (11:43)
[2019-09-16] MEDS: lisinopriL 10 MG TAB PO SCH (12:02)
[2019-09-16] MEDS: CLOPIDOGREL 75 MG TABLET PO SCH (12:02)
[2019-09-16] MEDS: INSULIN -REGULAR HUMAN 50 UNIT/0.5 ML ML SQ SCH ×2 (16:30→20:15)
--- NOTE | 2019-09-16 16:32 | RAD REPORT ---
EXAM DESCRIPTION: CT - Thorax W/ Con - 09/16/2019 3:56 pm CLINICAL HISTORY: Lung mass, shortness of breath COMPARISON: Portable chest September 15, [address] chest November 07, 2018 TECHNIQUE: Dynamically enhanced 5 mm thick images of the chest were obtained during administration o f 100 mL non-ionic IV contrast. All CT scans are performed using dose optimization technique as appropriate and may include automated exposure control or mA/KV adjustment according to patient size. FINDINGS: Large right lobe and very enlarged lobulated left lobe of the thyroid gland again noted. T his is a stable presentation. Stranding in the lingula is similar to comparison. No new or progressiv e left lung field finding. A 14 x 14 millimeter spiculated mass is present in the anterior right uppe r lobe at the aortic arch level (image 16/61). This is substantial enlargement from October. There quevedo s been substantial enlargement of the previously detailed medial superior right lower lobe mass. Mass was previously measured at 3.5 x 3.5 cm. The mass is now 4.4 cm AP x 5.1 cm TR. Malignant lymphadeno jillian is not present on the right hilum with multiple 14- 25 centimeter confluent masses. Subcarinal parenchymal opacification has increased. There is a 19 x 12 mm pretracheal lymph node present. Small right pleural effusion has developed. No pneumothorax. No chest wall mass or abnormal axillary lympha denopathy. Aorta and pulmonary arterial tree still enhance normally. No pericardial thickening or effusion. Adrenal glands are stable from October imaging. 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 Substantial progression of tumor around the right hilum and into the mediastinum. There is a presu med enlarged metastatic nodule in the anterior right upper lobe. New small pleural effusion.
--- NOTE | 2019-09-16 17:44 | PN ---
Subjective: Currently, patient is lying in bed. She looks comfortable. She continued to refuse the procedure, but her daughter insisting that the patient to have to stay and go to the procedure and c onsider the biopsy for the lungs. She denies any chest pain or shortness of breath and she is demand ing to go home. Physical Examination: Vital Signs: Currently, blood pressure is 159/76, respiratory rate 20, pulse 72, temperature 97.1. General: Patient is alert and oriented x3. Does not look in any distress. HEENT: Atraumatic, normocephalic. PERRLA. Oral mucosa is moist. Neck: Supple. No JVD. No bruits. Chest: Decreased breath sounds at the bases. There is expiratory wheezing. Heart: Regular rate and rhythm. S1, S2 normal. No gallop or murmur. Abdomen: Soft, nontender. No masses. No hepatosplenomegaly. Positive bowel sounds. Extremities: No clubbing, no cyanosis, no edema. No calf tenderness. Neurologic: Grossly intact. Laboratory Data: Today, showed CBC within normal limits except for white blood cells 4. Chemistry wi thin normal limits except for a carbon dioxide of 42, chloride of 88, sodium 132, glucose 113. 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 Assessment And Plan: This is an 79-year-old female, admitted with respiratory distress. 1.Chronic obstructive pulmonary disease exacerbation. Patient was started on IV antibiotic with thalia roid by Dr. Black, which I appreciate the consult. Discontinue antibiotic and adjust her inhaler. I did not think patient has pneumonia. 2.Lung mass, highly suspicious for malignancy. Patient initially refused biopsy on previous admissi on. She also refused biopsy yesterday. She wants to go home, but when we discussed that with her tyrese berrios on the phone, who is the [id number], she demanded that the mother stay and have the bio psy. We discussed that with Dr. Black again and he advised to proceed with CAT scan of the chest. This morning, patient denied CAT scan of the chest. But after round, she said she will do it, so w e will proceed with CAT scan of the chest and depend on the results, Dr. Black decide if she would do a bronchoscopy and biopsy versus IR with CT-guided biopsy. 3.Hypertension, not well controlled. We will resume the patient's lisinopril and place her on hydra lazine p.r.n. 4.Hypothyroidism, we will replace. We will continue patient's Synthroid. 5.History of coronary artery disease. Continue patient on Plavix. 6.Diabetes. We will continue patient on Glucophage 500 mg daily and continue insulin sliding scale. 7.Deep vein thrombosis prophylaxis, that we will hold off as the patient may receive a biopsy. VEENA/ROBYN Voice ID: [id number] Report ID: [id number]
[2019-09-17] MEDS: METHYLPREDNISOLONE 40 MG INJ IV SCH ×2 (00:25→08:45)
[2019-09-17] MEDS: ALBUTEROL 2.5 MG/3 ML NEB SOL NEB SCH ×3 (01:05→13:46)
[2019-09-17 02:30] VITALS: O2SAT 94
[2019-09-17] MEDS ORDERED: LEVOTHYROXINE SOD 0.05 MG TABLET PO SCH (06:00)
[2019-09-17] MEDS: INSULIN -REGULAR HUMAN 50 UNIT/0.5 ML ML SQ SCH ×3 (07:30→16:30)
[2019-09-17] MEDS: CLOPIDOGREL 75 MG TABLET PO SCH (08:37)
[2019-09-17] MEDS: lisinopriL 10 MG TAB PO SCH (08:37)
[2019-09-17] MEDS: ENOXAPARIN 40 MG/0.4 ML SQ SCH (08:39)
[2019-09-17] MEDS ORDERED: METFORMIN ER 500 MG TAB PO SCH (12:00)
--- NOTE | 2019-09-17 12:01 | P.PN ---
Subjective Date of Service: 09/17/19 Chief Complaint: Lung cancer No change in her condition CT scan reviewed the show progression of for lung mass presumed lung cancer. Discuss with the patient she wants to have a bronchoscopy done unfortunately she is on Plavix and will need to be postponed for about a week the why she is doing better Review of Systems General: Weakness Respiratory: Cough, Shortness of Breath Physical Examination - Vital Signs Temperature: 98.1 F Blood Pressure: 133/65 Pulse: 76 Respirations: 18 Pulse Ox (%): 95 - Physical Exam General: Alert, In no apparent distress, Oriented x3 Respiratory: Clear to auscultation bilaterally, Diminished Cardiovascular: No edema, Regular rate/rhythm, Normal S1 S2 - Studies Microbiology Data (last 24 hrs): 09/15/19 04:30 Clean Catch Urine [place] Count - Final BETWEEN 10,000 & 100,000 CFU/ML 09/15/19 04:30 Clean Catch Urine - Final MIXED PHILIP. Assessment & Plan - Problems (Diagnosis) (1) Hilar mass Onset Date: 06/13/18 Current Visit: No Status: Acute Plan: Patient admitted with respiratory failure heavy smoker she has a progression of her presumed lung cancer discuss with the patient she wants to have a bronchoscopy done will need to stop the Plavix for a week patient to follow up with me next Tuesday to have an outpatient bronchoscopy scheduled patient's room- air sat is satisfactory discharged home on prednisone 10 mg twice a day for 14 days and a long-acting bronchodilator either Symbicort or Advair also added Diamox I have discussed with the patient the risk of bronchoscopy including bleeding infection and lung collapse and she clearly understands and agrees I have also instructed the patient to not take Plavix unless instructed by me after the bronchoscopy Discharge Plan: Home
[2019-09-17] MEDS: DULERA 200/5 (MOMETASONE/FORMOTEROL) INHALER IH SCH (12:40)
[2019-09-17 16:37] VITALS: BP 126/61; TEMP 98.7
--- NOTE | 2019-09-18 01:23 | DS ---
Date of Discharge: 09/17/2019 Space Studies Faculty Member: Dr. Black with Pulmonology. Admitting Diagnoses: 1. Acute on chronic respiratory failure with hypoxia and hypercapnia. 2. Lung mass. 3. Congestive heart failure. 4. Chronic obstructive pulmonary disease. 5. Essential hypertension. 6. Hypothyroidism. Discharge Diagnoses: 1. Chronic obstructive pulmonary disease exacerbation, acute, improving. 2. Lung mass. The patient to follow up with Pulmonology as an outpatient. Hold Plavix for 5 days and have bronchoscopy and biopsy. 3. Essential hypertension. 4. Hypothyroidism. Continue on Synthroid. 5. History of coronary artery disease, patient is on Plavix. 6. Diabetes mellitus type 2 on metformin, non-insulin requiring with hyperglycemia. 7. Congestive heart failure, chronic ejection fraction of 75%, diastolic dysfunction. 8. Nicotine dependence with cigarette smoking, uncomplicated. 9. Peripheral arterial disease. Hospital Course: Patient is an 79-year-old female with multiple medical problems including diabetes, CHF, COPD, hypothyroidism, hyperlipidemia, who is oxygen dependent, comes in with respiratory distress. Patient was placed on BiPAP and she did have some improvement. Pulmonology was consulted. She was then weaned off to nasal cannula breathing treatments and steroids were initiated. Patient continues to smoke. The patient did have a finding of lung mass in October, did not follow up as an outpatient with Pulmonology and on imaging has worsening lung mass in size and the right lower lobe appears malignant as well as pleural effusion. Pulmonology recommended outpatient biopsy and bronchoscopy as the patient is on Plavix. She will need to discontinue her Plavix for 5 days. I left a message for the daughter. Charge nurse also went over DC instructions with patient and family. The patient's blood cultures did not show any growth, urine culture also showed mixed jules. Overall, patient had improvement in her symptoms. She was back to her baseline respiratory status. Her ABG did show improvement. She is a chronic CO2 retainer. The patient's inhalers were adjusted. She will be discharged on Dulera as well as steroids. She will need to follow up with Pulmonology for bronchoscopy and biopsy. Patient to also followup with PCP in 2-3 days, return to ER for worsening condition. Diet: Diabetic. Activity: As tolerated. Patient to hold her Plavix until biopsy is complete and then to follow up with Pulmonology. She may resume her Plavix 24 hours post biopsy. Physical Examination: General: Awake, alert, and oriented x3 elderly female, not in any acute distress. CV: S1, S2. Respiratory: Diminished breath sounds at the right base. No wheezing or stridor. No use of accessory muscles. Gastrointestinal: Abdomen is soft, nontender, nondistended. Positive bowel sounds. Extremities: No clubbing, cyanosis, or edema. Neurologic: Nonfocal. Code Status: Full. Total time spent discharging the patient was 36 minutes. DOC Voice ID: [id number] Report ID: [id number] MTDD
== END 2019-09-17 19:20 | disposition home or self-care (01) | DRG 189 ==
LOC: ER 02:14 → 4TH 05:11 → OBSVTOIN 19:05
PROVIDERS: ADMIT Internal Medicine; ATTEND Hospitalist
PROC: 5A09357 Assistance with Respiratory Ventilation, Less than 24 Consecutive Hours, Continuous Positive Airway Pressure (ICD-10-PCS; principal; 2019-09-15)
DX: J96.22 Acute and chronic respiratory failure with hypercapnia (principal); J44.1 Chronic obstructive pulmonary disease with (acute) exacerbation; I50.32 Chronic diastolic (congestive) heart failure; J96.21 Acute and chronic respiratory failure with hypoxia; E03.9 Hypothyroidism, unspecified; E78.5 Hyperlipidemia, unspecified; I25.10 Atherosclerotic heart disease of native coronary artery without angina pectoris; I11.0 Hypertensive heart disease with heart failure; R91.8 Other nonspecific abnormal finding of lung field; E11.65 Type 2 diabetes mellitus with hyperglycemia; F17.210 Nicotine dependence, cigarettes, uncomplicated; Z95.5 Presence of coronary angioplasty implant and graft; Z99.81 Dependence on supplemental oxygen; I73.9 Peripheral vascular disease, unspecified
CPT/HCPCS: 36415; 71045; 71260; 80048; 80053; 80061; 80076; 81003; 81015; 82550; 82553; 82805; 82947; 83605; 83690; 83735; 83880; 84100; 84145; 84484; 85025; 85610; 85730; 87040; 87086; 87088; 93005; 94660; 94760; 99285; G0378; J0456; J0696; J1650; J1940; J2920; J2930; J7030; J7606; Q9967

== ENCOUNTER 2019-11-05 01:39 | Observation (INO) | payer OTHER ==
[2019-11-05] MEDS ORDERED: KETOROLAC 30 MG/ML INJ ONE (01:50)
[2019-11-05] MEDS ORDERED: TETANUS & DIPHTHERIA TOX,ADULT 0.5 ML VIAL ONE (01:51)
[2019-11-05 02:24] LABS: Absolute Lymphocytes (CBC) 1.3 K/uL (0.7-4.9); Basophils % 0.6 % (0-1.3); Hematocrit 42.2 % (36.0-45.0); Lymphocytes % 18.2 % (15.3-44.8); MPV 7.8 fL (7.6-11.3); RBC Red Blood Cell Count 4.56 M/uL (3.86-4.86)
[2019-11-05 02:27] LABS: Protime INR 0.91
[2019-11-05 02:45] LABS: ALT/SGPT 19 U/L (12-78); AST/SGOT 19 U/L (15-37); Albumin 3.3 g/dL (3.4-5.0); Alkaline Phosphatase 82 U/L (45-117); BUN Blood Urea Nitrogen 22 mg/dL (7-18); Bicarbonate 35 mmol/L (21-32); Bilirubin Direct 0.1 mg/dL (0-0.2); Bilirubin Total 0.5 mg/dL (0.2-1.0); Glucose Level 132 mg/dL (74-106); NT PRO-BNP 506 pg/mL (<450); Potassium 4.4 mmol/L (3.5-5.1); Protein, Total 6.7 g/dL (6.4-8.2); Sodium Level 133 mmol/L (136-145); Troponin (Emerg Dept Use Only) < 0.02 ng/mL (0.0-0.045)
--- NOTE | 2019-11-05 03:52 | ER ---
Nurse's Notes [facility] Name: Radha Limon Age: 79 yrs Sex: Female : 1940 Arrival Date: 11/05/2019 Time: 01:40 Bed 4 Private MD: Diagnosis: Syncope and collapse;Multiple fractures of ribs, right side Presentation: 11/05 01:42 Presenting complaint: EMS states: SHE FELL AND COULD NOT REMEMBER ANYTHING. PATIENT rv TAKES BLOOD THINNER. SHE IS COMPLAINING OF PAIN ON THE RIGHT HAND AND SHE THINKS IT IS BROKEN. Transition of care: patient was not received from another setting of care. Onset of symptoms was November 05, 2019 at 01:00. Risk Assessment: Do you want to hurt yourself or someone else? Patient reports no desire to harm self or others. Initial Sepsis Screen: Does the patient meet any 2 criteria? No. Patient's initial sepsis screen is negative. Does the patient have a suspected source of infection? No. Patient's initial sepsis screen is negative. Care prior to arrival: None. 01:42 Method Of Arrival: EMS: [facility] rv 01:42 Acuity: CRISTHIAN 3 rv Triage Assessment: 04:41 General: Behavior is calm. rv Historical: - Allergies: 01:44 Hydrocortisone; rv - PMHx: 01:44 CHF; COPD; Diabetes - NIDDM; Emphysema; Hyperlipidemia; Hypertension; Hypothyroidism; rv Pneumonia; - PSHx: 01:44 Unable to obtain; rv - Immunization history:: Adult Immunizations up to date. - Social history:: Smoking status: Patient/guardian denies using tobacco, Patient/guardian denies using alcohol, street drugs, The patient lives with family. - Ebola Screening: : No symptoms or risks identified at this time. - Family history:: not pertinent. Screenin:46 Abuse screen: Denies threats or abuse. Denies injuries from another. Nutritional rv screening: No deficits noted. Tuberculosis screening: No symptoms or risk factors identified. Fall Risk Fall in past 12 months (25 points). Secondary diagnosis (15 points) impaired mobility, Ambulatory Aid- None/Bed Rest/Nurse Assist (0 pts). Gait- Normal/Bed Rest/Wheelchair (0 pts) Mental Status- Oriented to own ability (0 pts). Total Sharp Fall Scale indicates No Risk (0-24 pts). Assessment: 01:45 General: Appears in no apparent distress. Pain: Complains of pain in right hand. Neuro: rv Level of Consciousness is awake, alert, obeys commands, Oriented to person, place, time, situation. Cardiovascular: Patient's skin is warm and dry. Respiratory: Airway is patent. EENT: Nares with drainage noted bilaterally. Derm: Wound noted LEFT ELBOW Wound is ABRASION. 02:05 Reassessment: Returned from CT. ea Vital Signs: 01:44 BP 167 / 88; Pulse 98; Resp 21; Temp 98.4; Pulse Ox 89% on R/A; Weight 62.14 kg; Height rv 5 ft. 7 in. (170.18 cm); 02:16 BP 145 / 76; Pulse 83; Resp 20; Pulse Ox 90% on R/A; ea 03:00 BP 157 / 70; Pulse 89; Resp 17; Pulse Ox 96% on 2 lpm NC; rv 04:40 BP 151 / 70; Pulse 88; Resp 16; Pulse Ox 96% on R/A; rv 01:44 Body Mass Index 21.46 (62.14 kg, 170.18 cm) rv ED Course: 01:40 Patient arrived in ED. ds1 01:40 Louie Valadez MD is Attending Physician. ma2 01:42 Mario Ching RN is Primary Nurse. rv 01:44 Triage completed. rv 01:46 Patient has correct armband on for positive identification. monitoring specialist on. Pulse rv ox on. NIBP on. 01:46 Patient placed in the treatment room, on a stretcher, on monitoring engineer, on pulse rv oximetry, Patient notified of wait time. 02:15 Inserted saline lock: 22 gauge in left antecubital area, using aseptic technique. Blood rv collected. 02:27 Wound care: to abrasion, located on RIGHT ELBOW was cleaned with Hibiclens, irrigated rv with normal saline. 02:30 CT Traumagram (Head C Spine CAP wo con) In Process Unspecified. EDMS 03:50 Ricardo Mendes is Hospitalizing Provider. ma2 04:41 No provider procedures requiring assistance completed. Patient admitted, IV remains in rv place. Administered Medications: 02:15 Drug: TORadol 30 mg Route: IVP; Site: left antecubital; rv 04:41 Follow up: Response: No adverse reaction rv 02:15 Drug: Tetanus-Diphtheria Toxoid Adult 0.5 ml {Electronics Manufacturer: [employer]. Exp: rv 11/08/2021. Lot #: [id number]. } Route: IM; Site: left deltoid; 04:41 Follow up: Response: No adverse reaction rv Outcome: 03:51 Decision to Hospitalize by Provider. andrew 04:41 Admitted to Tele accompanied by tech, via wheelchair, room 407, with chart, Report rv called to aden marie 04:41 Condition: good 04:41 Instructed on the need for admit. 04:48 Patient left the ED. rv Signatures: Dispatcher [employer] EDKatlyn Reynolds ds1 Chhaya Taylor RN RN Louie Wheeler MD MD ma2 Mario Ching RN RN rv
--- NOTE | 2019-11-05 03:52 | EDPHYS ---
Physician Documentation [facility] Name: Radha Limon Age: 79 yrs Sex: Female : 1940 Arrival Date: 11/05/2019 Time: 01:40 Bed 4 Private MD: ED Physician Louie Valadez HPI: 11/05 03:43 This 79 yrs old Female presents to ER via EMS with complaints of Fall. ma2 03:43 Onset: The symptoms/episode began/occurred suddenly. Onset: The symptoms/episode ma2 began/occurred 1 hour(s) ago. Severity of symptoms: At their worst the symptoms were mild in the emergency department the symptoms are unchanged. possible syncope, fall does not remember what happened . Historical: - Allergies: :44 Hydrocortisone; rv - PMHx: :44 CHF; COPD; Diabetes - NIDDM; Emphysema; Hyperlipidemia; Hypertension; Hypothyroidism; rv Pneumonia; - PSHx: :44 Unable to obtain; rv - Immunization history:: Adult Immunizations up to date. - Social history:: Smoking status: Patient/guardian denies using tobacco, Patient/guardian denies using alcohol, street drugs, The patient lives with family. - Ebola Screening: : No symptoms or risks identified at this time. - Family history:: not pertinent. ROS: 03:43 Constitutional: Negative for fever, chills, and weight loss. ma2 03:43 All other systems are negative. Exam: 03:43 Constitutional: This is a well developed, well nourished patient who is awake, alert, ma2 and in no acute distress. Chest/axilla: Normal chest wall appearance and motion. Nontender with no deformity. No lesions are appreciated. Cardiovascular: Regular rate and rhythm with a normal S1 and S2. No gallops, murmurs, or rubs. Normal PMI, no JVD. No pulse deficits. Respiratory: Lungs have equal breath sounds bilaterally, clear to auscultation and percussion. No rales, rhonchi or wheezes noted. No increased work of breathing, no retractions or nasal flaring. 03:43 Head/face: Noted is abrasion(s), that are moderate. 03:43 Chest/axilla: Palpation: tenderness, that is moderate. Vital Signs: 01:44 BP 167 / 88; Pulse 98; Resp 21; Temp 98.4; Pulse Ox 89% on R/A; Weight 62.14 kg; Height rv 5 ft. 7 in. (170.18 cm); 02:16 BP 145 / 76; Pulse 83; Resp 20; Pulse Ox 90% on R/A; ea 03:00 BP 157 / 70; Pulse 89; Resp 17; Pulse Ox 96% on 2 lpm NC; rv 04:40 BP 151 / 70; Pulse 88; Resp 16; Pulse Ox 96% on R/A; rv 01:44 Body Mass Index 21.46 (62.14 kg, 170.18 cm) rv MDM: 01:40 Patient medically screened. ma2 03:43 Differential Diagnosis syncope. Data reviewed: vital signs, nurses notes. Counseling: I ma2 had a detailed discussion with the patient and/or guardian regarding: the historical points, exam findings, and any diagnostic results supporting the discharge/admit diagnosis, the presence of at least one elevated blood pressure reading (>120/80) during this emergency department visit, the need for outpatient follow up. Response to treatment: the patient's symptoms have markedly improved after treatment. 11/05 01:41 Order name: Basic Metabolic Panel; Complete Time: 03:01 11/05 01:41 Order name: CBC with Diff; Complete Time: 02:26 11/05 01:41 Order name: LFT's; Complete Time: 03:01 11/05 01:41 Order name: Magnesium; Complete Time: 03:01 11/05 01:41 Order name: NT PRO-BNP; Complete Time: 03:01 11/05 01:41 Order name: PT-INR; Complete Time: 03:01 11/05 01:41 Order name: Troponin (emerg Dept Use Only); Complete Time: 03:01 11/05 01:41 Order name: EKG; Complete Time: 01:50 11/05 01:41 Order name: Cardiac monitoring; Complete Time: :47 11/05 01:41 Order name: EKG - Nurse/Tech; Complete Time: 01:47 11/05 01:41 Order name: CT Traumagram (Head C Spine CAP wo con) [facility] 11/05 04:18 Order name: ABG Arterial Blood Gas [facility] 11/05 01:41 Order name: IV Saline Lock; Complete Time: 02:[address] [facility] 11/05 01:41 Order name: Labs collected and sent; Complete Time: 02:[address] [facility] 11/05 01:41 Order name: O2 Per Protocol; Complete Time: 02:[address] [facility] 11/05 01:41 Order name: O2 Sat Monitoring; Complete Time: 02:[address] [facility] Administered Medications: 02:15 Drug: TORadol 30 mg Route: IVP; Site: left antecubital; rv 04:41 Follow up: Response: No adverse reaction rv 02:15 Drug: Tetanus-Diphtheria Toxoid Adult 0.5 ml {[employer]: [employer]. Exp: rv 11/08/2021. Lot #: [id number]. } Route: IM; Site: left deltoid; 04:41 Follow up: Response: No adverse reaction rv Disposition: 11/05/19 03:51 Hospitalization ordered by Ricardo Mendes for Observation. Preliminary diagnosis are Syncope and collapse, Multiple fractures of ribs, right side. - Bed requested for Telemetry/MedSurg (observation). - Status is Observation. rv - Condition is Stable. - Problem is new. - Symptoms are unchanged. UTI on Admission? No Signatures: Dispatcher [employer] Ciera Castle RN RN Louie Valadez MD MD [facility] Mario Ching RN RN rv Corrections: (The following items were deleted from the chart) 04:23 03:51 Hospitalization Ordered by Ricardo Mendes for Observation. Preliminary diagnosis cg is Syncope and collapse; Multiple fractures of ribs, right side. Bed requested for Telemetry/MedSurg (observation). Status is Observation. Condition is Stable. Problem is new. Symptoms are unchanged. UTI on Admission? No. ma2 04:48 04:23 11/05/2019 03:51 Hospitalization Ordered by Ricardo Mendes for Observation. rv Preliminary diagnosis is Syncope and collapse; Multiple fractures of ribs, right side. Bed requested for Telemetry/MedSurg (observation). Status is Observation. Condition is Stable. Problem is new. Symptoms are unchanged. UTI on Admission? No. cg
--- NOTE | 2019-11-05 04:06 | P.HP ---
Certification for Inpatient Patient admitted to: Observation With expected LOS: <2 Midnights Practitioner: I am a practitioner with admitting privileges, knowledge of patient current condition, hospital course, and medical plan of care. Services: Services provided to patient in accordance with Admission requirements found in Title 42 Section 412.3 of the Code of Federal Regulations Patient History Date of Service: 11/05/19 Reason for admission: Fall History of Present Illness: 79-year-old woman with a history of COPD, chronic respiratory failure on home oxygen, history of lung mass was brought to the emergency department after a fall at home. The patient reports she experienced increased shortness of breath prior to the fall. She does not remember the mechanism of fall. All that she remembered was she woke up with blood all over her and she crawled to a place where she can call for help. She stated she lives in an apartment adjacent to her daughter's apartment in the same complex. She denied any chest pain or palpitation. She denied any dizziness prior to the fall. No witnessed seizures. The patient states this is the 2nd fall episode over the last couple of months. CT head, neck, chest and abdomen done in the ED did not show any acute injury. EKG demonstrated sinus rhythm with nonspecific ST T wave changes. Blood work is showing hyponatremia and alkalosis. Patient is hospitalized for further as workup for syncope. Allergies hydrocortisone Allergy (Verified 11/07/18 05:01) Nausea/Vomiting Home Medications: Levothyroxine Sodium 50 mcg PO DAILY 11/07/18 lisinopriL [Lisinopril] 10 mg PO DAILY 11/07/18 Levalbuterol [Xopenex*] 1 puff IH Q4H 09/15/19 Metformin ER [Glucophage ER*] 1 tab PO DAILY 09/15/19 Mometasone/Formoterol [Dulera 200 Mcg/5 Mcg Inhaler] 2 puff IH BID #1 inhaler predniSONE [Deltasone] 10 mg PO BID #20 tab 09/17/19 - Past Medical/Surgical History Diabetic: No -: CHF -: COPD -: DMII -: Hypothyroid -: Hyperlipidemia -: Asthma -: Choley -: Eye sx X3 -: Colon surgery -: Cardiac stent -: PAD stent bilaterally - Family History Father Notes: parkinsons Brother -: Heart disease Notes: heart attack Mother -: Heart disease - Social History Smoking Status: Former smoker (Quit smoking about 1 month ago) Alcohol use: Yes CD- Drugs: No Caffeine use: Yes Review of Systems Other: General: No fever, no malaise, no unintentional weight loss. Eyes: No eye discharge, Respiratory: No cough, no shortness of breath. CVS: She reports chest pain with breathing, no palpitation, no lightheadedness. GI: No abdominal pain, no nausea no vomit, no constipation, no diarrhea. Genitourinary: No dysuria, no urinary frequency, no incontinence, no hematuria. Musculoskeletal: No joint pains, or joint swelling. Neurology: No headache, no asymmetric weakness, no problem with swallowing. Except as documented, all other systems reviewed and negative. Physical Examination - Physical Exam General: Alert, In no apparent distress, Oriented x3 HEENT: Atraumatic, Normocephalic, PERRLA, Mucous membr. moist/pink Neck: Supple, JVD not distended Respiratory: Diminished (No rhonchi or wheezes) Cardiovascular: No edema, Regular rate/rhythm, Normal S1 S2 Capillary refill: <2 Seconds Gastrointestinal: Normal bowel sounds, Soft and benign, Non-distended, No tenderness Musculoskeletal: No swelling, Tenderness (Lower sternum is tender to palpation) Integumentary: Other (Multiple bruises in the upper extremities) Neurological: Normal speech, Normal strength at 5/5 x4 extr - Studies Laboratory Data (last 24 hrs) 11/05/19 02:15: PT 10.8, INR 0.91 11/05/19 02:15: WBC 7.1, Hgb 13.8, Hct 42.2, Plt Count 192 11/05/19 02:15: Sodium 133 L, Potassium 4.4, BUN 22 H, Creatinine 0.79, Glucose 132 H, Magnesium 2.0, Total Bilirubin 0.5, AST 19, ALT 19, Alkaline Phosphatase 82 Assessment and Plan - Problems (Diagnosis) (1) Chronic respiratory failure with hypoxia and hypercapnia Current Visit: Yes Status: Acute (2) Fall Onset Date: 06/13/18 Current Visit: No Status: Resolved Qualifiers: Encounter type: initial encounter Qualified Code(s): W19.XXXA - Unspecified fall, initial encounter (3) Syncope and collapse Current Visit: Yes Status: Acute (4) Hyponatremia Onset Date: 11/07/18 Current Visit: No Status: Acute (5) Lung mass Current Visit: No Status: Acute (6) COPD (chronic obstructive pulmonary disease) Onset Date: 04/09/15 Current Visit: No Status: Chronic Qualifiers: - Plan Place under observation Trend troponin Obtained Echo Fall or syncope could be secondary to CO2 narcosis. Check arterial blood gas. Check carotid Doppler given history of peripheral vascular disease. High cardiac risk factors with personal history of CAD with stent. Nuclear stress test if troponin trend negative. Oxygen therapy Bronchodilators Patient failed to follow up with Dr. Black for further evaluation of the lung mass as planned during discharge from her previous hospitalization about 1 month ago. PT evaluation. - Advance Directives Does patient have a Living Will: Yes Does patient have a Durable POA for Healthcare: Yes
[2019-11-05 05:05] LABS: Arterial Blood Carboxyhemoglob 0.7 % (0-1.5); Blood Gas Oxyhemoglobin 94.7 % (94-97); Blood O2 Saturation 95.9 % (92-98.5)
[2019-11-05] MEDS ORDERED: ONDANSETRON 4 MG/2 ML VIAL IV PRN (05:09)
[2019-11-05] MEDS ORDERED: ACETAMINOPHEN 500 MG TAB PO PRN (05:09)
[2019-11-05 05:52] VITALS: BMI 22.0
[2019-11-05 06:10] LABS: Troponin I < 0.02 ng/mL (0.0-0.045)
[2019-11-05] MEDS: INSULIN -REGULAR HUMAN 50 UNIT/0.5 ML ML SQ SCH ×4 (07:30→21:00)
[2019-11-05] MEDS ORDERED: REGADENOSON 0.4 MG/5 ML SYR IV ONE (08:39)
--- NOTE | 2019-11-05 08:41 | RAD REPORT ---
EXAM DESCRIPTION: USCarotid Artery Bilateral11/05/2019 8:18 am CLINICAL HISTORY: Syncope COMPARISON: None FINDINGS: The velocity of the right internal carotid artery equals 114 cm/sec. The right ICA/CCA rat io 1.3 The velocity of the left internal carotid artery equals 92 cm/sec. The left ICA/CCA ratio 0.8 Mild to moderate plaque is present within the carotid arteries The vertebral arteries demonstrate antegrade flow IMPRESSION: Mild to moderate plaque within the carotid arteries without evidence of a hemodynamicall y significant stenosis NASCET criteria used. Mild 0-49% stenosis Moderate 50-69% stenosis Severe 70-99% stenosis
--- NOTE | 2019-11-05 09:25 | TREADPHA ---
DX: SYNCOPE Date of Study: 11/05/2019 Ht: 5 7 Wt: 140 lb 9 oz Consulting Physician: PRINCE MEDICATIONS: TYLENOL, PROVENTIL, HEPARIN, NOVOLIN-R, ZOFRAN HISTORY: COPD, DIABETES MELLITUS, CORONARY ARTERY DISEASE, FORMER SMOKER. PHYSICIAL EXAMINATION: RESTING B.P.: 164/65 RESTING H.R.: 78 RESTING EKG: SINUS, POSSIBLE LEFT VENTRICULAR HYPERTROPHY. PROTOCOL: LEXISCAN EXERCISE TIME: 3:30 B.P. AT [facility]AK STRESS: 141/53 IMPRESSION: LEXISCAN STRESS TEST PERFORMED. CARDIOLITE INJECTED PER PROTOCOL. NO ARRYTHMIAS NOTED. NO SUPRAVENTRICULAR TACHYCARDIA OR VENTRICULAR TACHYCARDIA NOTED. PATIENT EXPERIENCED BRIEF PERIOD OF CHEST PAIN THAT WAS RELIEVED WITHIN ONE MINUTE. TOLERATED PROCEDURE WELL. PLEASE SEE NUCLEAR MEDICINE REPORT. NON DIGANOSTIC EKG WITH STRESS.
[2019-11-05] MEDS: HEPARIN 5000 UNIT/ML 1 ML VIAL SQ SCH ×2 (09:42→16:18)
--- NOTE | 2019-11-05 10:12 | RAD REPORT ---
EXAM DESCRIPTION: CT - Head C Spine Cap Wo Con - 11/05/2019 3:01 am CLINICAL HISTORY: The patient is 79 years old and is Female; PAIN TECHNIQUE: Axial computed tomography images of the head/brain and cervical spine without intravenous contrast. Sagittal and coronal reformatted images were created and reviewed. This CT exam was pe rformed using one or more of the following dose reduction techniques: automated exposure control, a djustment of the mA and/or kV according to patient size, and/or use of iterative reconstruction techn ique. COMPARISON: No relevant prior studies available. FINDINGS: BRAIN: Diffuse cerebral atrophy is noted. There are nonspecific periventricular white ma tter changes, which are likely related to chronic small vessel disease. The villa-white differentiatio n is maintained. There are no extra-axial fluid collections or acute hemorrhage. VENTRICLES: There is diffuse prominence of the ventricles, which is likely related to central at rophy. SKULL: No acute fracture. SINUSES: Unremarkable as visualized. No acute sinusitis. MASTOID AIR CELLS: Unremarkable as visualized. No mastoid effusion. VERTEBRAE: The vertebral body heights and alignment are maintained. No acute fracture. DISCS/SPINAL CANAL/NEURAL FORAMINA: Minimal multilevel degenerative change of the spine is prese nt. SOFT TISSUES: The soft tissues are normal. VASCULATURE: Atherosclerosis of the vasculature is present. THYROID: The thyroid gland is diffusely enlarged. A discrete mass is not seen. LUNG APICES: Scarring within the lung apices is noted. IMPRESSION: 1. No acute intracranial findings visualized. 2. Nonspecific periventricular white matter changes, likely related to chronic small vessel disease . 3. Diffuse cerebral atrophy. 4. No fracture or malalignment of the cervical spine. 5. Diffusely enlarged thyroid suggesting goiter. EXAM DESCRIPTION: CT Chest, Abdomen and Pelvis Without Intravenous Contrast CLINICAL HISTORY: The patient is 79 years old and is Female; PAIN TECHNIQUE: Axial computed tomography images of the chest, abdomen and pelvis without intravenous con trast. Sagittal and coronal reformatted images were created and reviewed. This CT exam was perfor med using one or more of the following dose reduction techniques: automated exposure control, adjus tment of the mA and/or kV according to patient size, and/or use of iterative reconstruction technique . COMPARISON: No relevant prior studies available. FINDINGS: CHEST: LUNGS: Spiculated nodule within the right upper lobe anteriorly is present measuring approximate ly 1.4 cm. A large lobulated heterogeneous mass extending from the right hilum inferiorly to involve the superior segment of the right lower lobe is present measuring approximately 7.3 x 5.3 cm. When co mpared to prior CT report of exam performed on June 12, 2018, this has increased in size. Resulta nt right lower lobe atelectasis is present. The lungs are hyperinflated with mild bilateral centril obular emphysematous change. PLEURAL SPACE: Unremarkable. No significant effusion. No pneumothorax. HEART: No cardiomegaly. No pericardial effusion. THYROID: The thyroid is diffusely enlarged. ABDOMEN: LIVER: Homogeneous without focal mass. GALLBLADDER AND BILE DUCTS: Surgical clips are present in the right upper quadrant, consistent w ith previous cholecystectomy. PANCREAS: Unremarkable. No ductal dilation. SPLEEN: Unremarkable. ADRENALS: Unremarkable. No mass. KIDNEYS AND URETERS: No obstructing stones. No hydronephrosis. No perinephric fluid. STOMACH AND BOWEL: The stomach is distended with food contents. The small bowel is relatively no rmal in caliber. Stool is present throughout the colon. There is no mucosal thickening or evidence of bowel obstruction. PELVIS: APPENDIX: The appendix is normal in caliber without surrounding inflammation. BLADDER: Unremarkable. No stones. REPRODUCTIVE: Unremarkable as visualized. CHEST, ABDOMEN and PELVIS: INTRAPERITONEAL SPACE: Unremarkable. No significant fluid collection. No free air. BONES/JOINTS: Subtle buckle fractures of the left anterior fourth through sixth ribs are present . Degenerative change of the lower lumbar spine is present. The bones are osteopenic. No other frac ture is noted of the visualized axial and appendicular skeleton. SOFT TISSUES: The soft tissues are normal. VASCULATURE: Extensive atherosclerosis of the vasculature is present. Aneurysmal dilatation of the infrarenal abdominal aorta measuring 3.8 cm is present. There is no evidence to suggest rupture. LYMPH NODES: Mediastinal and hilar adenopathy is noted. IMPRESSION: 1. Large right hilar mass extending inferiorly with associated smaller right upper lob e spiculated mass. Findings are concerning for malignancy. When compared to prior CT report, the righ t hilar mass has increased in size. 2. Buckle fractures of the left anterior fourth through sixth ribs. 3. No evidence of solid organ injury on this noncontrasted CT of the chest, abdomen, and pelvis. 4. Diffusely enlarged thyroid suggesting goiter. No discrete nodule is noted on this noncontrasted exam. 5. Aneurysmal dilatation of the abdominal aorta. Recommend follow-up every 2 years. Reference: J Am Danny Radiol 2013;10:789-794. Electronically signed by: Lorena Chavez MD 11/05/2019 2:48 AM LIME MIXER TENDER Due to temporary technical issues with the PACS/Fluency reporting system, reports are being signed by the in house radiologist as a courtesy to ensure prompt reporting. The interpreting radiologist is f ully responsible for the content of the report.
[2019-11-05] MEDS: ALBUTEROL 2.5 MG/3 ML NEB SOL NEB SCH ×3 (10:15→20:20)
[2019-11-05] MEDS: IPRATROPIUM BROM 0.5MG/2.5ML NEB SCH ×3 (10:15→20:20)
--- NOTE | 2019-11-05 10:23 | EKG ---
Test Date: 2019-11-05 Test Time: 01:43:18 Library Serials Assistant: BETH MEASUREMENT RESULTS: Intervals: Rate: 95 SC: 144 QRSD: 76 QT: 362 QTc: 454 Elnora: P: 76 SC: 144 QRS: 32 T: 69 INTERPRETIVE STATEMENTS: Normal sinus rhythm Low voltage QRS Borderline ECG Compared to ECG 09/15/2019 02:26:26 Low QRS voltage now present Sinus arrhythmia no longer present Myocardial infarct finding no longer present Electronically Signed On 11-05-19 10:23:16 ELECTROMECHANICAL ASSEMBLY TECHNICIAN by Satinder Domingo
--- NOTE | 2019-11-05 10:31 | RAD REPORT ---
EXAM DESCRIPTION: NM - Rest Stress Cardiac Imaging - 11/05/2019 9:45 am CLINICAL HISTORY: Chest pain COMPARISON: None. TECHNIQUE: The patient was administered approximately 10 mCi of Tc 99m Sestamibi prior to resting SP ECT imaging of the heart. The patient was then administered approximately 30 mCi of Tc 99m Sestamibi following exercise or pharmacologic stress. Multiplanar SPECT images were reviewed. FINDINGS: The end diastolic volume is 79 ml, the end systolic volume is 28 ml, and the ejection frac tion is 65 %. Moderately large significant diminishment in activity is seen along the anterior wall inferiorly incl uding the apex. This does not change between rest and stress imaging. This is favored to be scarring rather than breast attenuation artifact. Correlation can be made with any EKG abnormalities. No stres s-induced ischemic changes are confirmed on this study. No other areas of possible scarring. IMPRESSION: No stress-induced ischemic change. Moderately large fixed defect anterior wall inferiorly, including the apex, favored to be scarring ra ther than breast attenuation artifact. Ventricular volumes and ejection fraction are still well within normal limits.
--- NOTE | 2019-11-05 11:18 | ECHO ---
HEIGHT: 5 ft 7 in WEIGHT: 140 lb 9 oz DATE OF STUDY: 11/05/[address]: hanna rinaldi 2-DIMENSIONAL: YES M.MODE: YES DOPPLER: YES COLOR FLOW: YES TDS: YES PORTABLE: NO DEFINITY: NO BUBBLE STUDY: NO DIAGNOSIS: SYNCOPE CARDIAC HISTORY: CATHERIZATION: YES SURGERY: NO PROSTHETIC VALVE: NO PACEMAKER: NO MEASUREMENTS (cm) DIASTOLIC (NORMALS) SYSTOLIC (NORMALS) IVSd 0.9 (0.6-1.2) LA Diam 3.1 (1.9-4.0) LVEF 65% LVIDd 4.2 (3.5-5.7) LVIDs 2.7 (2.0-3.5) %FS 35% LVPWd 1.1 (0.6-1.2) Ao Diam 2.9 (2.0-3.7) 2 DIMENSIONAL ASSESSMENT: RIGHT ATRIUM: NORMAL LEFT ATRIUM: NORMAL RIGHT VENTRICLE: NORMAL LEFT VENTRICLE: NORMAL TRICUSPID VALVE: NORMAL MITRAL VALVE: NORMAL PULMONIC VALVE: NORMAL AORTIC VALVE: SCLEROSIS PERICARDIAL EFFUSION: NONE AORTIC ROOT: NORMAL LEFT VENTRICULAR WALL MOTION: NORMAL DOPPLER/COLOR FLOW: NORMAL COMMENTS: NORMAL LEFT VENTRICULAR EJECTION FRACTION. AORTIC SCLEROSIS WITH NO AORTIC STENOSIS OR AORTIC REGURGITATION. TECHNICALLY DIFFICULT STUDY. TECHNOLOGIST: Titi DE LA CRUZ
[2019-11-05] MEDS: MORPHINE 2 MG/ML SYR IV PRN ×2 (15:38→22:00)
--- NOTE | 2019-11-05 15:40 | RAD REPORT ---
EXAM DESCRIPTION: RAD - Hand Right 2 View - 11/05/2019 3:10 pm CLINICAL HISTORY: fall and pain, pain primarily right index finger COMPARISON: No comparisons FINDINGS: An oblique fracture is present through the shaft of the second proximal phalanx. No signif icant distraction or angulation deformity. Middle and distal phalanges of the second digit are intact . Soft tissue swelling surrounds the fractured index finger. Elsewhere no fracture or acute bone finding identified. IMPRESSION: Fracture of the second proximal phalanx right hand without distraction or angulation def ormity.
[2019-11-06] MEDS: HEPARIN 5000 UNIT/ML 1 ML VIAL SQ SCH ×3 (00:37→16:23)
[2019-11-06] MEDS: ALBUTEROL 2.5 MG/3 ML NEB SOL NEB SCH ×4 (02:15→20:19)
[2019-11-06] MEDS: IPRATROPIUM BROM 0.5MG/2.5ML NEB SCH ×4 (02:15→20:19)
[2019-11-06 07:15] LABS: Absolute Lymphocytes (CBC) 1.2 K/uL (0.7-4.9); Basophils % 0.4 % (0-1.3); Hematocrit 41.7 % (36.0-45.0); Lymphocytes % 23.9 % (15.3-44.8); MPV 7.8 fL (7.6-11.3); RBC Red Blood Cell Count 4.53 M/uL (3.86-4.86)
[2019-11-06] MEDS: INSULIN -REGULAR HUMAN 50 UNIT/0.5 ML ML SQ SCH ×4 (07:30→21:00)
[2019-11-06 07:41] LABS: Magnesium 2.2 mg/dL (1.8-2.4); Phosphorus 3.9 mg/dL (2.5-4.9); Potassium 4.3 mmol/L (3.5-5.1)
[2019-11-06] MEDS: MORPHINE 2 MG/ML SYR IV PRN ×2 (08:04→12:05)
--- NOTE | 2019-11-06 12:51 | RAD REPORT ---
EXAM DESCRIPTION: RAD - Wrist Right 2 View - 11/06/2019 12:43 pm CLINICAL HISTORY: pain Pain COMPARISON: Hand Right 2 View dated 11/05/2019 FINDINGS: There is a subtle area of cortical buckling along the distal metaphysis of the radius with mild dorsal soft tissue swelling. This is possibly related to a mildly impacted nondisplaced fractu re. Recommend correlation with clinical point tenderness in this location.
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
--- NOTE | 2019-11-06 20:57 | EKG ---
Test Date: 2019-11-06 Test Time: 08:05:43 Graphics Manager: ENEIDA MEASUREMENT RESULTS: Intervals: Rate: 84 OR: 140 QRSD: 80 QT: 382 QTc: 451 Morley: P: 73 OR: 140 QRS: 33 T: 61 INTERPRETIVE STATEMENTS: Normal sinus rhythm Normal ECG Compared to ECG 11/05/2019 12:56:26 No significant changes Electronically Signed On 11-06-19 20:55:00 DRY CHAIN WORKER by Casper Jon
[2019-11-07] MEDS: HEPARIN 5000 UNIT/ML 1 ML VIAL SQ SCH ×2 (00:20→09:04)
[2019-11-07] MEDS: IPRATROPIUM BROM 0.5MG/2.5ML NEB SCH ×2 (01:43→07:42)
[2019-11-07] MEDS: ALBUTEROL 2.5 MG/3 ML NEB SOL NEB SCH ×2 (01:43→07:42)
--- NOTE | 2019-11-07 02:24 | DS ---
Hospital Course: This patient is an 79-year-old woman, who presented for fall. She has a history of COPD on home oxygen, numbness for which she was instructed to follow piece dye worker. In the ED, imaging study demonstrated no acute intracranial finding. No fracture of cervical spine. There is buckle fracture of the left anterior 4-6 ribs. The patient also complained of right hand finger pain. X-ray demonstrate nondisplaced fracture. The patient was treated with pain medications. Orthopedic doctor was consulted and put a splint on the right index finger. He instructed the patient to follow him in 2 weeks. Extensive workup was done regarding fall and syncope. Nuclear stress test unremarkable. Carotid ultrasound demonstrated parh-rm-xeyusomi stenosis. Echo demonstrated normal ejection fraction. This patient is doing much better today. She walked in the hallway with assistance. The patient does not want to go to rehab or SNF. She insists to go home. She was stable. She was then discharged to go home. The patient will follow orthopedic doctor in 2 weeks. Physical Examination: Vital Signs: On discharge, vitals stable. Temperature 97.3, pulse 76, respiratory rate 18, blood pressure 140/58, oxygen saturation 99% on room air. HEENT: Normocephalic, mild bruise around right eye. Chest: Clear to auscultation. No wheezing. Some mild tenderness on the left chest. Heart: Normal S1, S2. Regular rhythm and rate. Abdomen: Soft, nontender. Bowel sounds present. Extremities: The swelling and bruising on the right index finger is improving. Splint in position. Laboratory Data: WBC 5.2, hemoglobin 13.7, platelet 160. Sodium 133, potassium 4.3, creatinine 0.67, magnesium 2.2, cholesterol 250. Diagnoses: 1. Fall. 2. Multiple rib fracture. 3. Right index finger proximal phalanx fracture. 4. Right wrist nondisplaced, compacted fracture. 5. Chronic obstructive pulmonary disease. 6. Hypertension. 7. Numbness. Discharge Instructions: 1. Please follow with orthopedic doctor in 2 weeks. 2. Please follow piece dye worker as scheduled for lung mass. 3. Please follow PCP in 2 weeks. 4. Please call emergency room if having fall, worsening pain, or other concern. Discharge Medications: Please see medication list. Discharge Activity: As tolerated. Discharge Diet: Healthy-heart diet. I spent at least 30 minutes to discharge the patient. QT/MODL Voice ID: [id number] Report ID: [id number] [id number]
[2019-11-07] MEDS: INSULIN -REGULAR HUMAN 50 UNIT/0.5 ML ML SQ SCH (07:30)
[2019-11-07 08:51] VITALS: BP 135/62; TEMP 97.8
[2019-11-07 09:47] VITALS: O2SAT 92
== END 2019-11-07 10:09 | disposition home health service (06) ==
LOC: ER 01:39 → ERHOLD 04:20 → 4TH 04:42
PROVIDERS: ADMIT Internal Medicine; ATTEND Internal Medicine
DX: R55 Syncope and collapse (principal); S22.42XA Multiple fractures of ribs, left side, initial encounter for closed fracture; S62.101A Fracture of unspecified carpal bone, right wrist, initial encounter for closed fracture; S62.610A Displaced fracture of proximal phalanx of right index finger, initial encounter for closed fracture; E03.9 Hypothyroidism, unspecified; E78.5 Hyperlipidemia, unspecified; J96.22 Acute and chronic respiratory failure with hypercapnia; J96.21 Acute and chronic respiratory failure with hypoxia; E87.1 Hypo-osmolality and hyponatremia; R91.8 Other nonspecific abnormal finding of lung field; J44.9 Chronic obstructive pulmonary disease, unspecified; I11.0 Hypertensive heart disease with heart failure; I50.9 Heart failure, unspecified; W18.30XA Fall on same level, unspecified, initial encounter; Y92.009 Unspecified place in unspecified non-institutional (private) residence as the place of occurrence of the external cause; Z23 Encounter for immunization; Z95.5 Presence of coronary angioplasty implant and graft; Z99.81 Dependence on supplemental oxygen
CPT/HCPCS: 93005 ×3; 93017; 93306; 85025 ×2; 80048 ×2; 36415 ×2; 83735 ×2; 84100; 85610; 80061; 82947 ×9; 80076; 84443; 84484 ×6; 84439; 83880; 70450; 71250; 72125; 73120; 73100; 90471; 93880; 90714; 97110; 97116; 97161; 97530 ×4; 94640; 82805; 94760 ×6; 78452; 96374; 99285; J1644 ×6; J2270 ×4; J2785; G0378 ×5; A9500

== ENCOUNTER 2019-11-17 23:07 | Observation (INO) | payer OTHER ==
[2019-11-17] MEDS ORDERED: IPRATROPIUM BROM 0.5MG/2.5ML ONE ×2 (23:33→23:36)
[2019-11-17] MEDS ORDERED: ALBUTEROL 2.5 MG/3 ML NEB SOL ONE (23:33)
[2019-11-17] MEDS ORDERED: METHYLPREDNISOLONE 125 MG INJ ONE (23:36)
[2019-11-17] MEDS ORDERED: LEVALBUTEROL 0.63 MG/3 ML NEB ONE (23:41)
[2019-11-18 00:12] LABS: Absolute Lymphocytes (CBC) 1.2 K/uL (0.7-4.9); Basophils % 0.5 % (0-1.3); Hematocrit 39.9 % (36.0-45.0); Lymphocytes % 22.8 % (15.3-44.8); MPV 7.8 fL (7.6-11.3); RBC Red Blood Cell Count 4.25 M/uL (3.86-4.86)
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
[2019-11-18] MEDS ORDERED: DOCUSATE NA 100 MG CAP PO PRN (03:06)
[2019-11-18] MEDS ORDERED: ONDANSETRON 4 MG/2 ML VIAL IV PRN (03:06)
[2019-11-18] MEDS ORDERED: ALBUTEROL 2.5 MG/3 ML NEB SOL NEB PRN (03:06)
[2019-11-18] MEDS ORDERED: ACETAMINOPHEN 325 MG TABLET PO PRN (03:06)
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
[2019-11-18] MEDS ORDERED: GLUCAGON 1 MG/VIAL IM PRN (04:51)
[2019-11-18] MEDS ORDERED: D50W 25 GM/50 ML SYRINGE/VIAL IV PRN (04:51)
[2019-11-18 07:43] LABS: Absolute Lymphocytes (CBC) 0.3 K/uL (0.7-4.9); Basophils % 0.3 % (0-1.3); Hematocrit 39.1 % (36.0-45.0); Lymphocytes % 7.7 % (15.3-44.8); MPV 7.9 fL (7.6-11.3); RBC Red Blood Cell Count 4.18 M/uL (3.86-4.86)
[2019-11-18 08:01] LABS: Albumin 3.1 g/dL (3.4-5.0); Bilirubin Total 0.4 mg/dL (0.2-1.0); Potassium 4.4 mmol/L (3.5-5.1); Protein, Total 6.4 g/dL (6.4-8.2)
[2019-11-18 08:08] LABS: CKMB Creatine Kinase MB 1.1 ng/mL (0.3-3.6); Troponin I < 0.02 ng/mL (0.0-0.045)
[2019-11-18] MEDS: INSULIN -REGULAR HUMAN 50 UNIT/0.5 ML ML SQ SCH ×4 (08:24→21:22)
[2019-11-18] MEDS: ASPIRIN EC 81 MG TAB PO SCH (08:24)
--- NOTE | 2019-11-18 08:45 | RAD REPORT ---
EXAM DESCRIPTION: RAD - Wrist Right 2 View - 11/18/2019 1:48 am CLINICAL HISTORY: Right wrist pain FINDINGS: Limited two view series obtained Cortical regularity involves the posterior aspect of the radial metaphysis which may indicate a subac [place] nondisplaced fracture. No dislocation Osteoporosis
--- NOTE | 2019-11-18 08:48 | RAD REPORT ---
EXAM DESCRIPTION: Ute Single View11/18/2019 1:37 am CLINICAL HISTORY: Shortness of breath COMPARISON: August 2019 FINDINGS: Approximately 9 centimeter right lower lobe opacity probably minimally enlarged Left lung appears clear Lungs are hyperaerated The heart is normal size IMPRESSION: 9 centimeter right lower lobe opacity presumably neoplasm appears minimally enlarged
[2019-11-18] MEDS: ALBUTEROL 2.5 MG/3 ML NEB SOL NEB SCH ×3 (08:55→21:30)
[2019-11-18] MEDS: IPRATROPIUM BROM 0.5MG/2.5ML NEB SCH ×3 (08:55→21:30)
[2019-11-18] MEDS ORDERED: METHYLPREDNISOLONE 40 MG INJ IV SCH (09:00)
[2019-11-18 09:05] LABS: Blood Morphology Comment NOT SEEN (NOT SEEN); Platelet Estimate ADEQ
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
[2019-11-18 16:00] LABS: CKMB Creatine Kinase MB 1.4 ng/mL (0.3-3.6); Troponin I < 0.02 ng/mL (0.0-0.045)
[2019-11-18 19:40] LABS: CKMB Creatine Kinase MB 1.2 ng/mL (0.3-3.6); Troponin I < 0.02 ng/mL (0.0-0.045)
[2019-11-19 02:32] LABS: Urine Appearance CLEAR; Urine Bilirubin NEGATIVE (NEG); Urine Blood NEGATIVE (NEG); Urine Color YELLOW; Urine Glucose NEGATIVE (NEG); Urine Protein NEGATIVE (NEG); Urine Specific Gravity 1.015 (1.005-1.030); Urine Urobilinogen 0.2 mg/dL (0.2-1.0); Urine pH 7.5 (5.0-7.0)
[2019-11-19] MEDS: IPRATROPIUM BROM 0.5MG/2.5ML NEB SCH ×3 (02:40→14:55)
[2019-11-19] MEDS: ALBUTEROL 2.5 MG/3 ML NEB SOL NEB SCH ×3 (02:40→14:55)
[2019-11-19 02:43] LABS: Urine Microscopic Reflex NO UMIC
[2019-11-19 04:53] LABS: Absolute Lymphocytes (CBC) 1.3 K/uL (0.7-4.9); Basophils % 0.3 % (0-1.3); Hematocrit 39.1 % (36.0-45.0); MPV 7.6 fL (7.6-11.3); Protime INR 0.91; RBC Red Blood Cell Count 4.19 M/uL (3.86-4.86)
[2019-11-19 06:24] VITALS: BMI 22.1
[2019-11-19] MEDS: INSULIN -REGULAR HUMAN 50 UNIT/0.5 ML ML SQ SCH ×3 (07:30→16:14)
[2019-11-19] MEDS: ASPIRIN EC 81 MG TAB PO SCH (08:22)
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
[2019-11-19 15:49] VITALS: O2SAT 98
[2019-11-19 16:36] VITALS: BP 181/78; TEMP 97.2
== END 2019-11-19 16:57 | disposition home or self-care (01) ==
LOC: ER 23:07 → ERHOLD 11-18 02:08 → 4TH 11-18 03:20
PROVIDERS: ADMIT Internal Medicine; ATTEND Internal Medicine
DX: J44.1 Chronic obstructive pulmonary disease with (acute) exacerbation (principal); Z99.81 Dependence on supplemental oxygen; E11.9 Type 2 diabetes mellitus without complications; E03.9 Hypothyroidism, unspecified; I10 Essential (primary) hypertension; E78.5 Hyperlipidemia, unspecified; R91.8 Other nonspecific abnormal finding of lung field
CPT/HCPCS: 36415; 71045; 80048; 80053; 81003; 82553; 82947; 83036; 83735; 83880; 84443; 84484; 85025; 85610; 87804; 96374; 99285; G0378; J2920; J2930

== ENCOUNTER 2019-12-25 09:07 | Emergency (ER) | payer OTHER ==
[2019-12-25] MEDS ORDERED: FUROSEMIDE 40 MG/4 ML VIAL ONE (09:47)
[2019-12-25 10:04] LABS: Absolute Lymphocytes (CBC) 1.2 K/uL (0.7-4.9); Basophils % 0.5 % (0-1.3); Hematocrit 38.2 % (36.0-45.0); Lymphocytes % 20.1 % (15.3-44.8); MPV 7.7 fL (7.6-11.3); RBC Red Blood Cell Count 4.09 M/uL (3.86-4.86)
[2019-12-25 10:08] LABS: Protime INR 0.89
[2019-12-25 10:27] LABS: ALT/SGPT 12 U/L (12-78); AST/SGOT 17 U/L (15-37); Albumin 3.4 g/dL (3.4-5.0); Alkaline Phosphatase 107 U/L (45-117); BUN Blood Urea Nitrogen 25 mg/dL (7-18); Bicarbonate 40 mmol/L (21-32); Bilirubin Direct 0.1 mg/dL (0-0.2); Bilirubin Total 0.4 mg/dL (0.2-1.0); CKMB Creatine Kinase MB 2.4 ng/mL (0.3-3.6); Creatine Phosphokinase 72 U/L (26-192); Glucose Level 133 mg/dL (74-106); Lipase 147 U/L (73-393); Magnesium 2.3 mg/dL (1.8-2.4); NT PRO-BNP 349 pg/mL (<450); Potassium 4.2 mmol/L (3.5-5.1); Protein, Total 7.1 g/dL (6.4-8.2); Sodium Level 136 mmol/L (136-145); Troponin (Emerg Dept Use Only) < 0.02 ng/mL (0.0-0.045)
--- NOTE | 2019-12-25 11:05 | EDPHYS ---
Physician Documentation [facility] Name: Radha Limon Age: 79 yrs Sex: Female : 1940 Arrival Date: 12/25/2019 Time: 09:09 Bed 8 Private MD: ED Physician Louie Valadez HPI: 12/24 09:50 This 79 yrs old Female presents to ER via EMS with complaints of Leg Swelling.ma2 09:50 The patient has shortness of breath at rest. Onset: The symptoms/episode began/occurred ma2 gradually, 3 day(s) ago. Duration: The symptoms are chronic. Associated signs and symptoms: Pertinent negatives: productive cough, dizziness, hemoptysis, nausea. Severity of symptoms: At their worst the symptoms were mild in the emergency department the symptoms are unchanged. The patient has not experienced similar symptoms in the past, The patient has experienced similar episodes in the past. not taking her lasix . Historical: - Allergies: :18 Hydrocortisone; bp - Home Meds: :18 Unable to obtain [Active]; bp - PMHx: 09:18 CHF; COPD; Diabetes - NIDDM; Emphysema; Hyperlipidemia; Hypertension; Hypothyroidism; bp Pneumonia; - Immunization history:: Adult Immunizations up to date. - Social history:: Smoking status: Patient reports the use of cigarette tobacco products, unknown amount Patient/guardian denies using alcohol, street drugs, The patient lives with family. - Family history:: not pertinent. ROS: 09:50 Constitutional: Negative for fever, chills, and weight loss. ma2 09:50 All other systems are negative. Exam: 09:50 Constitutional: This is a well developed, well nourished patient who is awake, alert, ma2 and in no acute distress. Head/Face: Normocephalic, atraumatic. Eyes: Pupils equal round and reactive to light, extra-ocular motions intact. Lids and lashes normal. Conjunctiva and sclera are non-icteric and not injected. Cornea within normal limits. Periorbital areas with no swelling, redness, or edema. ENT: Nares patent. No nasal discharge, no septal abnormalities noted. Tympanic membranes are normal and external auditory canals are clear. Oropharynx with no redness, swelling, or masses, exudates, or evidence of obstruction, uvula midline. Mucous membranes moist. Neck: Trachea midline, no thyromegaly or masses palpated, and no cervical lymphadenopathy. Supple, full range of motion without nuchal rigidity, or vertebral point tenderness. No Meningismus. Chest/axilla: Normal chest wall appearance and motion. Nontender with no deformity. No lesions are appreciated. Cardiovascular: Regular rate and rhythm with a normal S1 and S2. No gallops, murmurs, or rubs. Normal PMI, no JVD. No pulse deficits. Respiratory: Lungs have equal breath sounds bilaterally, clear to auscultation and percussion. No rales, rhonchi or wheezes noted. No increased work of breathing, no retractions or nasal flaring. Abdomen/GI: Soft, non-tender, with normal bowel sounds. No distension or tympany. No guarding or rebound. No evidence of tenderness throughout. Skin: Warm, dry with normal turgor. Normal color with no rashes, no lesions, and no evidence of cellulitis. MS/ Extremity: + LE edema 2+ equal bilat, Pulses equal, no cyanosis. Neurovascular intact. Full, normal range of motion. Neuro: Awake and alert, GCS 15, oriented to person, place, time, and situation. Cranial nerves II-XII grossly intact. Motor strength 5/5 in all extremities. Sensory grossly intact. Cerebellar exam normal. Normal gait. Vital Signs: 09:09 BP 153 / 74; Pulse 92; Resp 20; Temp 98; Pulse Ox 98% on 3 lpm NC; Weight 68.04 kg; bp 09:59 BP 107 / 71; Pulse 94; Resp 24; Pulse Ox 99% on 3 lpm NC; bp 10:34 BP 151 / 69; Pulse 87; Resp 22; Pulse Ox 98% on 3 lpm NC; bp 11:32 BP 109 / 98; Pulse 89; Resp 18; Pulse Ox 98% on R/A; rb1 MDM: 09:12 Patient medically screened. ma2 09:50 Differential diagnosis: Anemia asthma, CHF exacerbation, reactive airway disease. ma2 Antibiotic administration: Not indicated. Data reviewed: vital signs, nurses notes. 11:03 Counseling: I had a detailed discussion with the patient and/or guardian regarding: the ma2 historical points, exam findings, and any diagnostic results supporting the discharge/admit diagnosis, the presence of at least one elevated blood pressure reading (>120/80) during this emergency department visit, the need for outpatient follow up. 12/24 09:29 Order name: BMP; Complete Time: 10:49 12/24 09:29 Order name: CBC with Diff; Complete Time: 10:49 12/24 09:29 Order name: Ckmb; Complete Time: 10:49 12/24 09:29 Order name: CPK; Complete Time: 10:49 12/24 09:29 Order name: Hepatic Function; Complete Time: 10:49 12/24 09:29 Order name: Lipase; Complete Time: 10:49 12/24 09:29 Order name: Magnesium; Complete Time: 10:49 12/24 09:29 Order name: NT PRO-BNP; Complete Time: 10:49 12/24 09:29 Order name: PT-INR; Complete Time: 10:49 12/24 09:29 Order name: Ptt, Activated; Complete Time: 10:49 12/24 09:29 Order name: Troponin (emerg Dept Use Only); Complete Time: 10:49 12/24 09:29 Order name: EKG; Complete Time: 09:31 12/24 09:29 Order name: Cardiac monitoring; Complete Time: 09:31 12/24 09:29 Order name: EKG - Nurse/Tech; Complete Time: 09:31 12/24 09:29 Order name: IV Saline Lock; Complete Time: 09:58 12/24 09:29 Order name: Labs collected and sent; Complete Time: 09:59 12/24 09:29 Order name: O2 Per Protocol; Complete Time: 09:31 12/24 09:29 Order name: O2 Sat Monitoring; Complete Time: 09:31 ma2 Administered Medications: 09:50 Drug: Lasix 40 mg Route: IVP; Site: left forearm; bp 10:22 Follow up: Response: No adverse reaction bp Disposition: 12/25/19 11:04 Discharged to Home. Impression: Chronic systolic (congestive) heart failure. - Condition is Stable. - Discharge Instructions: Heart Failure. - Prescriptions for Lasix 20 mg Oral Tablet - take 1 tablet by ORAL route once daily; 20 tablet. - Medication Reconciliation Form, Thank You Letter, Antibiotic Education, Prescription Opioid Use form. - Follow up: Private Physician; When: Tomorrow; Reason: Continuance of care. Signatures: Dispatcher [employer] Evelin Shah, RN RN rb1 Ronald Roque RN RN bp Louie Valadez MD MD ma2 Corrections: (The following items were deleted from the chart) 12:19 11:04 12/25/2019 11:04 Discharged to Home. Impression: Chronic systolic (congestive) rb1 heart failure. Condition is Stable. Forms are Medication Reconciliation Form, Thank You Letter, Antibiotic Education, Prescription Opioid Use. Follow up: Private Physician; When: Tomorrow; Reason: Continuance of care. ma2
--- NOTE | 2019-12-25 11:05 | ER ---
Nurse's Notes [facility] Name: Radha Limon Age: 79 yrs Sex: Female : 1940 Arrival Date: 12/25/2019 Time: 09:09 Bed 8 Private MD: Diagnosis: Chronic systolic (congestive) heart failure Presentation: 12/24 09:09 Chief complaint: EMS states: SOB AND BLE EDEMA. Coronavirus screen: The patient has NOT bp traveled to [place] in the past 14 days. Proceed with normal triage procedures. The patient has NOT had contact with known and/or suspected case of Coronavirus. Proceed with normal triage procedures. Ebola Screen: No symptoms or risks identified at this time. Initial Sepsis Screen: Does the patient meet any 2 criteria? No. Patient's initial sepsis screen is negative. Does the patient have a suspected source of infection? Yes: Productive cough/pneumonia. Risk Assessment: Do you want to hurt yourself or someone else? Patient reports no desire to harm self or others. 09:09 Method Of Arrival: EMS: [facility] bp 09:09 Acuity: CRISTHIAN 3 bp 09:09 Care prior to arrival: Glucose check: 124. bp Triage Assessment: 09:10 General: Appears in no apparent distress. comfortable, Behavior is cooperative, bp appropriate for age, anxious. Pain: Denies pain. EENT: No deficits noted. Neuro: No deficits noted. Cardiovascular: Rhythm is sinus rhythm. Respiratory: Airway is patent Respiratory effort is even, labored, Respiratory pattern is symmetrical, hyperventilation Breath sounds with wheezes bilaterally. GI: No signs and/or symptoms were reported involving the gastrointestinal system. : No signs and/or symptoms were reported regarding the genitourinary system. Derm: No deficits noted. Musculoskeletal: No deficits noted. Historical: - Allergies: 09:18 Hydrocortisone; bp - Home Meds: :18 Unable to obtain [Active]; bp - PMHx: 09:18 CHF; COPD; Diabetes - NIDDM; Emphysema; Hyperlipidemia; Hypertension; Hypothyroidism; bp Pneumonia; - Immunization history:: Adult Immunizations up to date. - Social history:: Smoking status: Patient reports the use of cigarette tobacco products, unknown amount Patient/guardian denies using alcohol, street drugs, The patient lives with family. - Family history:: not pertinent. Screenin:10 Abuse screen: Denies threats or abuse. Denies injuries from another. Nutritional bp screening: No deficits noted. Tuberculosis screening: No symptoms or risk factors identified. Fall Risk None identified. Assessment: 09:10 General: SEE TRIAGE NOTE. bp 09:59 Reassessment: VS STABLE ON MONITOR. PT STATES NO ACUTE S/S AT THIS TIME. bp 10:34 Reassessment: PT OUT OF BED REPEATEDLY TO B/S COMMODE, EFFECTIVELY DIURESING. bp MAINTAINING SAT WITH EXERTION AND 3LNC. 11:12 Reassessment: I tried to call the [phone] for transportation home and it was the rb1 wrong number. 11:32 Reassessment: Patient appears in no apparent distress at this time. Patient and/or rb1 family updated on plan of care and expected duration. Pain level reassessed. Patient is alert, oriented x 3, equal unlabored respirations, skin warm/dry/pink. 11:35 Reassessment: EMS TRANSPORT PENDING, NO FAMILY AVAILABLE. bp Vital Signs: 09:09 BP 153 / 74; Pulse 92; Resp 20; Temp 98; Pulse Ox 98% on 3 lpm NC; Weight 68.04 kg; bp 09:59 BP 107 / 71; Pulse 94; Resp 24; Pulse Ox 99% on 3 lpm NC; bp 10:34 BP 151 / 69; Pulse 87; Resp 22; Pulse Ox 98% on 3 lpm NC; bp 11:32 BP 109 / 98; Pulse 89; Resp 18; Pulse Ox 98% on R/A; rb1 ED Course: 09:09 Patient arrived in ED. bp 09:10 Arm band placed on. bp 09:10 Patient has correct armband on for positive identification. Bed in low position. Call bp light in reach. Side rails up X2. 09:11 Triage completed. bp 09:12 Louie Valadez MD is Attending Physician. ma2 09:30 Ronald Roque, MIKAL is Primary Nurse. bp 09:50 Inserted saline lock: 22 gauge in left forearm, using aseptic technique. Blood bp collected. 11:34 No provider procedures requiring assistance completed. IV discontinued, intact, rb1 bleeding controlled, No redness/swelling at site. Pressure dressing applied. Administered Medications: 09:50 Drug: Lasix 40 mg Route: IVP; Site: left forearm; bp 10:22 Follow up: Response: No adverse reaction bp Outcome: 11:04 Discharge ordered by . andrew 12:05 Discharged to home via ambulance. rb1 12:05 Condition: stable 12:05 Discharge instructions given to patient, Instructed on discharge instructions, follow up and referral plans. medication usage, Demonstrated understanding of instructions, follow-up care, medications, Prescriptions given X 1. 12:05 Patient left the ED. rb1 Signatures: Evelin Reese RN RN rb1 Ronald Roque RN RN bp Louie Valadez MD MD ma2 Corrections: (The following items were deleted from the chart) 12:20 12:19 Patient left the ED. rb1 rb1
--- NOTE | 2019-12-25 12:22 | EKG ---
Test Date: 2019-12-25 Test Time: 09:15:37 Press Worker Helper: ENEIDA MEASUREMENT RESULTS: Intervals: Rate: 87 VT: 136 QRSD: 80 QT: 386 QTc: 464 [place]: P: 60 VT: 136 QRS: 14 T: 46 INTERPRETIVE STATEMENTS: Sinus rhythm with premature atrial complexes with aberrant conduction Otherwise normal ECG Compared to ECG 11/06/2019 08:05:43 Atrial premature complex(es) now present Aberrant conduction of supraventricular beat(s) now present Electronically Signed On 12-25-19 12:21:18 HONEY BLENDER by Casper Jon
[2019-12-25 12:58] VITALS: TEMP 98
[2019-12-25 13:04] VITALS: O2SAT 98
[2019-12-25 13:06] VITALS: BP 109/98
== END 2019-12-25 12:19 | disposition home or self-care (01) ==
LOC: ER 09:07
DX: I50.22 Chronic systolic (congestive) heart failure (principal); I10 Essential (primary) hypertension; Z88.8 Allergy status to other drugs, medicaments and biological substances; Z72.0 Tobacco use
CPT/HCPCS: 93005; 85025; 80048; 36415; 83735; 82550; 85610; 80076; 85730; 84484; 82553; 83690; 83880; 96374; 99284; J1940

== ENCOUNTER 2019-12-31 11:35 | Inpatient (IN) | payer OTHER ==
[2019-12-31 12:16] LABS: Absolute Lymphocytes (CBC) 0.8 K/uL (0.7-4.9); Basophils % 0.3 % (0-1.3); Hematocrit 38.3 % (36.0-45.0); Lymphocytes % 18.1 % (15.3-44.8); MPV 7.7 fL (7.6-11.3); RBC Red Blood Cell Count 4.08 M/uL (3.86-4.86)
[2019-12-31] MEDS ORDERED: LEVALBUTEROL 1.25 MG/3 ML NEB ONE (12:16)
[2019-12-31] MEDS ORDERED: FUROSEMIDE 20 MG/ 2ML VIAL ONE (12:16)
[2019-12-31] MEDS ORDERED: LORazepam 2 MG/ML VIAL ONE (12:28)
[2019-12-31 12:32] LABS: BUN Blood Urea Nitrogen 20 mg/dL (7-18); Bicarbonate 39 mmol/L (21-32); Glucose Level 135 mg/dL (74-106); NT PRO-BNP 330 pg/mL (<450); Potassium 4.2 mmol/L (3.5-5.1); Sodium Level 131 mmol/L (136-145); Troponin (Emerg Dept Use Only) < 0.02 ng/mL (0.0-0.045)
--- NOTE | 2019-12-31 13:04 | RAD REPORT ---
EXAM DESCRIPTION: RAD - Chest Single View - 12/31/2019 12:58 pm CLINICAL HISTORY: Cough;COPD;Dyspnea Chest pain. COMPARISON: Chest Single View dated 11/18/2019; Chest Single View dated 09/15/2019; Chest Single View dated 02/07/2019; Chest Single View dated 11/06/2018 FINDINGS: Portable technique limits examination quality. 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 Adva nced COPD is present. The heart is mildly enlarged. No displaced fractures.
--- NOTE | 2019-12-31 13:15 | ER ---
Nurse's Notes [facility] Name: Radha Limon Age: 79 yrs Sex: Female : 1940 Arrival Date: 12/31/2019 Time: 11:39 Bed 20 Private MD: Diagnosis: Chronic obstructive pulmonary disease with (acute) exacerbation;Lymphedema, not elsewhere classified Presentation: 12/30 11:41 Chief complaint: EMS states: Worsening SOB and bilateral lower leg swelling x 2 weeks. hb BP 139/72, R 40s, SpO2 92% on 3L home O2. Coronavirus screen: The patient has NOT traveled to a country currently being monitored by the [facility] within the last 14 days. The patient has NOT had contact with any known and/or suspected case of coronavirus. Proceed with normal triage procedures. Ebola Screen: No symptoms or risks identified at this time. Risk Assessment: Do you want to hurt yourself or someone else? Patient reports no desire to harm self or others. 11:41 Method Of Arrival: EMS: [facility] hb 11:41 Acuity: CRISTHIAN 2 hb 11:44 Initial Sepsis Screen: Does the patient meet any 2 criteria? RR > 20 per min. HR > 90 hb bpm. Yes Does the patient have a suspected source of infection? No. Patient's initial sepsis screen is negative. Historical: - Allergies: 11:45 Hydrocortisone; hb 11:48 PENICILLINS; hb - Home Meds: 11:45 albuterol sulfate inhalation Inhl [Active]; Lasix Oral [Active]; Metformin Oral hb [Active]; - PMHx: 11:45 CHF; COPD; Diabetes - NIDDM; Emphysema; Hyperlipidemia; Hypertension; Hypothyroidism; hb Pneumonia; - Immunization history:: Adult Immunizations up to date. - Social history:: Smoking status: Patient denies any tobacco usage or history of. - Family history:: not pertinent. - Hospitalizations: : No recent hospitalization is reported. Screenin:46 Abuse screen: Denies threats or abuse. Denies injuries from another. Nutritional hb screening: No deficits noted. Tuberculosis screening: No symptoms or risk factors identified. Fall Risk None identified. Assessment: 11:45 General: Appears distressed, Behavior is cooperative, anxious. Pain: Pain currently is hb 8 out of 10 on a pain scale. Neuro: Level of Consciousness is awake, alert, obeys commands, Oriented to person, place, time, situation. Cardiovascular: Capillary refill < 3 seconds Patient's skin is warm and dry. Rhythm is sinus tachycardia. Respiratory: Airway is patent Respiratory effort is labored, Respiratory pattern is tachypnea Breath sounds are coarse. GI: No signs and/or symptoms were reported involving the gastrointestinal system. : No signs and/or symptoms were reported regarding the genitourinary system. EENT: No signs and/or symptoms were reported regarding the EENT system. Derm: 12:11 Reassessment: RTat bedside for BIPAP placement. BIPAP 12/5, R18, 30% FiO2. hb 13:45 Reassessment: Patient and/or family updated on plan of care and expected duration. Pain hb level reassessed. Pt remains on BIPAP, admission ordered, awaiting room assignment at this time. 14:30 Reassessment: No changes from previously documented assessment. Patient and/or family hb updated on plan of care and expected duration. Pain level reassessed. 15:04 Reassessment: Attempted to call report to floor, room not assigned to nurse at this hb time. [employer] notified. Vital Signs: 11:41 BP 154 / 71; Pulse 92; Resp 40; Temp 97.7; Pulse Ox 93% on 3 lpm NC; Weight 63.5 kg; hb Height 5 ft. 6 in. (167.64 cm); Pain 9/10; 12:15 BP 120 / 78; Pulse 85; Resp 38; Pulse Ox 93% on 30% BiPAP; hb 13:00 BP 140 / 76; Pulse 82; Resp 24; Pulse Ox 96% on 30% BiPAP; hb 14:00 BP 156 / 86; Pulse 88; Resp 24; Pulse Ox 93% on 30% BiPAP; hb 15:00 BP 151 / 81; Pulse 83; Resp 22; Pulse Ox 94% on 30% BiPAP; hb 11:41 Body Mass Index 22.60 (63.50 kg, 167.64 cm) hb ED Course: 11:39 Patient arrived in ED. mr 11:39 Taye Addison MD is Attending Physician. rn 11:40 Margie Jacob, MIKAL is Primary Nurse. hb 11:43 Triage completed. hb 11:46 Arm band placed on. hb 11:46 Patient has correct armband on for positive identification. Bed in low position. Call hb light in reach. Side rails up X 1. 12:12 BIPAP Sent. hb 13:03 XRAY CXR (1 view) In Process Unspecified. EDMS 13:14 Owen Mantilla PA is Hospitalizing Provider. rn 13:30 EKG done, by ED staff, reviewed by Taye Addison MD. 3 13:39 Hospitalizing Provider role handed off by Owen Mantilla PA 13:39 Miguel Atkinson MD is Hospitalizing Provider. ss Administered Medications: 12:17 Drug: Xopenex (3) 1.25 mg Route: Inhalation; hb 12:27 Drug: Lasix 40 mg Route: IVP; Site: left forearm; hb 13:02 Follow up: Response: No adverse reaction hb 12:29 Drug: Ativan 0.25 mg Route: IVP; Site: left forearm; hb 13:00 Follow up: Response: No adverse reaction hb 13:47 Drug: SOLU-Medrol 125 mg Route: IVP; Site: left forearm; hb Outcome: 13:15 Decision to Hospitalize by Provider. rn 15:55 Patient left the ED. ph Signatures: Dispatcher [employer] EDIN KenneyRadha Roman, MD MD rn Smirch, Shelby, RN RN ss Hall, Patricia, RN RN Margie Jacob RN RN Angelica Lee [facility]
--- NOTE | 2019-12-31 13:15 | EDPHYS ---
Physician Documentation [facility] Name: Radha Limon Age: 79 yrs Sex: Female : 1940 Arrival Date: 12/31/2019 Time: 11:39 Bed 20 Private MD: ED Physician Taye Addison HPI: 12/30 11:49 This 79 yrs old Female presents to ER via EMS with complaints of Leg rn Swelling, Shortness Of Breath. 11:49 The patient has shortness of breath at rest, with light activity. Onset: The rn symptoms/episode began/occurred 3 day(s) ago. Duration: The symptoms are continuous. The patient's shortness of breath is aggravated by coughing, light activity, is alleviated by nothing. Severity of symptoms: At their worst the symptoms were moderate in the emergency department the symptoms are unchanged. The patient has experienced similar episodes in the past. Reports increased sob and swelling for 3 days, no fever, reports doesn't take lasix at home, breathing treatments not helping. . Historical: - Allergies: 11:45 Hydrocortisone; hb 11:48 PENICILLINS; hb - Home Meds: 11:45 albuterol sulfate inhalation Inhl [Active]; Lasix Oral [Active]; Metformin Oral hb [Active]; - PMHx: 11:45 CHF; COPD; Diabetes - NIDDM; Emphysema; Hyperlipidemia; Hypertension; Hypothyroidism; hb Pneumonia; - Immunization history:: Adult Immunizations up to date. - Social history:: Smoking status: Patient denies any tobacco usage or history of. - Family history:: not pertinent. - Hospitalizations: : No recent hospitalization is reported. ROS: 11:49 Constitutional: Negative for fever, chills, and weight loss, Eyes: Negative for injury, rn pain, redness, and discharge, Neck: Negative for injury, pain, and swelling, Cardiovascular: Negative for chest pain, palpitations, + edema Respiratory: + sob and cough Abdomen/GI: Negative for abdominal pain, nausea, vomiting, diarrhea, and constipation, MS/Extremity: Negative for injury and deformity, Skin: Negative for injury, rash, and discoloration, Neuro: Negative for headache, weakness, numbness, tingling, and seizure. Exam: 11:49 Constitutional: This is a well developed, well nourished patient who is awake, alert, rn sitting upright with moderate resp distress Head/Face: Normocephalic, atraumatic. ENT: No stridor or swelling Cardiovascular: Regular rate and rhythm. No pulse deficits. Respiratory: + tachypnea with diffuse wheezing, diminished breath sounds bilateral bases Abdomen/GI: soft, non-tender MS/ Extremity: Pulses equal, no cyanosis. Neurovascular intact. Full, normal range of motion. Equal circumference. 2+ pitting edema bilateral lower ext Neuro: Awake and alert, GCS 15, oriented to person, place, time, and situation. Cranial nerves II-XII grossly intact. Motor strength 5/5 in all extremities. Sensory grossly intact. Vital Signs: 11:41 BP 154 / 71; Pulse 92; Resp 40; Temp 97.7; Pulse Ox 93% on 3 lpm NC; Weight 63.5 kg; hb Height 5 ft. 6 in. (167.64 cm); Pain 9/10; 12:15 BP 120 / 78; Pulse 85; Resp 38; Pulse Ox 93% on 30% BiPAP; hb 13:00 BP 140 / 76; Pulse 82; Resp 24; Pulse Ox 96% on 30% BiPAP; hb 14:00 BP 156 / 86; Pulse 88; Resp 24; Pulse Ox 93% on 30% BiPAP; hb 15:00 BP 151 / 81; Pulse 83; Resp 22; Pulse Ox 94% on 30% BiPAP; hb 11:41 Body Mass Index 22.60 (63.50 kg, 167.64 cm) hb MDM: 11:39 Patient medically screened. rn 13:12 Differential diagnosis: Bronchitis CHF exacerbation, Chronic Obstructive Pulmonary rn Disease Myocardial Infarction pneumonia, Pneumothorax pulmonary edema, reactive airway disease. Data reviewed: vital signs, nurses notes, lab test result(s), EKG, radiologic studies, plain films, and as a result, I will admit patient. Counseling: I had a detailed discussion with the patient and/or guardian regarding: the historical points, exam findings, and any diagnostic results supporting the discharge/admit diagnosis, lab results, radiology results, the need for further work-up and treatment in the hospital. 13:13 Response to treatment: the patient's symptoms have mildly improved after treatment, and rn as a result, I will admit patient. Admission orders: after a detailed discussion of the patient's condition and case, the admit orders are written by me. ED course: Improved on Bipap, no acute findings on CXR, admitted to hospitalist service. . 12/30 11:46 Order name: Blood Culture Adult (2) rn 12/30 11:46 Order name: BMP; Complete Time: 12:35 rn 12/30 11:46 Order name: BIPAP rn 12/30 11:46 Order name: CBC with Diff; Complete Time: 12:35 rn 12/30 11:46 Order name: NT PRO-BNP; Complete Time: 12:35 rn 12/30 11:46 Order name: Troponin (emerg Dept Use Only); Complete Time: 12:35 rn 12/30 11:46 Order name: XRAY CXR (1 view); Complete Time: 13:43 rn 12/30 11:46 Order name: EKG; Complete Time: 11:47 rn 12/30 11:46 Order name: Cardiac monitoring; Complete Time: 12:12 rn 12/30 14:06 Order name: CONS Physician Consult EDMS 12/30 11:46 Order name: EKG - Nurse/Tech; Complete Time: 13:33 rn 12/30 11:46 Order name: IV Saline Lock; Complete Time: 12:12 rn 12/30 11:46 Order name: Labs collected and sent; Complete Time: 13:33 rn 12/30 11:46 Order name: O2 Per Protocol; Complete Time: 12:12 rn 12/30 11:46 Order name: O2 Sat Monitoring; Complete Time: 12:12 rn Administered Medications: 12:17 Drug: Xopenex (3) 1.25 mg Route: Inhalation; hb 12:27 Drug: Lasix 40 mg Route: IVP; Site: left forearm; hb 13:02 Follow up: Response: No adverse reaction hb 12:29 Drug: Ativan 0.25 mg Route: IVP; Site: left forearm; hb 13:00 Follow up: Response: No adverse reaction hb 13:47 Drug: SOLU-Medrol 125 mg Route: IVP; Site: left forearm; hb Disposition: 13:15 Critical Care:. rn Disposition: 12/31/19 13:15 Hospitalization ordered by Miguel Atkinson for Inpatient Admission. Preliminary diagnosis are Chronic obstructive pulmonary disease with (acute) exacerbation, Lymphedema, not elsewhere classified. - Bed requested for Telemetry/MedSurg (Inpatient). - Status is Inpatient Admission. ph - Condition is Fair. - Problem is an acute exacerbation. - Symptoms have improved. Critical care time excluding procedures: 13:15 Critical care time: Bedside Care: 30 minutes. Total time: 30 minutes rn Signatures: Dispatcher [employer] EDMS Bria Zepeda bd Taye Addison MD MD rn Smirch, Shelby, RN RN ss Roszak, Josh, PA PA [id number] Tyesha Moran RN RN Margie Jacob RN RN Prateek Hobson RN RN ja1 Corrections: (The following items were deleted from the chart) 13:39 13:15 Hospitalization Ordered by Owen HARDEN for Inpatient Admission. Preliminary ss diagnosis is Chronic obstructive pulmonary disease with (acute) exacerbation; Lymphedema, not elsewhere classified. Bed requested for Telemetry/MedSurg (Inpatient). Status is Inpatient Admission. Condition is Fair. Problem is an acute exacerbation. Symptoms have improved. rn 14:28 13:39 12/31/2019 13:15 Hospitalization Ordered by Miguel Atkinson MD for Inpatient bd Admission. Preliminary diagnosis is Chronic obstructive pulmonary disease with (acute) exacerbation; Lymphedema, not elsewhere classified. Bed requested for Telemetry/MedSurg (Inpatient). Status is Inpatient Admission. Condition is Fair. Problem is an acute exacerbation. Symptoms have improved. ss 15:05 14:28 12/31/2019 13:15 Hospitalization Ordered by Miguel Atkinson MD for Inpatient ja1 Admission. Preliminary diagnosis is Chronic obstructive pulmonary disease with (acute) exacerbation; Lymphedema, not elsewhere classified. Bed requested for Telemetry/MedSurg (Inpatient). Status is Inpatient Admission. Condition is Fair. Problem is an acute exacerbation. Symptoms have improved. bd 15:55 15:05 12/31/2019 13:15 Hospitalization Ordered by Miguel Atkinson MD for Inpatient ph Admission. Preliminary diagnosis is Chronic obstructive pulmonary disease with (acute) exacerbation; Lymphedema, not elsewhere classified. Bed requested for Telemetry/MedSurg (Inpatient). Status is Inpatient Admission. Condition is Fair. Problem is an acute exacerbation. Symptoms have improved. ja1
[2019-12-31] MEDS ORDERED: METHYLPREDNISOLONE 125 MG INJ ONE (13:54)
[2019-12-31] MEDS ORDERED: ACETAMINOPHEN 500 MG TAB PO PRN (16:01)
[2019-12-31] MEDS ORDERED: ONDANSETRON 4 MG/2 ML VIAL IV PRN (16:01)
[2019-12-31] MEDS ORDERED: IPRATROPIUM BROM 0.5MG/2.5ML NEB PRN (16:01)
[2019-12-31] MEDS ORDERED: GLUCAGON 1 MG/VIAL IM PRN (16:01)
[2019-12-31] MEDS ORDERED: D50W 25 GM/50 ML SYRINGE IV PRN (16:01)
[2019-12-31 16:26] LABS: Arterial Blood Carboxyhemoglob 1.7 % (0-1.5); Blood Gas Oxyhemoglobin 88.9 % (94-97); Blood O2 Saturation 91.2 % (92-98.5)
[2019-12-31] MEDS: INSULIN -REGULAR HUMAN 50 UNIT/0.5 ML ML SQ SCH ×2 (16:30→21:37)
[2019-12-31] MEDS: FUROSEMIDE 20 MG/ 2ML VIAL IV SCH (16:42)
[2019-12-31] MEDS: METHYLPREDNISOLONE 40 MG INJ IV SCH (16:42)
[2019-12-31] MEDS: ENOXAPARIN 40 MG/0.4 ML SQ SCH (16:42)
[2019-12-31] MEDS: ALBUTEROL 2.5 MG/3 ML NEB SOL NEB PRN (16:55)
[2019-12-31] MEDS ORDERED: INFLUENZA VACCINE (for 3y+) 0.5 ML DOSE IMVAC ONE (17:00)
--- NOTE | 2019-12-31 17:38 | P.HP ---
Certification for Inpatient Patient admitted to: Inpatient With expected LOS: >2 Midnights Patient will require the following post-hospital care: Hospice Practitioner: I am a practitioner with admitting privileges, knowledge of patient current condition, hospital course, and medical plan of care. Services: Services provided to patient in accordance with Admission requirements found in Title 42 Section 412.3 of the Code of Federal Regulations <Jaycee Mantillashua - Last Filed: 12/31/19 17:33> Patient History Date of Service: 12/31/19 Primary Care Provider: PCP Reason for admission: COPD Exacerbation History of Present Illness: This is a 79-year-old female with a history of chronic obstructive pulmonary disease, unj-vlprpkc-eokjfzcsu diabetes myelitis, hypercholesterol, hypothyroidism, lung cancer that is currently being untreated. Presents to the emergency room today with acute exacerbation of what looks to be her chronic obstructive pulmonary disease. Patient was initially tachypneic with hypoxemia. Patient was worked up in the emergency room and found to have mild increase in lung cancer involvement with chronic emphysema attic changes. Patient with mild hyponatremia but without any signs of sepsis. BNP and troponin were normal. Patient on BiPAP currently and feeling mildly better. ABG reveals acidosis with hypoxemia and hypercarbia. Patient will be admitted to telemetry under hospitalist team for further evaluation. Home medications list reviewed: Yes - Past Medical/Surgical History Has patient received pneumonia vaccine in the past: Yes Diabetic: Yes -: CHF -: COPD -: DMII -: Hypothyroid -: Hyperlipidemia -: Asthma -: Choley -: Eye sx X3 -: Colon surgery -: Cardiac stent -: PAD stent bilaterally - Family History Father Notes: parkinsons Brother -: Heart disease Notes: heart attack Mother -: Heart disease - Social History Smoking Status: Current every day smoker Counseled patient to stop smoking for: more than 10 minutes Smoking therapy provided: Yes Patient receptive to therapy: No Alcohol use: Yes CD- Drugs: No Caffeine use: Yes Place of Residence: Home <Eliot Mantilla - Last Filed: 12/31/19 17:33> Date of Service: 01/01/20 <Miguel Atkinson - Last Filed: 01/01/20 14:19> Allergies hydrocortisone Allergy (Verified 11/18/19 04:59) Nausea/Vomiting/shaking Home Medications: Simvastatin 1 tab PO BEDTIME 11/06/19 Fluticasone/Salmeterol [Advair 250-50 Diskus] 1 each IH BID 30 Days #60 blst.w.dev 11/18/19 Levothyroxine Sodium 50 mcg PO DAILY #30 tablet 11/18/19 Metformin ER [Glucophage ER*] 1 tab PO DAILY 30 Days #30 tab.sa 11/18/19 lisinopriL [Lisinopril] 10 mg PO DAILY #30 tablet 11/18/19 Ipratropium/Albuterol Sulfate [Iprat-Albut 0.5-3(2.5) mg/3 ml] 3 ml IH TID 30 Days #1 ampul.neb 11/19/19 Levalbuterol HCl [Xopenex] 1.25 mg IH Q4H #1 packet 11/19/19 Review of Systems General: As per HPI Eyes: Unremarkable ENT: Unremarkable Respiratory: Cough, Shortness of Breath, SOB with Excertion Cardiovascular: Unremarkable Gastrointestinal: Unremarkable Musculoskeletal: Unremarkable Integumentary: Unremarkable Neurological: Unremarkable Lymphatics: Unremarkable <Eliot Mantilla - Last Filed: 12/31/19 17:33> Physical Examination - Vital Signs Temperature: 97.5 F Blood Pressure: 168/70 Pulse: 73 Respirations: 18 Pulse Ox (%): 95 - Physical Exam General: Alert, In no apparent distress, Oriented x2 HEENT: PERRLA, Mucous membr. moist/pink, EOMI Neck: Supple, 2+ carotid pulse no bruit Respiratory: Diminished, Expiratory wheezes Cardiovascular: No edema, Normal pulses, Regular rate/rhythm, Normal S1 S2 Capillary refill: <2 Seconds Gastrointestinal: Normal bowel sounds, Soft and benign, Non-distended, No ascites, No tenderness, No masses, No rebound, No guarding Musculoskeletal: No clubbing, No swelling, No contractures, No erythema, No tenderness, No warmth Integumentary: No rashes, No breakdown, No significant lesion, No tenderness/ swelling, No erythema, No warmth, No cyanosis Neurological: Normal speech, Normal strength at 5/5 x4 extr, Normal tone, Sensation intact, Cranial nerves 3-12 intact, Normal affect Lymphatics: No axilla or inguinal lymphadenopathy - Studies Laboratory Data (last 24 hrs) 12/31/19 12:06: WBC 4.7 D, Hgb 12.5, Hct 38.3, Plt Count 202 12/31/19 12:06: Sodium 131 L, Potassium 4.2, BUN 20 H, Creatinine 0.83, Glucose 135 H <Eliot Mantilla - Last Filed: 12/31/19 17:33> Assessment and Plan - Problems (Diagnosis) (1) Hypercholesteremia Current Visit: Yes Status: Chronic (2) Hypothyroidism Current Visit: Yes Status: Chronic Qualifiers: Hypothyroidism type: unspecified Qualified Code(s): E03.9 - Hypothyroidism , unspecified (3) Diabetes Current Visit: Yes Status: Chronic Qualifiers: Diabetes mellitus type: type 2 Diabetes mellitus 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 Diabetes mellitus complication status: without complication Qualified Code(s): E11.9 - Type 2 diabetes mellitus without complications (4) Acute on chronic respiratory failure with hypoxia and hypercapnia Current Visit: No Status: Acute (5) COPD exacerbation Current Visit: No Status: Acute (6) Hilar mass Onset Date: 06/13/18 Current Visit: No Status: Chronic (7) Hyponatremia Onset Date: 11/07/18 Current Visit: No Status: Acute (8) Hypertension Onset Date: 06/13/18 Current Visit: No Status: Chronic Qualifiers: Hypertension type: essential hypertension - Plan Patient will be admitted to telemetry where BiPAP will be continued. Patient's mental status and vitals will be watched closely to ensure that her carbon dioxide levels did not continue to elevate and that her breathing status improves. Will continue her home medications for her hypothyroidism, hypercholesterolemia, hypertension, diabetes. Patient will have in-line breathing treatments with BiPAP and steroid therapy as well. Pulmonology will be consulted for hilar mass and COPD exacerbation. If patient improves over the next couple of days. We will discuss with family for possible need for hospice as patient does not want anything done with the lung cancer at this time and that her COPD seems to be worsening. Discharge Plan: Home Plan to discharge in: 48 Hours - Advance Directives Does patient have a Living Will: No Does patient have a Durable POA for Healthcare: Yes Critical Care: No Time Spent Managing Pts Care (In Minutes): 45 <Eliot Mantilla - Last Filed: 12/31/19 17:33> Physician Review: Patient Assessed, Agree with Above Assessment and Plan Physician Review Additional Text: Case discussed w FINA. Chart reviewed <Miguel Atkinson - Last Filed: 01/01/20 14:19>
[2019-12-31] MEDS: ATORVASTATIN 20 MG TAB PO SCH (21:40)
[2020-01-01] MEDS: METHYLPREDNISOLONE 40 MG INJ IV SCH ×2 (01:32→08:15)
[2020-01-01 05:15] LABS: Absolute Lymphocytes (CBC) 0.3 K/uL (0.7-4.9); Basophils % 0.2 % (0-1.3); Hematocrit 37.2 % (36.0-45.0); Lymphocytes % 13.4 % (15.3-44.8); MPV 7.9 fL (7.6-11.3); RBC Red Blood Cell Count 3.91 M/uL (3.86-4.86)
[2020-01-01] MEDS: LEVOTHYROXINE SOD 0.05 MG TABLET PO SCH (05:43)
[2020-01-01 05:54] LABS: Potassium 4.3 mmol/L (3.5-5.1)
[2020-01-01 05:58] VITALS: BMI 21.9
[2020-01-01] MEDS: lisinopriL 10 MG TAB PO SCH (08:07)
[2020-01-01] MEDS: FUROSEMIDE 20 MG/ 2ML VIAL IV SCH (08:11)
[2020-01-01] MEDS: INSULIN -REGULAR HUMAN 50 UNIT/0.5 ML ML SQ SCH ×4 (08:11→21:00)
[2020-01-01 08:16] LABS: Anisocytosis 1+; Blood Morphology Comment NOTED (NOT SEEN); Platelet Estimate ADEQ; White Blood Cell Scan OK
[2020-01-01] MEDS: ARFORMOTEROL TARTRATE 15 MCG/2 ML VIAL.NEB NEB SCH ×2 (08:19→20:00)
--- NOTE | 2020-01-01 08:54 | EKG ---
Test Date: 2019-12-31 Test Time: 12:26:15 Operations Research Engineer: NABEEL MEASUREMENT RESULTS: Intervals: Rate: 83 ME: 142 QRSD: 80 QT: 382 QTc: 448 [place]: P: 79 ME: 142 QRS: 72 T: 70 INTERPRETIVE STATEMENTS: Normal sinus rhythm Possible Left atrial enlargement Possible Anterior infarct, age undetermined Abnormal ECG Compared to ECG 12/25/2019 09:15:37 Myocardial infarct finding now present Atrial premature complex(es) no longer present Aberrant conduction of supraventricular beat(s) no longer present Electronically Signed On 01-01-20 08:52:59 CDT by Casper Jon
[2020-01-01] MEDS: predniSONE 20 MG TAB PO SCH ×2 (09:25→21:24)
[2020-01-01] MEDS: acetaZOLAMIDE 250 MG TAB PO SCH (09:25)
--- NOTE | 2020-01-01 11:26 | P.PN ---
Subjective Date of Service: 01/01/20 Primary Care Provider: PCP Chief Complaint: COPD Exacerbation Subjective: No C/O voiced (still SOB , refusing bipap), Tolerating diet (still SOB), New changes Physical Examination - Vital Signs Temperature: 97.7 F Blood Pressure: 137/71 Pulse: 91 Respirations: 16 Pulse Ox (%): 91 - Physical Exam General: Alert, Moderate distress HEENT: Atraumatic, Normocephalic Neck: Supple, 2+ carotid pulse no bruit Respiratory: Crackles/rales, Expiratory wheezes Cardiovascular: Normal pulses, Regular rate/rhythm, Normal S1 S2 Gastrointestinal: Normal bowel sounds, Hypoactive, Soft and benign Neurological: Normal speech, Normal strength at 5/5 x4 extr - Studies Laboratory Data (last 24 hrs) 12/31/19 12:06: WBC 4.7 D, Hgb 12.5, Hct 38.3, Plt Count 202 12/31/19 12:06: Sodium 131 L, Potassium 4.2, BUN 20 H, Creatinine 0.83, Glucose 135 H Medications List Reviewed: Yes Assessment & Plan Physician Review: Patient Assessed, Agree with Above Assessment and Plan Physician Review Additional Text: # COPD - still persistent symptoms -desaturitng with miniaml exertion - s/p noted with 02 sat at 785 on 5 L while attempting to use bedside commode , 02 increase to 7 L -will restart Bipap now -follow pulmonary eval # Lung cancer -refusing treatment -will d/w with family regarding hospice after pulmonary consult evaluation # DVT prop- sc lovenox
[2020-01-01] MEDS: ALBUTEROL 2.5 MG/3 ML NEB SOL NEB PRN (13:10)
[2020-01-01] MEDS: IPRATROPIUM BROM 0.5MG/2.5ML NEB SCH ×2 (13:10→20:00)
[2020-01-01 13:34] LABS: Blood Gas Oxyhemoglobin 93.9 % (94-97); Blood O2 Saturation 95.7 % (92-98.5)
[2020-01-01] MEDS: ENOXAPARIN 40 MG/0.4 ML SQ SCH (17:38)
[2020-01-01] MEDS: ATORVASTATIN 20 MG TAB PO SCH (21:24)
[2020-01-02] MEDS: IPRATROPIUM BROM 0.5MG/2.5ML NEB SCH ×4 (01:45→20:15)
[2020-01-02] MEDS: LEVOTHYROXINE SOD 0.05 MG TABLET PO SCH (06:03)
[2020-01-02 06:30] LABS: Absolute Lymphocytes (CBC) 0.8 K/uL (0.7-4.9); Basophils % 0.3 % (0-1.3); Hematocrit 36.3 % (36.0-45.0); Lymphocytes % 11.1 % (15.3-44.8); MPV 8.1 fL (7.6-11.3); RBC Red Blood Cell Count 3.87 M/uL (3.86-4.86)
[2020-01-02 06:52] LABS: Albumin 3.1 g/dL (3.4-5.0); Bilirubin Total 0.7 mg/dL (0.2-1.0); Potassium 3.8 mmol/L (3.5-5.1); Protein, Total 6.4 g/dL (6.4-8.2)
[2020-01-02] MEDS: ALBUTEROL 2.5 MG/3 ML NEB SOL NEB PRN ×2 (07:45→13:20)
[2020-01-02] MEDS: ARFORMOTEROL TARTRATE 15 MCG/2 ML VIAL.NEB NEB SCH ×2 (07:45→20:13)
[2020-01-02] MEDS: lisinopriL 10 MG TAB PO SCH (08:35)
[2020-01-02] MEDS: acetaZOLAMIDE 250 MG TAB PO SCH (08:36)
[2020-01-02] MEDS: INSULIN -REGULAR HUMAN 50 UNIT/0.5 ML ML SQ SCH ×4 (08:36→16:29)
[2020-01-02] MEDS: predniSONE 20 MG TAB PO SCH ×2 (08:36→20:47)
[2020-01-02] MEDS ORDERED: FUROSEMIDE 40 MG/4 ML VIAL IV ONE ×2 (10:05→12:36)
[2020-01-02] MEDS ORDERED: METHYLPREDNISOLONE 125 MG INJ IV ONE (10:05)
[2020-01-02] MEDS ORDERED: METHYLPREDNISOLONE 125 MG INJ IV SCH (12:00)
--- NOTE | 2020-01-02 12:14 | P.CNS ---
Date of Consult: 01/02/20 Primary Care Provider: PCP Chief Complaint: COPD Exacerbation History of Present Illness: Patient is 79 years of age recurrent hospital admissions she does have presumed lung cancer large right hilar mass continues to smoke heavily admitted with worsening shortness of breath for the past 2 weeks with lower extremity edema poor historian he has refused workup before Allergies hydrocortisone Allergy (Verified 11/18/19 04:59) Nausea/Vomiting/shaking Home Medications: Simvastatin 1 tab PO BEDTIME 11/06/19 Fluticasone/Salmeterol [Advair 250-50 Diskus] 1 each IH BID 30 Days #60 blst.w.dev 11/18/19 Levothyroxine Sodium 50 mcg PO DAILY #30 tablet 11/18/19 Metformin ER [Glucophage ER*] 1 tab PO DAILY 30 Days #30 tab.sa 11/18/19 lisinopriL [Lisinopril] 10 mg PO DAILY #30 tablet 11/18/19 Ipratropium/Albuterol Sulfate [Iprat-Albut 0.5-3(2.5) mg/3 ml] 3 ml IH TID 30 Days #1 ampul.neb 11/19/19 Levalbuterol HCl [Xopenex] 1.25 mg IH Q4H #1 packet 11/19/19 - Past Medical/Surgical History Diabetic: Yes -: CHF -: COPD -: DMII -: Hypothyroid -: Hyperlipidemia -: Asthma -: Lung mass -: Choley -: Eye sx X3 -: Colon surgery -: Cardiac stent -: PAD stent bilaterally - Family History Father Notes: parkinsons Brother Medical History: Heart disease Notes: heart attack Mother Medical History: Heart disease - Social History Smoking Status: Current every day smoker Alcohol use: Yes CD- Drugs: No Caffeine use: Yes Place of Residence: Home Review of Systems General: Weakness Respiratory: Cough, Shortness of Breath Physical Examination Temp Pulse Resp BP Pulse Ox 97.4 F 85 20 115/65 90 L 01/02/20 04:00 01/02/20 10:27 01/02/20 08:37 01/02/20 10:27 01/02/20 08:37 General: Alert, Oriented x3 Respiratory: Expiratory wheezes Cardiovascular: No edema, Regular rate/rhythm, Normal S1 S2 - Problems (1) COPD exacerbation Current Visit: No Status: Acute Plan: Patient is 79 years of age admitted with COPD exacerbation she continues to smoke has refused workup for the lung mass patient has chronic hypoxemia hypercapnia I recommend nebulized bronchodilators at home patient wants to go to hospice care titrate sat to 90% continue with Diamox she has chronic hypoxemia and hypercapnia reduce prednisone to 20 mg twice a day he then 10 mg once a day maintenance dose used home long-acting nebulizers
--- NOTE | 2020-01-02 12:36 | P.DS ---
Admission Date: 12/31/19 Discharge Date: 01/02/20 Primary Care Provider: PCP Disposition: DC HOME/HOME HEALTH CARE Discharge Condition: FAIR Reason for Admission: COPD Exacerbation Brief History of Present Illness: History of Present Illness: This is a 79-year-old female with a history of chronic obstructive pulmonary disease, owh-pgoawan-kifvqiyno diabetes myelitis, hypercholesterol, hypothyroidism, lung cancer that is currently being untreated. Presents to the emergency room today with acute exacerbation of what looks to be her chronic obstructive pulmonary disease. Patient was initially tachypneic with hypoxemia. Patient was worked up in the emergency room and found to have mild increase in lung cancer involvement with chronic emphysema attic changes. Patient with mild hyponatremia but without any signs of sepsis. BNP and troponin were normal. Patient on BiPAP currently and feeling mildly better. ABG reveals acidosis with hypoxemia and hypercarbia. Patient will be admitted to telemetry under hospitalist team for further evaluation. Hospital Course: Patient with history of chronic COPD on home O2, recurrent multiple COPD exacerbation, finding of lung cancer be defined treatment, with no to pulmonary service admitted for was the wheezing and shortness of breath. She still continued to diff treatment. She was refusing BiPAP for her elevated hypercapnia noted on presentation. She was evaluated by pulmonary-Dr. Black. She was continue on nasal cannula O2 with gradually increasing doses. Patient was adamant and eager to go home after 2nd day of hospitalization. Option of home hospice was discussed and she is agreeable. Case management consult has been obtained on arrangement for home hospice will be arranged. Vital Signs/Physical Exam: Temp Pulse Resp BP Pulse Ox 97.4 F 85 20 115/65 90 L 01/02/20 04:00 01/02/20 10:27 01/02/20 08:37 01/02/20 10:27 01/02/20 08:37 General: Alert, Oriented x3, Cooperative HEENT: Atraumatic, Normocephalic, PERRLA Neck: Supple, 2+ carotid pulse no bruit, JVD not distended Respiratory: Dull, Expiratory wheezes Cardiovascular: No edema, Normal pulses, Regular rate/rhythm Gastrointestinal: Normal bowel sounds, Hypoactive, Soft and benign Musculoskeletal: No clubbing, No swelling, Swelling (mild LE swelling ) Neurological: Normal speech, Normal strength at 5/5 x4 extr External genitalia: No edema Laboratory Data at Discharge: WBC 7.6 K/uL (4.3-10.9) D 01/02/20 06:14 Hgb 11.9 g/dL (12.0-15.0) L 01/02/20 06:14 Hct 36.3 % (36.0-45.0) 01/02/20 06:14 Plt Count 202 K/uL (152-406) 01/02/20 06:14 Sodium 134 mmol/L (136-145) L 01/02/20 06:14 Potassium 3.8 mmol/L (3.5-5.1) 01/02/20 06:14 BUN 26 mg/dL (7-18) H 01/02/20 06:14 Creatinine 0.71 mg/dL (0.55-1.3) 01/02/20 06:14 Glucose 117 mg/dL (74-106) H 01/02/20 06:14 Total Bilirubin 0.7 mg/dL (0.2-1.0) 01/02/20 06:14 AST 23 U/L (15-37) 01/02/20 06:14 ALT 10 U/L (12-78) L 01/02/20 06:14 Alkaline Phosphatase 80 U/L (45-117) 01/02/20 06:14 Troponin I < 0.02 ng/mL (0.0-0.045) 12/31/19 19:50 Home Medications: Simvastatin 1 tab PO BEDTIME 11/06/19 Fluticasone/Salmeterol [Advair 250-50 Diskus] 1 each IH BID 30 Days #60 blst.w.dev 11/18/19 Levothyroxine Sodium 50 mcg PO DAILY #30 tablet 11/18/19 Metformin ER [Glucophage ER*] 1 tab PO DAILY 30 Days #30 tab.sa 11/18/19 lisinopriL [Lisinopril] 10 mg PO DAILY #30 tablet 11/18/19 Ipratropium/Albuterol Sulfate [Iprat-Albut 0.5-3(2.5) mg/3 ml] 3 ml IH TID 30 Days #1 ampul.neb 11/19/19 Levalbuterol HCl [Xopenex] 1.25 mg IH Q4H #1 packet 11/19/19 predniSONE [Prednisone] 40 mg PO DAILY #30 tablet 01/02/20 New Medications: predniSONE [Prednisone] 40 mg PO DAILY #30 tablet Diet: Regular Activity: Ad micheal Followup: Abhijit Black MD [ACTIVE - CAN ADMIT] - 2-3 Days
[2020-01-02] MEDS: ENOXAPARIN 40 MG/0.4 ML SQ SCH (17:24)
[2020-01-02] MEDS: ATORVASTATIN 20 MG TAB PO SCH (20:47)
[2020-01-03] MEDS ORDERED: clonazePAM 1 MG TAB PO ONE (00:34)
[2020-01-03] MEDS: ALBUTEROL 2.5 MG/3 ML NEB SOL NEB PRN (01:10)
[2020-01-03] MEDS: IPRATROPIUM BROM 0.5MG/2.5ML NEB SCH ×3 (01:10→13:50)
[2020-01-03] MEDS: INSULIN -REGULAR HUMAN 50 UNIT/0.5 ML ML SQ SCH ×3 (01:50→11:30)
[2020-01-03 04:10] LABS: Absolute Lymphocytes (CBC) 0.8 K/uL (0.7-4.9); Basophils % 0.1 % (0-1.3); Hematocrit 39.6 % (36.0-45.0); Lymphocytes % 9.4 % (15.3-44.8); MPV 8.5 fL (7.6-11.3); RBC Red Blood Cell Count 4.21 M/uL (3.86-4.86)
[2020-01-03 05:22] LABS: Blood Morphology Comment NOT SEEN (NOT SEEN); Platelet Estimate ADEQ
[2020-01-03] MEDS: LEVOTHYROXINE SOD 0.05 MG TABLET PO SCH (06:01)
--- NOTE | 2020-01-03 08:23 | RAD REPORT ---
EXAM DESCRIPTION: Ute Single View01/03/2020 6:37 am CLINICAL HISTORY: Chest pain COMPARISON: December 30 FINDINGS: Large right infrahilar opacity. Consolidation right upper lobe. Right lung volume loss Heart is normal size Left lung appears clear of acute infiltrate IMPRESSION: Consolidation right upper lobe probably representing postobstructive atelectasis. Large right hilar mass
[2020-01-03] MEDS: ARFORMOTEROL TARTRATE 15 MCG/2 ML VIAL.NEB NEB SCH (08:41)
[2020-01-03] MEDS: lisinopriL 10 MG TAB PO SCH (09:18)
[2020-01-03] MEDS: acetaZOLAMIDE 250 MG TAB PO SCH (09:18)
[2020-01-03] MEDS: predniSONE 20 MG TAB PO SCH (09:18)
[2020-01-03 10:10] VITALS: O2SAT 94
--- NOTE | 2020-01-03 11:56 | P.PN ---
Subjective Date of Service: 01/02/20 Primary Care Provider: PCP Chief Complaint: COPD Exacerbation Subjective: No new changes (anxious to go home) Physical Examination - Vital Signs Temperature: 97.9 F Blood Pressure: 136/70 Pulse: 76 Respirations: 18 Pulse Ox (%): 92 - Physical Exam General: Alert, In no apparent distress, Mild distress HEENT: Atraumatic, Normocephalic Respiratory: Diminished, Crackles/rales, Expiratory wheezes Cardiovascular: Normal pulses, Regular rate/rhythm, Normal S1 S2 Gastrointestinal: Normal bowel sounds, Soft and benign Neurological: Normal speech, Normal strength at 5/5 x4 extr - Studies Medications List Reviewed: Yes Assessment & Plan Physician Review: Patient Assessed, Agree with Above Assessment and Plan Physician Review Additional Text: COPD exacerbation-stay wheezing, still requiring high-flow O2 at 7 L. -mild lower extremity edema noted, with dose Lasix 40 x 1 today -we increase prednisone to Solu-Medrol 125 mg x1 -need for hospice discussed outpatient agreeable, case management discuss with to provide hospice service -patient anxious to go home, to discharge today when hospice service provided
[2020-01-03 12:21] VITALS: BP 134/61; TEMP 97.6
== END 2020-01-03 17:42 | disposition home or self-care (01) | DRG 189 ==
LOC: ER 11:35 → ERHOLD 13:49 → 4TH 15:35
PROVIDERS: ADMIT Family Medicine; ATTEND Internal Medicine
PROC: 5A09457 Assistance with Respiratory Ventilation, 24-96 Consecutive Hours, Continuous Positive Airway Pressure (ICD-10-PCS; principal; 2019-12-31)
DX: J96.21 Acute and chronic respiratory failure with hypoxia (principal); J44.1 Chronic obstructive pulmonary disease with (acute) exacerbation; C34.90 Malignant neoplasm of unspecified part of unspecified bronchus or lung; E87.1 Hypo-osmolality and hyponatremia; E87.2 Acidosis; J96.22 Acute and chronic respiratory failure with hypercapnia; E11.9 Type 2 diabetes mellitus without complications; E03.9 Hypothyroidism, unspecified; E78.00 Pure hypercholesterolemia, unspecified; I50.9 Heart failure, unspecified; I11.0 Hypertensive heart disease with heart failure; E78.5 Hyperlipidemia, unspecified; R91.8 Other nonspecific abnormal finding of lung field; Z99.81 Dependence on supplemental oxygen
CPT/HCPCS: 36415; 71045; 80048; 80053; 82805; 82947; 83880; 84484; 85025; 87040; 93005; 94640; 94660; 94760; 96374; 96375; 97116; 97161; 99285; J1650; J1940; J2920; J2930; J7512; J7605

== ENCOUNTER 2020-01-15 05:06 | Inpatient (IN) | payer OTHER ==
[2020-01-16 06:23] VITALS: BMI 18.8
[2020-01-25 09:31] VITALS: O2SAT 93
[2020-01-25 17:25] VITALS: BP 99/60; TEMP 99.1
== END 2020-01-25 18:09 | disposition hospice, home (50) | DRG 871 ==
LOC: ER 05:06 → ERHOLD 10:54 → 3RD-ICU 14:55 → 4TH 01-16 18:05 → 2ND 01-22 18:00
PROVIDERS: ADMIT Internal Medicine; ATTEND Family Medicine
DX: A41.9 Sepsis, unspecified organism (principal); J96.22 Acute and chronic respiratory failure with hypercapnia; J96.21 Acute and chronic respiratory failure with hypoxia; J44.1 Chronic obstructive pulmonary disease with (acute) exacerbation; E87.1 Hypo-osmolality and hyponatremia; C34.90 Malignant neoplasm of unspecified part of unspecified bronchus or lung; Z66 Do not resuscitate; Z88.0 Allergy status to penicillin; Z88.8 Allergy status to other drugs, medicaments and biological substances; Z79.84 Long term (current) use of oral hypoglycemic drugs; Z79.899 Other long term (current) drug therapy; E11.9 Type 2 diabetes mellitus without complications; I10 Essential (primary) hypertension; E78.5 Hyperlipidemia, unspecified; Z11.59 Encounter for screening for other viral diseases; Z79.52 Long term (current) use of systemic steroids; Z95.5 Presence of coronary angioplasty implant and graft; R79.89 Other specified abnormal findings of blood chemistry; R91.8 Other nonspecific abnormal finding of lung field
CPT/HCPCS: 36415; 71045; 71260; 76604; 76705; 80048; 80053; 80074; 80076; 80329; 82150; 82550; 82553; 82805; 82947; 83605; 83690; 83735; 84100; 84145; 84484; 85025; 85610; 85730; 87040; 87070; 87205; 87804; 93005; 94640; 94660; 94760; 96361; 96365; 96366; 96367; 96375; 99285; J1644; J1650; J1940; J2543; J2930; J3475; J7030; J7512; Q9967; U0001

== ENCOUNTER 2020-01-27 07:12 | Emergency (ER) | payer OTHER ==
[2020-01-27] MEDS ORDERED: METHYLPREDNISOLONE 125 MG INJ ONE (07:31)
[2020-01-27] MEDS ORDERED: NA CHLORIDE 0.9% 500 ML ONE ×2 (07:37→08:28)
[2020-01-27 07:55] LABS: Protime INR 0.91
[2020-01-27 08:04] LABS: Basophils % 0.4 % (0-1.3); Hematocrit 45.6 % (36.0-45.0); Lymphocytes % 8.1 % (15.3-44.8); MPV 8.6 fL (7.6-11.3); RBC Red Blood Cell Count 4.75 M/uL (3.86-4.86)
[2020-01-27 08:05] LABS: Potassium 4.9 mmol/L (3.5-5.1); Troponin (Emerg Dept Use Only) 0.04 ng/mL (0.0-0.045)
[2020-01-27 08:15] LABS: Urine Glucose NEGATIVE (NEG)
[2020-01-27 08:20] LABS: Urine Blood NEGATIVE (NEG); Urine Protein NEGATIVE (NEG); Urine pH 5.5 (5.0-7.0)
[2020-01-27 08:35] LABS: Urine Bacteria <20 /HPF (<20); Urine RBC NONE SEEN /HPF (NONE SEEN)
[2020-01-27 08:36] LABS: Urine Culture Reflex Order NOT NEEDED; Urine Mucus MOD /HPF (NONE SEEN)
--- NOTE | 2020-01-27 09:10 | ER ---
[facility] Name: Radha Limon Age: 79 yrs Sex: Female : 1940 Arrival Date: 01/27/2020 Time: 07:19 Bed 5 Private MD: Diagnosis: Hypoxemia;Dyspnea, unspecified;Dehydration;Pleural effusion, not elsewhere classified Presentation: 01/26 07:21 Chief complaint: EMS states: pt has hx of lung cancer and COPD, is currently on hospice, pt c/o increasing difficulty breathing and weakness, was recently admitted and d/c from hospital, pt normally uses home O2 was 90% on scene, tachycardic. Coronavirus screen: Surgical mask placed on patient. Patient moved to private room, placed in contact and droplet isolation with eye protection until further assessment. Patient reports shortness of breath or difficulty breathing. Patient denies travel on a cruise ship or to a country the [facility] currently lists as an affected area. Patient denies contact with known and/or suspected case of COVID-19. Ebola Screen: Patient negative for fever greater than or equal to 101.5 degrees Fahrenheit, and additional compatible Ebola Virus Disease symptoms Patient denies exposure to infectious person. Patient denies travel to an Ebola-affected area in the 21 days before illness onset. No symptoms or risks identified at this time. Initial Sepsis Screen: Does the patient meet any 2 criteria? RR > 20 per min. HR > 90 bpm. Does the patient have a suspected source of infection? Yes: If YES to both, name of provider notified: Taye Addison MD Risk Assessment: Do you want to hurt yourself or someone else? Patient reports no desire to harm self or others. Onset of symptoms was January 2020. Care prior to arrival: Oxygen administered. via a non-rebreather mask. 07:21 Method Of Arrival: EMS: [facility] iw 07:21 Acuity: CRISTHIAN 2 iw Historical: - Allergies: 07:29 Hydrocortisone; iw 07:29 PENICILLINS; iw - PMHx: 07:29 Alzheimers; CHF; COPD; Diabetes - NIDDM; Emphysema; Hyperlipidemia; Hypertension; iw Hypothyroidism; Pneumonia; Anemia; - Immunization history:: Adult Immunizations unknown. - Family history:: not pertinent. - Social history:: Smoking status: unknown. - Hospitalizations: : The patient was recently seen at [facility]. Screenin:10 Abuse screen: Denies threats or abuse. Denies injuries from another. Nutritional jl7 screening: No deficits noted. Tuberculosis screening: No symptoms or risk factors identified. Fall Risk Secondary diagnosis (15 points) Alzheimer's, IV access (20 points). Mental Status- Overestimates/Forgets Limitations (15 pts.). Total Sharp Fall Scale indicates High Risk Score (45 or more points). Fall prevention measures have been instituted. Side Rails Up X 2 Placed Close to Nursing Station Frequent Obs/Assessments Occuring As available patient and family educated on Fall Prevention Program and Strategies. Assessment: 07:20 General: Appears in no apparent distress. uncomfortable, Behavior is calm, cooperative. jl7 Pain: Denies pain. Neuro: Level of Consciousness is awake, obeys commands, drowsy. Oriented to person, place, time, Weakness Speech is normal. Cardiovascular: skin warm and diaphoretic. Rhythm is sinus tachycardia. Respiratory: Airway is patent Respiratory effort is even, weak, Respiratory pattern is symmetrical, tachypnea not auscultated. Derm: Skin is diaphoretic, Skin is normal, Skin temperature is warm. 08:00 Derm: Decubitus located on sacrum approximately 7.6 cm to 20 cm Reddened area to jl7 sacrum, skin intact is draining none noted. 08:16 Reassessment: Pt arrived to ED in 2 hospital gowns from previous visit. Pt smelled of jl7 urine. Gowns removed, urine soaked brief removed, pt wiped down with purple body wipes. Inserted Blank catheter, white discharged noted, pt reports "It's itchy." Placed a clean gown and new brief on pt. ERD notified. 09:49 Reassessment: Patient appears in no apparent distress at this time. No changes from jl7 previously documented assessment. Patient and/or family updated on plan of care and expected duration. Pain level reassessed. 11:00 Reassessment: Patient appears in no apparent distress at this time. No changes from jl7 previously documented assessment. Patient and/or family updated on plan of care and expected duration. Pain level reassessed. Patient denies pain at this time. 13:00 Reassessment: CLIVE chips screen tender at bedside. jl7 14:42 Reassessment: Called pt's daughter, Mary Oliver, and updated her on pt's room number [id number]. Vital Signs: 07:21 BP 103 / 72; Pulse 123; Resp 22 S; Temp 99.9(O); Pulse Ox 77% on R/A; iw 08:10 BP 116 / 62; Pulse 110; Resp 14 S; Pulse Ox 98% on 3 lpm NC; jl7 09:00 BP 100 / 57; Pulse 101; Resp 15 S; Pulse Ox 98% on 3 lpm NC; jl7 10:00 BP 111 / 67; Pulse 96; Resp 19; Pulse Ox 97% on 3 lpm NC; jl7 11:00 BP 125 / 89; Pulse 102; Resp 19; Pulse Ox 97% on 3 lpm NC; jl7 13:10 BP 104 / 58; Pulse 92; Resp 18 S; Temp 98.2(O); Pulse Ox 96% on 3 lpm NC; Pain 0/10; iw 14:00 BP 99 / 75; Pulse 96; Resp 16; Pulse Ox 100% on 3 lpm NC; jl7 ED Course: 07:19 Patient arrived in ED. rn 07:19 Taye Addison MD is Attending Physician. rn 07:20 Patient has correct armband on for positive identification. Placed in gown. Bed in low jl7 position. Call light in reach. Side rails up X2. alarm security or surveillance monitor on. Pulse ox on. NIBP on. Warm blanket given. 07:20 Inserted saline lock: 20 gauge in left wrist, using aseptic technique. Blood collected. jl7 07:28 Triage completed. iw 07:35 Initial lab(s) drawn, by mi, sent to lab. First set of blood cultures drawn by me. jl7 07:37 Arm band placed on. iw 07:45 Second set of blood cultures drawn by me, EKG done, by ED staff, reviewed by Taye Addison MD Flu and/or RSV swab sent to lab. 08:00 Urine collected: Blank catheter specimen, clear, raymond colored. Blank cath inserted, jl7 using sterile technique, 16 Fr., by mi, balloon inflated, to gravity drainage, urine specimen collected. 08:07 Jeremiah Rehman RN is Primary Nurse. jl7 08:22 XRAY CXR (1 view) In Process Unspecified. EDMS 09:08 Miguel Atkinson MD is Hospitalizing Provider. rn 14:45 No provider procedures requiring assistance completed. Patient admitted, IV remains in jl7 place. intact, No redness/swelling at site. 14:51 Health Dept notified COVID test sent to lab/ PUI # [id number] lab notified/ per health eb department it will be the same pui # as before because it's a repeat. Administered Medications: 07:45 Drug: SOLU-Medrol 125 mg Route: IVP; Site: left wrist; jl7 08:30 Follow up: Response: No adverse reaction jl7 07:45 Drug: NS 0.9% 500 ml Route: IV; Rate: bolus; Site: left wrist; jl7 08:15 Follow up: Response: No adverse reaction; IV Status: Completed infusion; IV Intake: jl7 500ml 08:29 Drug: NS 0.9% 500 ml Route: IV; Rate: 100 ml/hr; Site: left wrist; jl7 13:30 Follow up: IV Status: Completed infusion; IV Intake: 500ml jl7 Intake: 08:15 IV: 500ml; Total: 500ml. jl7 13:30 IV: 500ml; Total: 1000ml. jl7 Outcome: 09:08 Decision to Hospitalize by Provider. rn 14:14 Discharge ordered by . rn 14:45 Admitted to accompanied by tech, via stretcher, with oxygen, with chart, Report called jl7 to 4th floor nurse 14:45 Condition: stable 14:45 Discharge instructions given to patient, family, Instructed on the need for admit. 14:47 Patient left the ED. jl7 Addendum: 01/30/2020 18:03 Addendum: Other attempted to contact pt regarding negative COVID results. Number is not d m5 in service. Signatures: Dispatcher [employer] Vira Sanchez RN RN Johanna Yang RN Taye Kellogg MD MD rn Leal, Jahala, RN RN jl7 Alysha Barrientos
--- NOTE | 2020-01-27 09:10 | EDPHYS ---
Physician Documentation [facility] Name: Radha Limon Age: 79 yrs Sex: Female : 1940 Arrival Date: 01/27/2020 Time: 07:19 Bed 5 Private MD: ED Physician Taye Addison HPI: 01/26 07:24 This 79 yrs old Female presents to ER via Unassigned with complaints of rn Breathing Difficulty. 07:24 The patient has shortness of breath at rest. Onset: The symptoms/episode began/occurred rn at an unknown time. Duration: The symptoms are continuous. The patient's shortness of breath is aggravated by talking. Severity of symptoms: At their worst the symptoms were moderate in the emergency department the symptoms are unchanged. The patient has experienced similar episodes in the past. Per EMS report, daughter called 911 for sob, and generalized weakness. They said got 911 call from her last night but then didn't get transported. Today even weaker, can normally support herself and today couldn't. No fever. + mild cough. + sob. Per report, on hospice. Also per report, tested last admission for COVID-19 and negative. . Historical: - Allergies: 07:29 Hydrocortisone; iw 07:29 PENICILLINS; iw - PMHx: 07:29 Alzheimers; CHF; COPD; Diabetes - NIDDM; Emphysema; Hyperlipidemia; Hypertension; iw Hypothyroidism; Pneumonia; Anemia; - Immunization history:: Adult Immunizations unknown. - Family history:: not pertinent. - Social history:: Smoking status: unknown. - Hospitalizations: : The patient was recently seen at [facility]. ROS: 07:24 Constitutional: Negative for fever, chills Eyes: Negative for injury, pain, redness, rn and discharge, Cardiovascular: Negative for chest pain, palpitations Respiratory: + sob and cough Abdomen/GI: Negative for abdominal pain, nausea, vomiting, diarrhea, and constipation, MS/Extremity: Negative for injury and deformity, Skin: Negative for injury, rash, and discoloration, Neuro: + generalized weakness Exam: 07:28 Constitutional: Cachectic female, mild tachypnea, sitting upright, slow to respond rn Head/Face: Normocephalic, atraumatic. ENT: dry MM Cardiovascular: Tachycardic, regular, intact distal pulses Respiratory: + mild-moderate tachypnea with coarse breath sounds, diminished on right Abdomen/GI: soft, non-tender MS/ Extremity: Pulses equal, no cyanosis. Neuro: Awake and alert, GCS 15, follows commands, 4/5 strength throughout 07:34 ECG was reviewed by the Attending Physician. rn Vital Signs: 07:21 BP 103 / 72; Pulse 123; Resp 22 S; Temp 99.9(O); Pulse Ox 77% on R/A; iw 08:10 BP 116 / 62; Pulse 110; Resp 14 S; Pulse Ox 98% on 3 lpm NC; jl7 09:00 BP 100 / 57; Pulse 101; Resp 15 S; Pulse Ox 98% on 3 lpm NC; jl7 10:00 BP 111 / 67; Pulse 96; Resp 19; Pulse Ox 97% on 3 lpm NC; jl7 11:00 BP 125 / 89; Pulse 102; Resp 19; Pulse Ox 97% on 3 lpm NC; jl7 13:10 BP 104 / 58; Pulse 92; Resp 18 S; Temp 98.2(O); Pulse Ox 96% on 3 lpm NC; Pain 0/10; iw 14:00 BP 99 / 75; Pulse 96; Resp 16; Pulse Ox 100% on 3 lpm NC; jl7 MDM: 07:19 Patient medically screened. rn 07:55 ED course: Pt on hospice, is DNR/DNI.. rn 07:56 ED course: COVID-19 test from 2 weeks ago neg per lab.. rn 09:06 Differential diagnosis: Myocardial Infarction pneumonia, Pneumothorax pulmonary edema, rn pleural effusion, hypoxia. Data reviewed: vital signs, nurses notes, lab test result(s), EKG, radiologic studies, plain films, and as a result, I will admit patient. Test interpretation: by ED physician or midlevel provider: ECG, plain radiologic studies, + large right pleural effusion and known right lung mass. Counseling: I had a detailed discussion with the patient and/or guardian regarding: the historical points, exam findings, and any diagnostic results supporting the discharge/admit diagnosis, lab results, radiology results, the need for further work-up and treatment in the hospital. Response to treatment: the patient's symptoms have mildly improved after treatment, and as a result, I will admit patient. Admission orders: after a detailed discussion of the patient's condition and case, the admit orders are written by mi. 01/26 07:22 Order name: Blood Culture Adult (2) rn 01/26 07:22 Order name: BMP; Complete Time: 08:14 rn 01/26 07:22 Order name: CBC with Diff; Complete Time: 08:22 rn 01/26 07:22 Order name: NT PRO-BNP; Complete Time: 08:15 rn 01/26 07:22 Order name: PT-INR; Complete Time: 08:33 rn 01/26 07:22 Order name: Ptt, Activated; Complete Time: 08:33 rn 01/26 07:22 Order name: Troponin (emerg Dept Use Only); Complete Time: 08:15 rn 01/26 07:22 Order name: Flu; Complete Time: 08:15 rn 01/26 07:24 Order name: Urine Culture rn 01/26 07:24 Order name: Urine Microscopic Only; Complete Time: 08:51 rn 01/26 07:24 Order name: Procalcitonin; Complete Time: 08:33 rn 01/26 07:28 Order name: Lactate; Complete Time: 08:51 rn 01/26 08:11 Order name: Urine Dipstick--Ancillary (enter results); Complete Time: 08:22 eb 01/26 11:17 Order name: Lactate Sepsis 2 HR Follow-up; Complete Time: 12:11 EDMS 01/26 07:22 Order name: XRAY CXR (1 view); Complete Time: 12:11 rn 01/26 07:22 Order name: EKG; Complete Time: 07:23 rn 01/26 07:22 Order name: Cardiac monitoring; Complete Time: 08:30 rn 01/26 07:22 Order name: EKG - Nurse/Tech; Complete Time: 08:30 rn 01/26 07:22 Order name: IV Saline Lock; Complete Time: 08:30 rn 01/26 07:22 Order name: Labs collected and sent; Complete Time: 08:30 rn 01/26 07:22 Order name: O2 Per Protocol; Complete Time: 08:30 rn 01/26 07:22 Order name: O2 Sat Monitoring; Complete Time: 08:30 rn 01/26 07:24 Order name: Urine Dipstick-Ancillary (obtain specimen); Complete Time: 08:29 rn 01/26 12:17 Order name: COVID-19 iw EC:34 Rate is 122 beats/min. Rhythm is regular. Left axis deviation noted. QRS is positive in rn lead I and negative in lead aVF. WV interval is normal. QRS interval is normal. QT interval is normal. No Q waves. T waves are Normal. No ST changes noted. Clinical impression: Abnormal EKG without significant change and Sinus tachycardia. Interpreted by me. Reviewed by me. Administered Medications: 07:45 Drug: SOLU-Medrol 125 mg Route: IVP; Site: left wrist; jl7 08:30 Follow up: Response: No adverse reaction jl7 07:45 Drug: NS 0.9% 500 ml Route: IV; Rate: bolus; Site: left wrist; jl7 08:15 Follow up: Response: No adverse reaction; IV Status: Completed infusion; IV Intake: jl7 500ml 08:29 Drug: NS 0.9% 500 ml Route: IV; Rate: 100 ml/hr; Site: left wrist; jl7 13:30 Follow up: IV Status: Completed infusion; IV Intake: 500ml 7 Disposition: 01/27/20 14:14 Discharged to Home. Impression: Hypoxemia, Dyspnea, unspecified, Dehydration, Pleural effusion, not elsewhere classified. - Condition is Stable. - Discharge Instructions: Dehydration, Adult, Pleural Effusion, Shortness of Breath. - SBAR form, Medication Reconciliation Form, Thank You Letter, Antibiotic Education, Prescription Opioid Use form. - Follow up: Private Physician; When: As needed; Reason: Recheck today's complaints, Re-evaluation by your physician. - Problem is an ongoing problem. - Symptoms have improved. Signatures: Dispatcher [employer] EDNV Johanna Benedict RN RN iw Nieto, Roman, MD MD rn Leal, Jahala, RN RN jl7 Ashley Waldron [email or web address] Corrections: (The following items were deleted from the chart) 14:09 09:08 Hospitalization Ordered by Miguel Atkinson MD for Inpatient Admission. Preliminary kj1 diagnosis is Dehydration; Pleural effusion, not elsewhere classified; Hypoxemia; Weakness. Bed requested for Telemetry/MedSurg (Inpatient). Status is Inpatient Admission. Condition is Fair. Problem is an ongoing problem. Symptoms have improved. 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 Preliminary diagnosis is Dehydration; Pleural effusion, not elsewhere classified; Hypoxemia; Weakness. Bed requested for Telemetry/MedSurg (Inpatient). Status is Inpatient Admission. Condition is Fair. Problem is an ongoing problem. Symptoms have improved. kj1 14:47 14:14 01/27/2020 14:14 Discharged to Home. Impression: Hypoxemia; Dyspnea, unspecified; jl7 Dehydration; Pleural effusion, not elsewhere classified. Condition is Stable. Forms are Medication Reconciliation Form, Thank You Letter, Antibiotic Education, Prescription Opioid Use. Follow up: Private Physician; When: As needed; Reason: Recheck today's complaints, Re-evaluation by your physician. Problem is an ongoing problem. Symptoms have improved. rn
--- NOTE | 2020-01-27 12:06 | RAD REPORT ---
EXAM DESCRIPTION: RAD - Chest Single View - 01/27/2020 8:21 am CLINICAL HISTORY: DYSPNEA Chest pain. COMPARISON: Chest Single View dated 01/15/2020; Chest Single View dated 01/03/2020; Chest Single View dated 12/31/2019; Chest Single View dated 11/18/2019; Chest dated 01/18/2020; Thorax W/ Con dated 01/17/20 20 FINDINGS: Portable technique limits examination quality. Chronic right pleural effusion is again seen, slightly reduced in in size relative to 01/15/2020 radi ograph. The left lung is grossly clear. The heart is mildly prominent. No displaced fractures.
--- NOTE | 2020-01-27 14:22 | EKG ---
Test Date: 2020-01-27 Test Time: 07:22:52 [employer] Vendor: [employer] MEASUREMENT RESULTS: Intervals: Rate: 122 PA: 138 QRSD: 76 QT: 290 QTc: 413 [place]: P: 58 PA: 138 QRS: -37 T: 62 INTERPRETIVE STATEMENTS: Sinus tachycardia Possible Left atrial enlargement Left axis deviation Pulmonary disease pattern Nonspecific T wave abnormality Abnormal ECG Compared to ECG 01/17/2020 16:45:48 Left-axis deviation now present Atrial fibrillation no longer present Myocardial infarct finding no longer present Possible ischemia no longer present T-wave abnormality still present Electronically Signed On 01-27-20 14:22:26 CDT by Casper Jon
[2020-01-27 15:03] VITALS: TEMP 98.2
[2020-01-27 15:04] VITALS: BP 99/75; O2SAT 100
== END 2020-01-27 14:47 | disposition home or self-care (01) ==
LOC: ER 07:12 → ERHOLD 13:56 → UNDOADMIN 13:56 → 4TH 14:07 → ERHOLD 14:07 → ER 14:47
DX: J90 Pleural effusion, not elsewhere classified (principal); E86.0 Dehydration; R09.02 Hypoxemia; R06.00 Dyspnea, unspecified; Z88.0 Allergy status to penicillin; Z88.8 Allergy status to other drugs, medicaments and biological substances; Z03.818 Encounter for observation for suspected exposure to other biological agents ruled out
CPT/HCPCS: 96361; 93005; 87040 ×2; 87088; 85025; 80048; 36415; 85610; 83605 ×2; 85730; 84484; 84145; 83880; 87804 ×2; 71045; 51702; 96374; 99285; U0001; J7040 ×2; J2930; 81003; 81015; 87086

== ENCOUNTER 2020-01-27 14:20 | Inpatient (IN) | payer OTHER ==
[2020-01-27] MEDS ORDERED: BISACODYL 10 MG RECTAL SUPP PR PRN (19:00)
[2020-01-27] MEDS ORDERED: MORPHINE 2 MG/ML SYR IV PRN (19:00)
[2020-01-27] MEDS ORDERED: ONDANSETRON 4 MG/2 ML VIAL IV PRN (19:59)
[2020-01-27] MEDS ORDERED: ACETAMINOPHEN 325 MG TABLET PO PRN (20:09)
[2020-01-27] MEDS: LORazepam 2 MG/ML VIAL IV PRN (21:32)
[2020-01-28] MEDS: LORazepam 2 MG/ML VIAL IV PRN (22:57)
[2020-01-29] MEDS: LORazepam 2 MG/ML VIAL IV PRN (14:52)
[2020-01-30] MEDS ORDERED: SCOPOLAMINE HYDROBROMIDE PATCH TD SCH (09:00)
[2020-02-01 06:05] VITALS: O2SAT 99
[2020-02-01 09:46] VITALS: BP 101/68; TEMP 99
== END 2020-02-01 12:53 | disposition home or self-care (01) | DRG 951 ==
LOC: 4TH 14:20 → 2ND 01-29 20:27
PROVIDERS: ADMIT Internal Medicine Hematology & Oncology; ATTEND Internal Medicine Hematology & Oncology
DX: Z51.5 Encounter for palliative care (principal); A41.9 Sepsis, unspecified organism; J96.22 Acute and chronic respiratory failure with hypercapnia; J96.21 Acute and chronic respiratory failure with hypoxia; J44.1 Chronic obstructive pulmonary disease with (acute) exacerbation; E87.1 Hypo-osmolality and hyponatremia; C34.90 Malignant neoplasm of unspecified part of unspecified bronchus or lung; Z66 Do not resuscitate; Z88.8 Allergy status to other drugs, medicaments and biological substances; Z79.899 Other long term (current) drug therapy; Z79.52 Long term (current) use of systemic steroids; E11.9 Type 2 diabetes mellitus without complications; E78.5 Hyperlipidemia, unspecified; Z85.118 Personal history of other malignant neoplasm of bronchus and lung; Z95.5 Presence of coronary angioplasty implant and graft; R79.89 Other specified abnormal findings of blood chemistry; R91.8 Other nonspecific abnormal finding of lung field
CPT/HCPCS: 82947